=== PATIENT | male | born 1955 | race Caucasian/White ===

== ENCOUNTER → 2022-07-01 08:19 | Outpatient (POV) | payer BC, SELFPAY ==
[2022-07-01 08:30] VITALS: BP 136/78; PULSE 92; RESP 18; O2SAT 98; BMI 27.2
--- NOTE | 2022-07-01 09:10 | EXP.PAIN.OV ---
HPI Data of Consult Patient: new to practice Consult date: 07/01/22 Requesting Physician: Yuli Hyatt APRN Consult Narrative Reason for consult: Low back pain History of present illness: Mr. Damian is a 66 year old male who presents today as a new patient. He is a referral from [facility]. Today he rates his pain a 7 out of 10. Patient states his pain is all in his low back and describes it as a aching sensation with occasional sharp, burning sensations with certain activity. He does state this has been going on for years and progressively worsened over time. Patient denies any specific trauma or injury that initially led to this pain symptoms. He states that he has tried [id number] Tylenol and ibuprofen along with heat and physical therapy in the past. Patient states that physical therapy did make his pain worse. He also states approximately 15 years ago he was with a different pain management group and did try some injections however he does not state that they provided significant improvement. Patient has been to a neurosurgeon Dr. Dixon in [place] who is stating that he may benefit from a lumbar fusion however is recommending conservative therapy first. Patient states he has had recent imaging at [facility]. He states in the past he was put on pain medications however he did not like taking these and now only takes the cmoc-hbj-oyrgxys medications as needed. CC: Yuli Hyatt APRN [facility] Disclaimer: The information contained in this section may have been updated after the patient was seen, as this information can be updated by other users. Medical History (Updated 07/01/22 @ 09:19 by Yuli Hyatt APRN) HLD (hyperlipidemia) HTN (hypertension) Prediabetes Seasonal allergies Surgical History (Updated 07/01/22 @ 08:48 by Bhavana Ash RN) H/O prostate biopsy Family History (Updated 07/01/22 @ 08:47 by Bhavana Ash RN) Other Diabetes Heart disease Hypertension Social History (Updated 07/01/22 @ 08:49 by Bhavana Ash RN) Smoking Status: Current every day smoker alcohol intake: never current occupational status: employed Travel in the last 8 weeks: None Review of Systems Review of Systems Review of systems:: pertinent systems reviewed and negative unless documented below Review of systems (narrative): Review of Systems: General: No recent weight changes, no fever, no sleep disturbances Respiratory: No cough, no shortness of air, no recurring pulmonary infections Cardiovascular/peripheral vascular: No chest pain, no palpitations, no edema, no shortness of breath Gastrointestinal: No new onset incontinence, normal bowel movements reported Genitourinary: No new onset incontinence Musculoskeletal: Low back pain Psychiatric: [Normal mood/affect] Neurological: [Denies weakness in extremities], [denies balance issues] Meds Home Medications and Allergies Home Medications Medication Instructions Recorded Confirmed Type cetirizine 10 mg tablet 10 mg PO DAILY ALLERGIES 07/01/22 07/01/22 History hydrochlorothiazide 25 mg tablet 25 mg PO DAILY Fluid 07/01/22 07/01/22 History hydrocodone 5 mg-acetaminophen 325 1 tab PO Q6H PRN Pain 07/01/22 07/01/22 History mg tablet losartan 100 mg tablet 100 mg PO DAILY BLOOD PRESSURE 07/01/22 07/01/22 History omeprazole 20 mg capsule,delayed 20 mg PO DAILY GERD 07/01/22 07/01/22 History release New Prescriptions to Start Prescriptions: Allergies Allergy/AdvReac Type Severity Reaction Status Date / Time No Known Allergies Allergy Verified 07/01/22 08:51 Objective Vital signs: Pulse Resp BP Pulse Ox 92 H 18 136/78 98 07/01/22 08:30 07/01/22 08:30 07/01/22 08:30 07/01/22 08:30 Narrative: Physical Exam: General: Alert and oriented x3, no acute distress, pleasant and cooperative Lungs: Respirations even and unlabored, symmetrical chest expansion Eyes: PERRL Musculoskeletal: Flexi
== END | disposition home or self-care (01) ==
PROVIDERS: Visit Provider Nurse Practitioner Family
DX: M51.36 Other intervertebral disc degeneration, lumbar region (principal); M47.816 Spondylosis without myelopathy or radiculopathy, lumbar region
CPT/HCPCS: 99202; G0463

== ENCOUNTER 2022-07-14 08:05 | Day surgery (SDC) | payer BC, SELFPAY ==
[2022-07-14 08:21] VITALS: BP 140/63; PULSE 62; RESP 18; TEMP 36.4; O2SAT 97; BMI 27.2
[2022-07-14 08:42] VITALS: BP 147/76; PULSE 87; RESP 18; O2SAT 98
[2022-07-14 08:43] VITALS: BP 147/76; PULSE 87; RESP 18; O2SAT 98
[2022-07-14 08:51] VITALS: BP 132/83; PULSE 82; RESP 18; O2SAT 97
--- NOTE | 2022-07-14 08:51 | P.PCN_ITS ---
Procedure Date: 07/14/22 Time: 08:30 Anesthesiologist:: Albert Gibbs CRNA Complications:: None Pre-procedure Diagnosis:: Degenerative disc lumbar spine multilevels. Lumbar spondylosis. Multilevel lumbar facet arthropathy. Chronic low back pain. Lumbar radiculopathy Post-procedure Diagnosis:: Same. Indications for Procedure:: Patient is a very pleasant 66-year-old male comes our clinic today for bilateral lumbar L3-4, L4-5 medial branch blocks/facet block. Patient describes his low back pain as constant, dull, aching. Patient has pain with flexion, extension, left and right rotation. He rates his pain 7/10 Procedure Details:: Informed consent was obtained and the risk and benefits of the procedure was explained to the patient. Patient was taken to the procedure room where noninvasive monitors were placed, including noninvasive blood pressure cuff as well as pulse oximeter. The area over the lumbar spine was cleansed using chlorhexidine as a cleansing solution. I anesthetized the skin and subcutaneous tissues with 1% Lidocaine. I placed 22-gauge spinal needles into the facet joint/ medial branches of [L3-L4, L4-L5 bilaterally. Needle placement was confirmed with fluoroscopy. After confirmation of needle placement, each site was injected with 1 mL of 1% lidocaine and 0.25 % Marcaine and 10 mg of Depo- Medrol. A total of 80 mg of depo medrol was used for bilateral medial branch blocks of [L3-L4, L4-L5 bilaterally. Patient tolerated the procedure without difficulty. There were no complications. Plan and Disposition:: Patient was evaluated 10 minutes post procedure. He reports 80 to 90% improvement terms of his overall low back pain with flexion, extension, left and right rotation. Patient was discharged without incident.
== END 2022-07-14 08:51 | disposition home or self-care (01) ==
PROVIDERS: PCP Pediatrics; Visit Provider Nurse Anesthetist, Certified Registered
DX: M51.16 Intervertebral disc disorders with radiculopathy, lumbar region (principal); M47.26 Other spondylosis with radiculopathy, lumbar region; G89.29 Other chronic pain
CPT/HCPCS: 64493; 64494; J1040

== ENCOUNTER → 2022-07-29 09:10 | Outpatient (POV) | payer BC, SELFPAY ==
--- NOTE | 2022-07-29 10:12 | EXP.PAIN.SOA ---
[facility] Pain Management SOAP Note Subjective:: Patient is a pleasant 66-year-old male who presents today for follow-up of lumbar medial branch block bilaterally L3-L4 and L4-L5 on 07/14/2022. We are currently treating the patient for degenerative disc disease of lumbar spine multilevels with lumbar radiculopathy symptoms, lumbar spondylosis, lumbar facet arthropathy. Today he rates at least 50% improvement following this injections however he states it only lasted approximately 4 days. Patient rates his pain a 8 out of 10 and denies any new trauma or injury. He continues to have a significant pain in his low back and describes it as an aching, throbbing sensation that is worse with increased activity he does state that he is experiencing more pain along the left side than the right and does have some radiating pain into his left groin. Patient does continue to state that he has trouble with bending, twisting or lifting due to his low back pain. It does interfere with his ability to perform activities of daily living such as cooking and cleaning. Patient is not on any scheduled medications. His Ganesh is [phone]. Its been reviewed and appropriate. Review of Systems: General: No recent weight changes, no fever, no sleep disturbances Respiratory: No cough, no shortness of air, no recurring pulmonary infections Cardiovascular/peripheral vascular: No chest pain, no palpitations, no edema, no shortness of breath Gastrointestinal: No new onset incontinence, normal bowel movements reported Genitourinary: No new onset incontinence Musculoskeletal: Low back pain Psychiatric: [Normal mood/affect] Neurological: [Denies weakness in extremities], [denies balance issues] Objective:: Physical Exam: General: Alert and oriented x3, no acute distress, pleasant and cooperative Lungs: Respirations even and unlabored, symmetrical chest expansion Eyes: PERRL Musculoskeletal: Flexion and extension of lumbar [spine] somewhat guarded secondary to pain, [antalgic gait noted] positive Kemps test Neurological: Speech clear, no gross sensory deficit Assessment:: Degenerative disc disease of lumbar spine with lumbar radiculopathy symptoms, lumbar spondylosis, lumbar facet arthropathy Plan:: Patient continues to experience significant pain in his low back with limited range of motion. Patient did have a positive Kemps test and did get at least 50% improvement from his last lumbar medial branch block. I have discussed with the patient that he may benefit from repeat lumbar medial branch block bilaterally. Risk and benefits were discussed with the patient and he would like to proceed forward with this plan of care. Patient is not on any blood thinners. We will schedule him for a lumbar medial branch block #2 bilaterally L3-L4 and L4-L5. Patient has been instructed to contact the clinic with any concerns before the next appointment. Dr. Campos has reviewed this note and agrees with this plan of care. This note was dictated using voice recognition software and make contain errors or omissions. [facility] Disclaimer: The information contained in this section may have been updated after the patient was seen, as this information can be updated by other users. Medical History HLD (hyperlipidemia) HTN (hypertension) Prediabetes Seasonal allergies Surgical History H/O prostate biopsy Family History Other Diabetes Heart disease Hypertension Social History Smoking Status: Current every day smoker alcohol intake: never current occupational status: employed Travel in the last 8 weeks: None
[2022-07-29 10:39] VITALS: BP 126/71; PULSE 83; RESP 18; O2SAT 97; BMI 27.2
== END ==
PROVIDERS: PCP Pediatrics; Visit Provider Nurse Practitioner Family
DX: M51.16 Intervertebral disc disorders with radiculopathy, lumbar region (principal); M47.26 Other spondylosis with radiculopathy, lumbar region
CPT/HCPCS: 99212; G0463

== ENCOUNTER 2022-09-18 08:26 | Day surgery (SDC) | payer BC, SELFPAY ==
[2022-09-18 08:48] VITALS: BP 117/76; PULSE 85; RESP 16; TEMP 36.9; O2SAT 97; BMI 25.8
--- NOTE | 2022-09-18 09:06 | P.PCN_ITS ---
Procedure Date: 09/18/22 Time: 09:00 Anesthesiologist:: Albert Gibbs CRNA Complications:: None Pre-procedure Diagnosis:: Degenerative disc lumbar spine multilevels. Lumbar radiculopathy. Lumbar spondylosis. Multilevel lumbar facet arthropathy Post-procedure Diagnosis:: Same. Indications for Procedure:: Patient is a very pleasant 67-year-old male that comes our clinic today for bilateral lumbar medial branch block L3-4, L4-5. Patient has had this in the past with moderate improvement terms of his low back pain. Patient reports difficulty standing for any length of time. Difficulty with flexion, extension, left and right rotation. Procedure Details:: Informed consent was obtained and the risk and benefits of the procedure was explained to the patient. Patient was taken to the procedure room where noninvasive monitors were placed, including noninvasive blood pressure cuff as well as pulse oximeter. The area over the lumbar spine was cleansed using chlorhexidine as a cleansing solution. I anesthetized the skin and subcutaneous tissues with 1% Lidocaine. I placed 22-gauge spinal needles into the facet joint/ medial branches of L3-L4, L4-L5 bilaterally. Needle placement was confirmed with fluoroscopy. After confirmation of needle placement, each site was injected with 1 mL of 1% lidocaine and 0.25 % Marcaine and 10 mg of Depo- Medrol. A total of 80 mg of depo medrol was used for bilateral medial branch blocks of L3-L4, L4-L5 bilaterally. Patient tolerated the procedure without difficulty. There were no complications. Plan and Disposition:: Patient was discharged without incident.
[2022-09-18 09:08] VITALS: BP 132/67; PULSE 62; RESP 18; O2SAT 98
[2022-09-18 09:11] VITALS: BP 133/55; PULSE 74; RESP 18; O2SAT 95
[2022-09-18 09:12] VITALS: BP 133/55; PULSE 74; RESP 18; O2SAT 95
== END 2022-09-18 09:08 | disposition home or self-care (01) ==
PROVIDERS: PCP Pediatrics; Visit Provider Nurse Anesthetist, Certified Registered
DX: M47.896 Other spondylosis, lumbar region (principal); M51.16 Intervertebral disc disorders with radiculopathy, lumbar region
CPT/HCPCS: 64493; 64494; J1040

== ENCOUNTER → 2022-10-07 09:33 | Outpatient (POV) | payer BC, SELFPAY ==
--- NOTE | 2022-10-07 09:53 | EXP.PAIN.SOA ---
[facility] Pain Management SOAP Note Subjective:: Patient is a pleasant 67-year-old male who presents today for follow-up of his second lumbar medial branch block L3-L4 and L4-L5 on 09/18/2022. We are currently treating the patient for degenerative disc disease of lumbar spine with lumbar radiculopathy symptoms, lumbar spondylosis, lumbar facet arthropathy. Today he rates his pain a 7 out of 10. Patient denies any new trauma or injury. He does state that he feels like his pain has changed. He does state that he is having more pain in his low back along the left side and into his left hip. Patient does describe this as a burning, stinging sensation that is worse with increased activity. Patient does state that prolonged sitting or standing makes his pain worse. Patient does feel like due to his new pain he is only had about 25% improvement from the previous injection. He states he feels more overall soreness after this injection. Patient does state the pain continues to interfere with his ability perform activities of daily living such as cooking and cleaning. He is not on any scheduled medications. His Ganesh is [id number]. Its been reviewed and appropriate. Review of Systems: General: No recent weight changes, no fever, no sleep disturbances Respiratory: No cough, no shortness of air, no recurring pulmonary infections Cardiovascular/peripheral vascular: No chest pain, no palpitations, no edema, no shortness of breath Gastrointestinal: No new onset incontinence, normal bowel movements reported Genitourinary: No new onset incontinence Musculoskeletal: Low back pain left hip pain Psychiatric: [Normal mood/affect] Neurological: [Denies weakness in extremities], [denies balance issues] Objective:: Physical Exam: General: Alert and oriented x3, no acute distress, pleasant and cooperative Lungs: Respirations even and unlabored, symmetrical chest expansion Eyes: PERRL Musculoskeletal: Flexion and extension of lumbar [spine] somewhat guarded secondary to pain, [antalgic gait noted] extreme point tenderness along left SI with positive left Cristiano's, Ken's, Gaenslen's, compression and distraction exam Neurological: Speech clear, no gross sensory deficit Assessment:: Degenerative disc disease of lumbar spine with lumbar radiculopathy symptoms, lumbar spondylosis, lumbar facet arthropathy, left-sided sacroiliitis Plan:: Patient is experiencing worsening pain and he has low back and left hip. Patient did have limited range of motion of his lumbar spine with extreme point tenderness along his left SI and a positive left Cristiano's, Ken's, Gaenslen's, compression and distraction exam. I have discussed with the patient that he may benefit from a left SI injection. Risk and benefits were explained to the patient he would like to proceed forward with this plan of care. I have also counseled the patient that following this upcoming injection he may overall notice once this pain is taking care of that the lumbar medial branch block did provide much more relief than what he initially thought due to having the new sacroiliitis pain. We will follow-up with this at his next follow-up. I will also order the patient a compounded cream. Patient will be scheduled for a diagnostic left SI injection. Patient has been instructed to contact the clinic with any concerns before the next appointment. Dr. Campos has reviewed this note and agrees with this plan of care. This note was dictated using voice recognition software and make contain errors or omissions. [facility] Disclaimer: The information contained in this section may have been updated after the patient was seen, as this information can be updated by other users. Medical History HLD (hyperlipidemia) HTN (hypertension) Prediabetes Seasonal allergies Surgical History H/O prostate biopsy Family History (Re
[2022-10-07 10:30] VITALS: BP 149/74; PULSE 74; RESP 18; O2SAT 98; BMI 26.5
== END ==
PROVIDERS: Visit Provider Nurse Practitioner Family
DX: M51.16 Intervertebral disc disorders with radiculopathy, lumbar region (principal); M47.26 Other spondylosis with radiculopathy, lumbar region; M46.1 Sacroiliitis, not elsewhere classified
CPT/HCPCS: 99212; G0463

== ENCOUNTER 2022-10-27 07:47 | Day surgery (SDC) | payer BC, SELFPAY ==
[2022-10-27 08:13] VITALS: BP 130/76; PULSE 92; RESP 18; TEMP 36.5; O2SAT 98; BMI 26.5
[2022-10-27 08:33] VITALS: BP 140/73; PULSE 85; RESP 18; O2SAT 95
[2022-10-27 08:34] VITALS: BP 140/73; PULSE 85; RESP 18; O2SAT 95
--- NOTE | 2022-10-27 08:39 | P.PCN_ITS ---
Procedure Date: 10/27/22 Time: 08:20 Anesthesiologist:: Albert Gibbs CRNA Complications:: None Pre-procedure Diagnosis:: Left sacroiliitis Post-procedure Diagnosis:: Same Indications for Procedure:: Very pleasant 67-year-old male that comes our clinic today for repeat left sacroiliac joint injection of cortisone. Patient has left posterior hip pain he describes as constant, dull, aching. He reports responding well to previous injections in the left sacroiliac joint. He rates his pain today 7/10. Procedure Details:: Procedure: Left sacroiliac injection under fluoroscopy Informed consent was obtained and the risk and benefits of the procedure were explained to the patient.~ The patient was taken to the procedure room and noninvasive monitors were placed including noninvasive blood pressure cuff and pulse oximeter.~ The patient was placed prone on the procedure table.~ The~ left hip was cleansed using Betadine as a cleansing solution.~ C-arm fluorosocpy was used to view the left SI joint.~ The skin and subcutaneous tissues were anesthetized using Lidocaine 1.5% and a 25-gauge needle.~ After this, a 22-gauge spinal needle was inserted under fluoroscopic guidance into the inferior aspect of the left SI joint.~ Omnipaque dye was injected and a good spread was seen throughout the joint.~ After this, approximately 5 mL of bupivacaine 0.25% and Depo-Medrol 40 mg was incrementally injected into the sacroiliac joint.~ The pa tient tolerated the procedure well with no complications.~ The patient was observed in the Pain Clinic for a period of 30-45 minutes, then discharged home neurologically intact.~ Plan and Disposition:: Patient was reevaluated 10 minutes post procedure. He reports 90% relief in terms of his left posterior hip pain.
[2022-10-27 08:40] VITALS: BP 146/84; PULSE 84; RESP 18; O2SAT 98
== END 2022-10-27 08:40 | disposition home or self-care (01) ==
PROVIDERS: PCP Pediatrics; Visit Provider Nurse Anesthetist, Certified Registered
DX: M46.1 Sacroiliitis, not elsewhere classified (principal)
CPT/HCPCS: 27096; G0260; J1040

== ENCOUNTER → 2022-11-16 08:51 | Outpatient (POV) | payer BC, SELFPAY ==
[2022-11-16 09:13] VITALS: BP 135/75; PULSE 87; RESP 20; BMI 26.5
--- NOTE | 2022-11-16 12:39 | A.OFFVIS_ITS ---
[facility] Pain Management SOAP Note Subjective:: This patient is a very pleasant 67-year-old male that comes our clinic today for follow-up visit after receiving left sacroiliac joint injection on 10/27/2022. Patient reports moderate relief in terms of his left posterior hip pain. Patient is also status post medial branch block lumbar spine L4-5, L5-S1. Patient reports he received moderate relief from this injection as well. Patient's main complaint today is low back pain as well as bilateral leg radiculopathy to the feet. Patient has difficulty standing or ambulating for any length of time. Sitting relieves his pain. Patient works at [employer] full- time. He is currently being managed with gabapentin 300 mg 1 p.o. 3 times daily. The patient's Ganesh #[id number] has been reviewed and appropriate. I discussed in detail with the patient regarding lumbar epidural steroid injection at the L4-5 level. Patient is continuing with some degree of low back pain and bilateral hip and leg radicular symptoms. He describes the low back pain as constant, dull, aching. He rates his pain today 6/10 Objective:: Patient is awake alert [place] x3. In no acute distress. Flexion-extension lumbar spine somewhat guarded secondary to pain. Deep tendon reflexes upper and lower extremities normal. Motor strength upper and lower extremities normal. There is no gross sensory deficit. Gait is normal. Assessment:: Degenerative disease lumbar spine multilevels. Lumbar radiculopathy. Bilateral sacroiliitis. Plan:: Discussed in detail with the patient regarding lumbar epidural steroid injec tion. Answered his questions. He wishes to proceed. We discussed risk versus benefits. His Ganesh #[id number] has been reviewed and appropriate. We will refill his gabapentin 300 mg 1 p.o. 3 times daily. [facility] Disclaimer: The information contained in this section may have been updated after the patient was seen, as this information can be updated by other users. Medical History HLD (hyperlipidemia) HTN (hypertension) Prediabetes Seasonal allergies Surgical History H/O prostate biopsy Family History Other Diabetes Heart disease Hypertension Social History Smoking Status: Current every day smoker alcohol intake: never substance use type: denies use current occupational status: other Travel in the last 8 weeks: None
== END | disposition home or self-care (01) ==
PROVIDERS: PCP Pediatrics; Visit Provider Nurse Anesthetist, Certified Registered
DX: M51.16 Intervertebral disc disorders with radiculopathy, lumbar region (principal); M46.1 Sacroiliitis, not elsewhere classified
CPT/HCPCS: 99212; G0463

== ENCOUNTER 2022-12-01 07:54 | Day surgery (SDC) | payer BC, SELFPAY ==
[2022-12-01 08:08] VITALS: BP 145/82; PULSE 81; RESP 20; TEMP 36.6; O2SAT 97; BMI 27.2
[2022-12-01 08:15] VITALS: BP 145/82; PULSE 81; RESP 18; TEMP 36.6; O2SAT 97; BMI 27.2
[2022-12-01 08:28] VITALS: BP 162/82; PULSE 67; RESP 18; O2SAT 95
[2022-12-01 08:29] VITALS: BP 162/82; PULSE 71; RESP 18; O2SAT 97
[2022-12-01 08:35] VITALS: BP 146/74; PULSE 72; RESP 18; O2SAT 97
--- NOTE | 2022-12-01 09:07 | P.PCN_ITS ---
Procedure Date: 12/01/22 Time: 08:19 Anesthesiologist:: Albert Gibbs CRNA Complications:: None Pre-procedure Diagnosis:: Degenerative disc disease lumbar spine multilevels. Lumbar radiculopathy. Post-procedure Diagnosis:: Same. Indications for Procedure:: Patient is a very pleasant 67-year-old male who comes our clinic today for a lumbar epidural steroid injection at L4-5 level. Patient complains of low back pain as well as bilateral hip and leg radicular symptoms at times. He is being managed with gabapentin 300 mg 1 p.o. 3 times daily. Patient reports this medicine helps with his pain on a daily basis. Patient also reports bilateral hip and leg radicular symptoms at times. He spends 8 to 12 hours on his feet daily working at [employer]. He rates his pain today 07/18. Procedure Details:: Procedure: Lumbar epidural steroid injection under fluoroscopy Informed consent was obtained and the risks and benefits of the procedure were explained to the patient. The patient was taken to the procedure room and noninvasive monitors placed, including noninvasive blood pressure cuff and pulse oximeter. The back was viewed using C-arm Fluoroscopy and prepped using Chloraprep as a cleansing solution and the L4-L5 interspace was palpated. Skin and subcutaneous tissues were anesthetized using lidocaine 1.5% and a 25-gauge needle. After this, an 18-gauge Touhy epidural needle was placed into the L4-L5 interspace and advanced using fluoroscopic guidance and loss of resistance to air until the epidural space was encountered. After confirmation of needle placement in the epidural space, with dye, a solution containing normal saline, 3 mL and Depo-Medrol 80 mg were incrementally injected into the lumbar epidural space. The patient tolerated the procedure well with no complications. The patient was observed in the Pain Clinic and then discharged home neurologically intact. Plan and Disposition:: Patient was discharged without incident.
== END 2022-12-01 08:35 | disposition home or self-care (01) ==
PROVIDERS: PCP Pediatrics; Visit Provider Nurse Anesthetist, Certified Registered
DX: M51.16 Intervertebral disc disorders with radiculopathy, lumbar region (principal)
CPT/HCPCS: 62323; J1040

== ENCOUNTER → 2022-12-16 08:21 | Outpatient (POV) | payer BC, SELFPAY ==
[2022-12-16 08:38] VITALS: BP 140/75; PULSE 77; RESP 18; O2SAT 95; BMI 27.2
--- NOTE | 2022-12-16 08:52 | EXP.PAIN.SOA ---
[facility] Pain Management SOAP Note Subjective:: Patient is a pleasant 67-year-old male who presents today for follow-up of lumbar epidural steroid injection L4-L5 on 12/01/2022. We are currently treating the patient for degenerative disc disease of lumbar spine with lumbar radiculopathy symptoms, lumbar spondylosis, lumbar facet arthropathy. Today he rates his pain a 4 out of 10. Patient denies any new trauma or injury. He does state that he has had at least 50% improvement following this injection and feels like it still continuing to provide relief. He states overall he has had a decrease in his pain level and neck can move around easier. He does state though, he continues to have more pain along the left side and weakness that he notices more prominent with increased activity such as walking. Patient is currently managed with gabapentin 300 mg 3 times a day and diclofenac 50 mg twice daily. Patient denies any side effects from these medications. He states that he has noticed additional improvement with this medication combination. He does think that possibly the gabapentin would do better at a higher dosage. He is requesting a slight increase if possible. His Ganesh has been reviewed and is appropriate. Review of Systems: General: No recent weight changes, no fever, no sleep disturbances Respiratory: No cough, no shortness of air, no recurring pulmonary infections Cardiovascular/peripheral vascular: No chest pain, no palpitations, no edema, no shortness of breath Gastrointestinal: No new onset incontinence, normal bowel movements reported Genitourinary: No new onset incontinence Musculoskeletal: Low back pain Psychiatric: [Normal mood/affect] Neurological: [Denies weakness in extremities], [denies balance issues] Objective:: Physical Exam: General: Alert and oriented x3, no acute distress, pleasant and cooperative Lungs: Respirations even and unlabored, symmetrical chest expansion Eyes: PERRL Musculoskeletal: Flexion and extension of lumbar [spine] somewhat guarded secondary to pain, [antalgic gait noted] Neurological: Speech clear, no gross sensory deficit Assessment:: Degenerative disc disease of lumbar spine with lumbar radiculopathy symptoms, lumbar spondylosis, lumbar facet arthropathy Plan:: I will refill the patient's diclofenac 50 mg twice daily and gabapentin 300 mg and change it to 4 times a day. Patient will be given a 1 month supply of these medications. Patient will return to clinic in 1 month for reevaluation of symptoms and plan of care. Patient has been instructed to contact the clinic with any concerns before the next appointment. Dr. Campos has reviewed this note and agrees with this plan of care. This note was dictated using voice recognition software and make contain errors or omissions. [facility] Disclaimer: The information contained in this section may have been updated after the patient was seen, as this information can be updated by other users. Medical History HLD (hyperlipidemia) HTN (hypertension) Prediabetes Seasonal allergies Surgical History H/O prostate biopsy Family History Other Diabetes Heart disease Hypertension Social History Smoking Status: Current every day smoker alcohol intake: never substance use type: denies use current occupational status: retired Travel in the last 8 weeks: None
== END | disposition home or self-care (01) ==
PROVIDERS: PCP Pediatrics; Visit Provider Nurse Practitioner Family
DX: M51.16 Intervertebral disc disorders with radiculopathy, lumbar region (principal); M47.26 Other spondylosis with radiculopathy, lumbar region
CPT/HCPCS: 99212; G0463

== ENCOUNTER → 2023-01-13 08:24 | Outpatient (POV) | payer BC, SELFPAY ==
[2023-01-13 08:44] VITALS: BP 156/78; PULSE 80; RESP 18; O2SAT 95; BMI 27.2
--- NOTE | 2023-01-13 09:15 | XR_ITS ---
FINAL REPORT CLINICAL HISTORY: LOW BACK PAIN, NUMBNESS/TINGLING COMPARISON: None FINDINGS: 5 views of the lumbar spine were obtained. There is no evidence of fracture or dislocation. There is moderate degenerative change present. There is severe degenerative disc disease present at the L2-3 level with mild retrolisthesis of L2 on L3. There is a mild left curvature of the lumbar spine. Facet osteoarthropathy is present in the lower lumbar spine. Mild vascular calcifications are noted. IMPRESSION: Degenerative changes present in the lumbar spine, most severe at the L2-3 level with mild retrolisthesis of L2 on L3. Reviewed, Interpreted and Dictated by Easton Jacome III, MD Transcribed by Jessica Sharma Authenticated and [facility]
--- NOTE | 2023-01-13 09:32 | EXP.PAIN.SOA ---
[facility] Pain Management SOAP Note Subjective:: Patient is a pleasant 67-year-old male who presents today for follow-up and medication refill. We are currently treating the patient for degenerative disc disease of lumbar spine with lumbar radiculopathy symptoms, lumbar spondylosis, lumbar facet arthropathy. Today he rates his pain a 6 out of 10. Patient denies any new trauma or injury. Patient states he still continues to have worsening pain in his low back with radiating symptoms into his leg. He does describe this as an aching, throbbing sensation with burning and stinging sensation. Patient states the pain is worse with increased activity and it frequently interferes with his ability perform activities of daily living such as cooking and cleaning. Patient did have more than 50% relief on his last epidural and is interested in repeating this injection. Patient does also state he continues to feel like his back symptoms have changed and that he felt like his vertebra have moved from what they had been. Patient denies any recent imaging. He is currently managed with diclofenac 50 mg twice a day and gabapentin 300 mg 4 times a day. Patient denies any side effects from this medication. He states it does help manage some of his symptoms. He is also prescribed compounding cream. His Ganesh has been reviewed and appropriate. Review of Systems: General: No recent weight changes, no fever, no sleep disturbances Respiratory: No cough, no shortness of air, no recurring pulmonary infections Cardiovascular/peripheral vascular: No chest pain, no palpitations, no edema, no shortness of breath Gastrointestinal: No new onset incontinence, normal bowel movements reported Genitourinary: No new onset incontinence Musculoskeletal: Low back pain left hip pain Psychiatric: [Normal mood/affect] Neurological: [Denies weakness in extremities], [denies balance issues] Objective:: Physical Exam: General: Alert and oriented x3, no acute distress, pleasant and cooperative Lungs: Respirations even and unlabored, symmetrical chest expansion Eyes: PERRL Musculoskeletal: Flexion and extension of lumbar [spine] somewhat guarded secondary to pain, [antalgic gait noted] Neurological: Speech clear, no gross sensory deficit Assessment:: Degenerative disc disease of lumbar spine with lumbar radiculopathy symptoms, lumbar facet arthropathy, lumbar spondylosis Plan:: Patient continues to experience worsening low back and leg pain with limited range of motion. I have discussed with the patient due to him feeling that his back pain has changed that I will order x-ray and MRI without contrast of his lumbar spine. I also discussed with the patient that he may benefit from a repeat lumbar epidural steroid injection. Risk and benefits were discussed with the patient and he would like to proceed forward with this plan of care. Patient did previously have at least 50% improvement following the last epidural injection. I will refill the patient's gabapentin 300 mg 4 times a day and diclofenac 50 mg twice a day and provide a 1 month supply of this medication. Patient will be scheduled for an LESI L4 4 through L5. Patient has been instructed to contact the clinic with any concerns before the next appointment. Dr. Campos has reviewed this note and agrees with this plan of care. This note was dictated using voice recognition software and make contain errors or omissions. [facility] Disclaimer: The information contained in this section may have been updated after the patient was seen, as this information can be updated by other users. Medical History HLD (hyperlipidemia) HTN (hypertension) Prediabetes Seasonal allergies Surgical History H/O prostate biopsy Family History Other Diabetes Heart disease Hypertension
== END | disposition home or self-care (01) ==
PROVIDERS: Visit Provider Nurse Practitioner Family
DX: M51.16 Intervertebral disc disorders with radiculopathy, lumbar region (principal); M47.26 Other spondylosis with radiculopathy, lumbar region
CPT/HCPCS: 72110; 99212; G0463

== ENCOUNTER → 2023-01-13 09:11 | Outpatient (CLI) | payer BC, SELFPAY | PROVIDERS: PCP Pediatrics; Visit Provider Nurse Practitioner Family | DX: M54.50 Low back pain, unspecified (principal) ==

== ENCOUNTER 2023-01-26 08:25 | Day surgery (SDC) | payer BC, SELFPAY ==
[2023-01-26 08:35] VITALS: BP 133/66; PULSE 72; O2SAT 93; BMI 27.2
[2023-01-26 09:01] VITALS: BP 111/66; PULSE 78; RESP 18; O2SAT 95
[2023-01-26 09:04] VITALS: BP 111/66; PULSE 78; RESP 18; O2SAT 95
--- NOTE | 2023-01-26 09:05 | P.PCN_ITS ---
Procedure Date: 01/26/23 Time: 09:00 Anesthesiologist:: Albert Gibbs CRNA Complications:: None Pre-procedure Diagnosis:: Degenerative disc lumbar spine multilevels. Lumbar radiculopathy. Lumbar spondylosis. Multilevel lumbar facet arthropathy. Post-procedure Diagnosis:: Same. Indications for Procedure:: Patient is a very pleasant 67-year-old male comes our clinic today for repeat lumbar epidural steroid injection at the L4-5 level. Patient reports moderate to significant improvement terms of his overall low back pain as well as bilateral hip and leg radicular symptoms with previous injections at the same level. He rates his pain 7/10. Procedure Details:: Procedure: Lumbar epidural steroid injection under fluoroscopy Informed consent was obtained and the risks and benefits of the procedure were explained to the patient. The patient was taken to the procedure room and noninvasive monitors placed, including noninvasive blood pressure cuff and pulse oximeter. The back was viewed using C-arm Fluoroscopy and prepped using Chl oraprep as a cleansing solution and the L4-L5 interspace was palpated. Skin and subcutaneous tissues were anesthetized using lidocaine 1.5% and a 25-gauge needle. After this, an 18-gauge Touhy epidural needle was placed into the L4-L5 interspace and advanced using fluoroscopic guidance and loss of resistance to air until the epidural space was encountered. After confirmation of needle placement in the epidural space, with dye, a solution containing normal saline, 3 mL and Depo-Medrol 80 mg were incrementally injected into the lumbar epidural space. The patient tolerated the procedure well with no complications. The patient was observed in the Pain Clinic and then discharged home neurologically intact. Plan and Disposition:: Patient was discharged without incident.
[2023-01-26 09:10] VITALS: BP 105/66; PULSE 74; O2SAT 93
== END 2023-01-26 09:06 | disposition home or self-care (01) ==
PROVIDERS: PCP Pediatrics; Visit Provider Nurse Anesthetist, Certified Registered
DX: M51.16 Intervertebral disc disorders with radiculopathy, lumbar region (principal); M47.26 Other spondylosis with radiculopathy, lumbar region
CPT/HCPCS: 62323; J1040

== ENCOUNTER 2023-02-11 09:31 | Outpatient (CLI) | payer BC, SELFPAY ==
--- NOTE | 2023-02-11 09:35 | MR_ITS ---
FINAL REPORT CLINICAL HISTORY: LBP WITH RADICULOPATHY MOSTLY TO THE LEFT SIDE. COMPARISON: None FINDINGS: Multiplanar MR imaging of the lumbar spine was performed without contrast. On the sagittal T2-weighted images, disc degeneration and endplate changes are seen at multiple levels. There is mild retrolisthesis of L2 on L3 and L3 on L4. There is mild anterolisthesis of L4 on L5. There is no evidence of fracture. No bony mass is identified. The conus has an unremarkable appearance. L1-2: There is no significant canal stenosis or neural foraminal narrowing. L2-3: An annular bulge is present with facet osteoarthropathy and osteophytes. There is a right foraminal disc protrusion which produces moderate right and mild left neural foraminal narrowing. L3-4: An annular bulge is present with facet osteoarthropathy. There is moderate bilateral neural foraminal narrowing present. L4-5: An annular bulge is present with facet osteoarthropathy. There is mild bilateral neural foraminal narrowing. L5-S1: Facet osteoarthropathy is present. There is no significant canal stenosis or neural foraminal narrowing. IMPRESSION: Multilevel degenerative disc disease and spondylosis as described. Reviewed, Interpreted and Dictated by Easton Jacome III, MD Transcribed by Jessica Sharma Authenticated and [facility]
== END 2023-02-11 23:59 ==
LOC: RAD 09:31
PROVIDERS: PCP Nurse Practitioner Family; Visit Provider Nurse Practitioner Family
DX: M54.50 Low back pain, unspecified (principal)
CPT/HCPCS: 72148; 76376

== ENCOUNTER → 2023-02-12 09:21 | Outpatient (POV) | payer BC, SELFPAY ==
[2023-02-12 09:49] VITALS: RESP 18; BMI 27.2
--- NOTE | 2023-02-12 10:04 | A.OFFVIS_ITS ---
[facility] Pain Management SOAP Note Subjective:: Patient is a pleasant 67-year-old male who presents today for follow-up of lumbar epidural steroid injection L4-L5 on 01/26/2023 and MRI follow-up. We are currently treating the patient for degenerative disc disease of lumbar spine with lumbar radiculopathy symptoms, lumbar spondylosis, lumbar facet arthropathy. Today he rates his pain a 6 out of 10. Patient denies any new trauma or injury. He does state that he had his pain go down to a 4 out of 10 following this injection and feels like it is still helping. He does state that the pain does come and go in certain days he is experiencing more. He does state overall that it has helped his and that he has been able to increase his a ctivity with decreased pain symptoms. Patient is currently managed with diclofenac 50 mg twice a day and gabapentin 300 mg 4 times a day. Patient denies any side effects from these medications. He does state that he has had an occasional episode of lightheadedness following taking his gabapentin. Patient denies any other extenuating circumstances while he takes this medication. He states he had talked to his primary care provider and had mentioned about Lyrica. His Ganesh has been reviewed and is appropriate. Review of Systems: General: No recent weight changes, no fever, no sleep disturbances Respiratory: No cough, no shortness of air, no recurring pulmonary infections Cardiovascular/peripheral vascular: No chest pain, no palpitations, no edema, no shortness of breath Gastrointestinal: No new onset incontinence, normal bowel movements reported Genitourinary: No new onset incontinence Musculoskeletal: Low back pain Psychiatric: [Normal mood/affect] Neurological: [Denies weakness in extremities], [denies balance issues] Objective:: Physical Exam: General: Alert and oriented x3, no acute distress, pleasant and cooperative Lungs: Respirations even and unlabored, symmetrical chest expansion Eyes: PERRL Musculoskeletal: Flexion and extension of lumbar [spine] somewhat guarded secondary to pain, [antalgic gait noted] Neurological: Speech clear, no gross sensory deficit FINAL REPORT CLINICAL HISTORY: LBP WITH RADICULOPATHY MOSTLY TO THE LEFT SIDE. COMPARISON: None FINDINGS: Multiplanar MR imaging of the lumbar spine was performed without contrast. On the sagittal T2-weighted images, disc degeneration and endplate changes are seen at multiple levels. There is mild retrolisthesis of L2 on L3 and L3 on L4. There is mild anterolisthesis of L4 on L5. There is no evidence of fracture. No bony mass is identified. The conus has an unremarkable appearance. L1-2: There is no significant canal stenosis or neural foraminal narrowing. L2-3: An annular bulge is present with facet osteoarthropathy and osteophytes. There is a right foraminal disc protrusion which produces moderate right and mild left neural foraminal narrowing. L3-4: An annular bulge is present with facet osteoarthropathy. There is moderate bilateral neural foraminal narrowing present. L4-5: An annular bulge is present with facet osteoarthropathy. There is mild bilateral neural foraminal narrowing. L5-S1: Facet osteoarthropathy is present. There is no significant canal stenosis or neural foraminal narrowing. IMPRESSION: Multilevel degenerative disc disease and spondylosis as described. Reviewed, Interpreted and Dictated by Easton Jacome III, MD Transcribed by Jessica Sharma Authenticated and [facility] Assessment:: Degenerative disc disease of lumbar spine with lumbar radiculopathy symptoms, lumbar spondylosis, lumbar facet arthropathy Plan:: Patient did have improvement following his lumbar epidural injection. I will refill the patient's diclofenac 50 mg twice a day and gabapentin 300 mg 4 times a day. I did go over with the patient that if he would like to try Lyrica instead of the gabapentin that I would recommend we decrease his gabapentin down to 3 times a day and then twice a day before changing to the Lyrica. I have went over the risk and benefits and at this time the patient would like to wait. He states that the lightheadedness is only every so often and seems random. I have recommended that he make a journal and try and keep track of any extenuating circumstances of when the lightheadedness occurs. Patient will return to clinic in 1 month for reevaluation of symptoms and plan of care. Patient has been instructed to contact the clinic with any concerns before the next appointment. Dr. Campos has reviewed this note and agrees with this plan of care. This note was dictated using voice recognition software and make contain errors or omissions. [facility] Disclaimer: The information contained in this section may have been updated after the patient was seen, as this information can be updated by other users. Medical History HLD (hyperlipidemia) HTN (hypertension) Prediabetes Seasonal allergies Surgical History H/O prostate biopsy Family History Other Diabetes Heart disease Hypertension Social History (Updated 01/26/23 @ 08:36 by Lisa Marie RN) Smoking Status: Current every day smoker alcohol intake: never substance use type: denies use current occupational status: retired Travel in the last 8 weeks: None
== END | disposition home or self-care (01) ==
PROVIDERS: Visit Provider Nurse Practitioner Family
DX: M51.16 Intervertebral disc disorders with radiculopathy, lumbar region (principal); M47.26 Other spondylosis with radiculopathy, lumbar region
CPT/HCPCS: 99212; G0463

== ENCOUNTER 2023-04-12 08:54 | Outpatient (POV) | payer BC, SELFPAY ==
[2023-04-12 08:56] VITALS: BP 127/73; PULSE 86; RESP 18; BMI 25.8
--- NOTE | 2023-04-12 09:04 | EXP.PAIN.SOA ---
[facility] Pain Management SOAP Note Subjective:: Patient is a pleasant 67-year-old male who presents today for follow-up and medication refill. We are currently treating the patient for degenerative disc disease of lumbar spine with lumbar radiculopathy symptoms, lumbar spondylosis, lumbar facet arthropathy. Today he rates his pain a 7 out of 10. Patient denies any new trauma or injury. Patient states he still continues to have worsening pain in his low back with radiating symptoms into his left leg. He does describe this as an aching, throbbing sensation with burning and stinging sensation. He states he feels like frequently he has a lot of weakness in this extremity and will feel like his leg gives to give out. Patient states that he frequently has to hold on to objects around him for fear of falling. Patient states the pain is worse with increased activity and it frequently interferes with his ability perform activities of daily living such as cooking and cleaning. He also states that he continues to have left shoulder pain and denies any advanced imaging in the past. He states years ago he did have some x-ray imaging however did not really have significant findings. He is currently managed with diclofenac 50 mg twice a day and gabapentin 300 mg 4 times a day. Patient denies any side effects from this medication. He does state from our last conversation about possibly switching over to the Lyrica that he has decreased his gabapentin to twice a day and would like to try the new medication. He is also prescribed compounding cream. His Ganesh has been reviewed and appropriate. Review of Systems: General: No recent weight changes, no fever, no sleep disturbances Respiratory: No cough, no shortness of air, no recurring pulmonary infections Cardiovascular/peripheral vascular: No chest pain, no palpitations, no edema, no shortness of breath Gastrointestinal: No new onset incontinence, normal bowel movements reported Genitourinary: No new onset incontinence Musculoskeletal: Low back pain, left shoulder pain Psychiatric: [Normal mood/affect] Neurological: [Denies weakness in extremities], [denies balance issues] Objective:: Physical Exam: General: Alert and oriented x3, no acute distress, pleasant and cooperative Lungs: Respirations even and unlabored, symmetrical chest expansion Eyes: PERRL Musculoskeletal: Flexion and extension of lumbar [spine] somewhat guarded secondary to pain, [antalgic gait noted] positive left leg raise with decreased sensation light touch and decreased reflexes Neurological: Speech clear, no gross sensory deficit Assessment:: Degenerative disc disease of lumbar spine with lumbar radiculopathy symptoms, lumbar spondylosis, lumbar facet arthropathy Plan:: Patient is experiencing worsening pain in his low back and left leg with a positive left leg raise and decreased sensation to his lower extremity as well as decreased reflexes. I have discussed with the patient that he may benefit from a left transforaminal epidural. Risk and benefits were discussed with the patient and he would like to proceed forward with this plan of care. I have also discussed with the patient that we can switch over to the pregabalin and I will send in a 1 month supply of pregabalin 150 mg 3 times a day as well as his diclofenac 50 mg twice a day. I will also order x-ray and MRI without contrast imaging of his left shoulder. Patient will be scheduled for a left transforaminal epidural steroid injection L3-L4 and L4-L5 under fluoroscopy. Patient has been instructed to contact the clinic with any concerns before the next appointment. Dr. Campos has reviewed this note and agrees with this plan of care. This note was dictated using voice recognition software and make contain errors or omissions. [facility] Disclaimer: The information contained in this section may have been updated after the patient was seen, as this information can be updated by other users. Medical History HLD (hyperlipidemia) HTN (hypertension) Prediabetes Seasonal allergies Surgical History H/O prostate biopsy Family History Other Diabetes Heart disease Hypertension Social History (Updated 01/26/23 @ 08:36 by Lisa aMrie RN) Smoking Status: Current every day smoker alcohol intake: never substance use type: denies use current occupational status: retired Travel in the last 8 weeks: None
--- NOTE | 2023-04-12 09:23 | XR_ITS ---
FINAL REPORT CLINICAL HISTORY: LT SHOULDER PAIN FINDINGS: LEFT SHOULDER 3 views of the left shoulder were obtained. There is no acute fracture or dislocation. There is mild AC joint arthrosis. Visualized joint spaces are normally aligned. Soft tissues are unremarkable. IMPRESSION: No acute bony abnormality. Reviewed, Interpreted and Dictated by Easton Jacome III, MD Transcribed by Alisha Randle Authenticated and [facility]
== END 2023-04-12 23:59 | disposition home or self-care (01) ==
PROVIDERS: PCP Pediatrics; Visit Provider Nurse Practitioner Family
DX: M51.16 Intervertebral disc disorders with radiculopathy, lumbar region (principal); M47.26 Other spondylosis with radiculopathy, lumbar region; M25.512 Pain in left shoulder
CPT/HCPCS: 73030; 99212; G0463

== ENCOUNTER 2023-05-04 07:52 | Day surgery (SDC) | payer BC, SELFPAY ==
[2023-05-04 08:17] VITALS: BP 159/91; PULSE 65; RESP 16; TEMP 36.8; O2SAT 98; BMI 28.7
[2023-05-04] MEDS: LIDOCAINE 1% 5ML PF VIAL 5 ML (08:32)
[2023-05-04] MEDS: IOPAMIDOL-200 (41%);10ML VIAL 10 ML IV (08:32)
[2023-05-04 08:33] VITALS: BP 145/69; PULSE 70; RESP 18; O2SAT 97
[2023-05-04 08:34] VITALS: BP 145/69; PULSE 64; RESP 18; O2SAT 97
--- NOTE | 2023-05-04 08:37 | P.PCN_ITS ---
Procedure Date: 05/04/23 Time: 08:30 Anesthesiologist:: Albert Gibbs CRNA Complications:: None Pre-procedure Diagnosis:: Degenerative disc lumbar spine multilevels. Lumbar radiculopathy. Lumbar disc bulge L3-4, L4-5. Lumbar spondylosis. Multilevel lumbar facet arthropathy. Post-procedure Diagnosis:: Same. Indications for Procedure:: Patient is a very pleasant 67-year-old male that comes our clinic today for left L3-4 and L4-5 transforaminal epidural steroid injection. Patient reports left hip and leg pain that increases with activity. Patient notices burning sensation in the anterior thigh. Procedure Details:: Details of the procedure were explained to the patient. The patient was taken the procedure room placed in the prone position. The area of the lumbar spine was cleansed using chlorhexidine as a cleansing solution. At this time using fluoroscopy guidance markers were placed on the left lateral border of the L3 and L4 vertebral body. The skin and subcutaneous tissue was anesthetized using 1% lidocaine and 25-gauge needle. At this time using a 22-gauge 3-1/2 inch spinal needle the left upper one third of the L3-4 foramen was accessed. The same was done at the left L4-5 foramen. Needle positions were confirmed and a lateral view using fluoroscopy and contrast dye. At this time 1 cc of 1% lidocaine +20 mg of Depo-Medrol was injected at each level after negative aspiration. [place] were removed. Band-Aid applied. Patient tolerated the procedure without difficulty. There are no complications. Plan and Disposition:: Patient was discharged without incident.
[2023-05-04 08:39] VITALS: BP 162/78; PULSE 59; RESP 18; O2SAT 98
== END 2023-05-04 08:39 | disposition home or self-care (01) ==
PROVIDERS: PCP Pediatrics; Visit Provider Nurse Anesthetist, Certified Registered
DX: M51.16 Intervertebral disc disorders with radiculopathy, lumbar region (principal); M51.26 Other intervertebral disc displacement, lumbar region; M47.26 Other spondylosis with radiculopathy, lumbar region
CPT/HCPCS: 64483; 64484; J1030; Q9966

== ENCOUNTER 2023-05-17 08:41 | Outpatient (POV) | payer BC, SELFPAY ==
[2023-05-17 08:46] VITALS: BP 134/74; PULSE 78; RESP 18; O2SAT 97; BMI 27.9
--- NOTE | 2023-05-17 09:05 | EXP.PAIN.SOA ---
[facility] Pain Management SOAP Note Subjective:: Patient is a pleasant 67-year-old male who presents today for medication refill and follow-up. He did have a left transforaminal epidural steroid injection L3-L4 and L4-L5 on 05/04/2023. Patient does state that his pain today is a 7 out of 10 and denies any new trauma or injury. He does state that he has had significant improvement in his left leg symptoms following this injections. He states he has had at least 50% improvement and feels like the pain is not as severe into his left leg. He does state that he continues to experience more pain in and around his low back and bilateral hips with the left side being worse. He describes this as an aching, throbbing sensation with some burning and stinging sensation. He does state the pain interferes with his ability to perform activities of daily living such as cooking and cleaning. He also states that he continues to have some left shoulder pain and did go and complete his x-ray imaging. Patient is currently managed with diclofenac 50 mg twice a day and pregabalin 150 mg 3 times a day. He does state that he feels like the pregabalin is working better than the gabapentin wants. He states that he is still getting adjusted to it and feels like occasionally he will feel little more lightheaded after taking it. His Ganesh has been reviewed and is appropriate. Review of Systems: General: No recent weight changes, no fever, no sleep disturbances Respiratory: No cough, no shortness of air, no recurring pulmonary infections Cardiovascular/peripheral vascular: No chest pain, no palpitations, no edema, no shortness of breath Gastrointestinal: No new onset incontinence, normal bowel movements reported Genitourinary: No new onset incontinence Musculoskeletal: Low back pain, bilateral hip pain, left shoulder pain Psychiatric: [Normal mood/affect] Neurological: [Denies weakness in extremities], [denies balance issues] Objective:: Physical Exam: General: Alert and oriented x3, no acute distress, pleasant and cooperative Lungs: Respirations even and unlabored, symmetrical chest expansion Eyes: PERRL Musculoskeletal: Flexion and extension of lumbar [spine] somewhat guarded secondary to pain, [antalgic gait noted] point tenderness along bilateral SIs with positive bilateral Cristiano's, Ken's, Gaenslen's, compression and distraction exam Neurological: Speech clear, no gross sensory deficit FINAL REPORT CLINICAL HISTORY: LT SHOULDER PAIN FINDINGS: LEFT SHOULDER 3 views of the left shoulder were obtained. There is no acute fracture or dislocation. There is mild AC joint arthrosis. Visualized joint spaces are normally aligned. Soft tissues are unremarkable. IMPRESSION: No acute bony abnormality. Reviewed, Interpreted and Dictated by Easton Jacome III, MD Transcribed by Alisha Randle Authenticated and . [facility] Assessment:: Degenerative disc disease of lumbar spine with lumbar radiculopathy symptoms, lumbar facet arthropathy, lumbar spondylosis, bilateral sacroiliitis Plan:: Patient is experiencing worsening pain in and around his bilateral hips and low back. Patient did have limited range of motion of his lumbar spine with point tenderness along his bilateral SIs and a positive bilateral Cristiano's, Ken's, Gaenslen's, compression and distraction exam. I have discussed with the patient that he may benefit from bilateral SI injection. Risk and benefits were discussed with the patient and he would like to proceed forward with this plan of care. I will also order MRI without contrast of his left shoulder to rule out possible tear. Patient has tried and failed conservative therapy. I will refill the patient's pregabalin 150 mg 3 times a day and diclofenac 50 mg twice a day and provide a 1 month supply of this medication. Patient will be scheduled for bilateral SI injections under fluoroscopy. Patient has been instructed to contact the clinic with any concerns before the next appointment. Dr. Campos has reviewed this note and agrees with this plan of care. This note was dictated using voice recognition software and make contain errors or omissions. [facility] Disclaimer: The information contained in this section may have been updated after the patient was seen, as this information can be updated by other users. Medical History Prediabetes Seasonal allergies HTN (hypertension) HLD (hyperlipidemia) Surgical History H/O prostate biopsy Family History Other Diabetes Heart disease Hypertension Social History Smoking Status: Current every day smoker alcohol intake: never substance use type: denies use current occupational status: employed Travel in the last 8 weeks: None
== END 2023-05-17 23:59 | disposition home or self-care (01) ==
PROVIDERS: PCP Pediatrics; Visit Provider Nurse Practitioner Family
DX: M51.16 Intervertebral disc disorders with radiculopathy, lumbar region (principal); M47.26 Other spondylosis with radiculopathy, lumbar region; M46.1 Sacroiliitis, not elsewhere classified
CPT/HCPCS: 99212; G0463

== ENCOUNTER 2023-06-01 13:49 | Day surgery (SDC) | payer BC, SELFPAY ==
[2023-06-01 14:04] VITALS: BP 143/77; PULSE 75; RESP 16; TEMP 36.7; O2SAT 90; BMI 28.7
[2023-06-01] MEDS: LIDOCAINE 1% 5ML PF VIAL 5 ML (14:14)
[2023-06-01] MEDS: methylPREDNISolone ACETATE 80MG/ML VIAL 80 MG (14:14)
[2023-06-01] MEDS: BUPIVACAINE 0.25% 10ML INJ 25 MG IJ (14:14)
--- NOTE | 2023-06-01 14:16 | P.PCN_ITS ---
Procedure Date: 06/01/23 Time: 14:00 Anesthesiologist:: Albert Gibbs CRNA Complications:: None Pre-procedure Diagnosis:: Bilateral sacroiliitis Post-procedure Diagnosis:: Same. Indications for Procedure:: Patient is a very pleasant 67-year-old male who comes our clinic today for repeat bilateral sacroiliac joint injection. Patient has responded very well in terms of his low lumbar back pain off the midline bilaterally and posterior hip pain bilaterally. He rates his pain today 7/10. He describes pain as constant, dull, aching. He reports pain intensifies with ambulation and/or sitting for any length of time. Procedure Details:: Procedure: Bilateral sacroiliac joint injections under fluoroscopy Informed consent was obtained and the risks and benefits of the procedure were explained to the patient.~ The patient was taken to the procedure room and noninvasive monitors were placed including a noninvasive blood pressure cuff and pulse oximeter.~ The patient was placed prone on the procedure table. Both hips were cleansed using Betadine as a cleansing solution. C-arm fluoroscopy was used to view the right sacroiliac joint.~ The skin and subcutaneous tissues were anesthetized using lidocaine 1.5% and a 25-gauge needle.~ After this, a 22-gauge spinal needle was inserted under fluoroscopic guidance into the inferior aspect of the right sacroiliac joint.~ Omnipaque dye was injected and good spread was seen throughout the joint.~ After this, approximately 5 mL of bupivacaine, 0.25% and Depo-Medrol, 40 mg was incrementally injected into the right sacroiliac joint. We then moved to the left sacroiliac joint.~ The skin and subcutaneous tissues were anesthetized using lidocaine 1.5% and a 25-gauge needle.~ After this, a 22- gauge spinal needle was inserted under fluoroscopic guidance into the inferior aspect of the left sacroiliac joint.~ Omnipaque dye was injected and good spread was seen throughout the joint. After this, approximately 5 mL of bupivacaine, 0.25% and Depo-Medrol, 40 mg was incrementally injected into the left sacroiliac joint.~ The patient tolerated the procedure well with no complications. The patient was observed in the Pain Clinic and then was discharged home neurologically intact. Plan and Disposition:: Patient was discharged without incident.
[2023-06-01 14:17] VITALS: BP 129/63; PULSE 64; RESP 16; O2SAT 90
== END 2023-06-01 14:17 | disposition home or self-care (01) ==
PROVIDERS: PCP Pediatrics; Visit Provider Nurse Anesthetist, Certified Registered
DX: M46.1 Sacroiliitis, not elsewhere classified (principal)
CPT/HCPCS: 27096; G0260; J1010

== ENCOUNTER 2023-06-02 16:44 | Outpatient (CLI) | payer BC, SELFPAY ==
--- NOTE | 2023-06-02 17:11 | MR_ITS ---
PROCEDURE INFORMATION: Exam: MR Left Upper Extremity Joint Without Contrast; Shoulder Exam date and time: 06/02/2023 5:02 PM Age: 67 years old Clinical indication: Pain; Shoulder; Left; Additional info: Left shoulder pain TECHNIQUE: Imaging protocol: Magnetic resonance imaging of the left upper extremity without contrast. Exam focused on the shoulder. COMPARISON: CR XR SHOULDER LT MIN 2V 04/12/2023 9:26 AM FINDINGS: Bones/joints: Study limited by significant motion artifact in the single axial sequence. Minimal degenerative changes in the acromioclavicular joint. No other significant arthritic change. No significant joint fluid. Glenoid labrum: Mild signal abnormality in the anterior superior glenoid labrum suggesting small labral tear. Glenoid labrum otherwise appears unremarkable. Supraspinatus tendon: Increased signal intensity in the distal supraspinatus tendon compatible with mild tendinosis. No rosario tear. Infraspinatus tendon: Unremarkable. No evidence of tear. Subscapularis tendon: Unremarkable. No evidence of tear. Teres minor tendon: Unremarkable. No evidence of tear. Tendon of biceps brachii: Unremarkable. No evidence of tear. Glenohumeral ligaments: Unremarkable. Soft tissues: Unremarkable. IMPRESSION: 1. Mild supraspinatus tendinosis without rosario tear 2. Suspected mild tearing of the anterior superior glenoid labrum, suboptimally evaluated due to significant motion artifact in the axial sequence 3. Minimal degenerative changes in the acromioclavicular joint
== END 2023-06-02 23:59 | disposition home or self-care (01) ==
PROVIDERS: PCP Pediatrics; Visit Provider Nurse Practitioner Family
DX: M25.512 Pain in left shoulder (principal)
CPT/HCPCS: 73221

== ENCOUNTER 2023-06-16 13:39 | Outpatient (POV) | payer BC, SELFPAY ==
[2023-06-16 15:03] VITALS: BP 119/78; PULSE 79; RESP 16; O2SAT 95; BMI 28.7
--- NOTE | 2023-06-16 15:34 | A.OFFVIS_ITS ---
[facility] Pain Management SOAP Note Subjective:: Patient is a pleasant 67-year-old male who presents today for follow-up bilateral SI injections on 06/01/2023. Patient states that his pain is a 6 out of 10 and denies any new trauma or injury. He does state that these injections worked much better than the last months. He states he had at least 50 to 60% improvement and still has helping. He does state the pain is still there but it is more manageable and not as intense. Patient does state that he is scheduled to see a neurosurgeon coming up just to see his options. Patient is currently managed with diclofenac 50 mg twice a day and pregabalin 150 mg 3 times a day. He denies any side effects from this medication however states that if we can do any additional adjustment he feels like sometimes the medicine will wear out before the 8-hour belkis with the pregabalin. His Ganesh has been reviewed and is appropriate. Review of Systems: General: No recent weight changes, no fever, no sleep disturbances Respiratory: No cough, no shortness of air, no recurring pulmonary infections Cardiovascular/peripheral vascular: No chest pain, no palpitations, no edema, no shortness of breath Gastrointestinal: No new onset incontinence, normal bowel movements reported Genitourinary: No new onset incontinence Musculoskeletal: Low back pain Psychiatric: [Normal mood/affect] Neurological: [Denies weakness in extremities], [denies balance issues] Objective:: Physical Exam: General: Alert and oriented x3, no acute distress, pleasant and cooperative Lungs: Respirations even and unlabored, symmetrical chest expansion Eyes: PERRL Musculoskeletal: Flexion and extension of lumbar [spine] somewhat guarded secondary to pain, [antalgic gait noted] Neurological: Speech clear, no gross sensory deficit Assessment:: Degenerative disc disease of lumbar spine with lumbar radiculopathy symptoms, lumbar facet arthropathy, lumbar spondylosis, bilateral sacroiliitis Plan:: Patient has had significant improvement following these injections and does not need additional injection therapy at this time. I have discussed with the patient that I will increase his diclofenac to 75 mg twice a day and add an additional tablet of his pregabalin 150 mg 4 times a day and provide a 1 month supply of these medications. I did also discussed with patient in future that he may benefit from a spinal cord stimulator or pain pump trial in the future. Risk and benefits and educational handouts were given at today's visit. Patient will return to clinic in 1 month for reevaluation of symptoms and plan of care. Patient has been instructed to contact the clinic with any concerns before the next appointment. Dr. Campos has reviewed this note and agrees with this plan of care. This note was dictated using voice recognition software and make contain errors or omissions. [facility] Disclaimer: The information contained in this section may have been updated after the patient was seen, as this information can be updated by other users. Medical History Prediabetes Seasonal allergies HTN (hypertension) HLD (hyperlipidemia) Surgical History H/O prostate biopsy Family History Other Diabetes Heart disease Hypertension Social History Smoking Status: Current every day smoker alcohol intake: never substance use type: denies use current occupational status: employed Travel in the last 8 weeks: None
== END 2023-06-16 23:59 | disposition home or self-care (01) ==
PROVIDERS: PCP Pediatrics; Visit Provider Nurse Practitioner Family
DX: M51.16 Intervertebral disc disorders with radiculopathy, lumbar region (principal); M47.26 Other spondylosis with radiculopathy, lumbar region; M46.1 Sacroiliitis, not elsewhere classified
CPT/HCPCS: 99212; G0463

== ENCOUNTER 2023-07-21 14:23 | Outpatient (POV) | payer BC, SELFPAY ==
[2023-07-21 15:13] VITALS: BP 130/71; PULSE 65; RESP 16; O2SAT 95; BMI 28.7
--- NOTE | 2023-07-21 17:02 | EXP.PAIN.SOA ---
[facility] Pain Management SOAP Note Subjective:: Patient is a pleasant 67-year-old male who presents today for medication refill and follow-up. Today he rates his pain a 5 out of 10. Patient denies any new trauma or injury. He does state he continues to have worsening pain at his low back and states it is lower than what it has been previously. Patient states this is an aching, throbbing sensation and denies any radiating symptoms into his legs. He does state the pain is worse with increased activity or certain movements such as bending, twisting or lifting. Patient does state that he is interested in any help we may be able to provide. As it does interfere with his ability perform activities of daily living such as cooking and cleaning. He is currently managed with diclofenac 75 mg twice a day and pregabalin 150 mg 4 times a day. Patient states that this combination does seem to help overall. He states he is not as stiff as what he had been and it feels like it does help overall with this pain. Patient does state that the increased pregabalin he sometimes feels like that he does not have as good as focus. He states for that reason he has been very careful when he takes this medication. Patient does state that he did end up having a follow-up with Dr. Dixon and that they are still talking about possible fusion however when they discussed that there was the conversation that if they fuse [address] they may require additional surgery. He states that he really is not interested in this option and would like to try the conservative treatments first. He states that overall he feels like the combination of the diclofenac, pregabalin and injection therapy have been a good fit for him. His Ganesh has been reviewed and is appropriate. Review of Systems: General: No recent weight changes, no fever, no sleep disturbances Respiratory: No cough, no shortness of air, no recurring pulmonary infections Cardiovascular/peripheral vascular: No chest pain, no palpitations, no edema, no shortness of breath Gastrointestinal: No new onset incontinence, normal bowel movements reported Genitourinary: No new onset incontinence Musculoskeletal: Low back pain Psychiatric: [Normal mood/affect] Neurological: [Denies weakness in extremities], [denies balance issues] Objective:: Physical Exam: General: Alert and oriented x3, no acute distress, pleasant and cooperative Lungs: Respirations even and unlabored, symmetrical chest expansion Eyes: PERRL Musculoskeletal: Flexion and extension of lumbar [spine] somewhat guarded secondary to pain, [antalgic gait noted] positive Kemps test Neurological: Speech clear, no gross sensory deficit Assessment:: Degenerative disc disease of lumbar spine with lumbar radiculopathy symptoms, lumbar facet arthropathy, lumbar spondylosis, bilateral sacroiliitis Plan:: Patient is experiencing worsening pain in his low back with limited range of motion and a positive Kemps test. Patient did have more tenderness around the lower lumbar spine approximately L4-L5 and L5-S1. I have discussed with the patient that he may benefit from lumbar medial branch block at this location. Patient had previously had lumbar medial branch blocks back in July to September of 2022 that did provide 50% relief however has never had these injections at this levels. I did review over the risk and benefits and he would like to proceed forward with this plan of care. Patient has tried and failed conservative treatment including continued at home exercising and stretching between injections. I will refill the patient's pregabalin and diclofenac and provide a 1 month supply of these medications. Patient will be scheduled for lumbar medial branch block bilaterally L4-L5 and L5-S1 under fluoroscopy. Patient has been instructed to contact the clinic with any concerns before the next appointment. Dr. Campos has reviewed this note and agrees with this plan of care. This note was dictated using voice recognition software and make contain errors or omissions. [facility] Disclaimer: The information contained in this section may have been updated after the patient was seen, as this information can be updated by other users. Medical History Prediabetes Seasonal allergies HTN (hypertension) HLD (hyperlipidemia) Surgical History H/O prostate biopsy Family History Other Diabetes Heart disease Hypertension Social History Smoking Status: Current every day smoker alcohol intake: never substance use type: denies use current occupational status: other Travel in the last 8 weeks: None
== END 2023-07-21 23:59 | disposition home or self-care (01) ==
PROVIDERS: PCP Pediatrics; Visit Provider Nurse Practitioner Family
DX: M51.16 Intervertebral disc disorders with radiculopathy, lumbar region (principal); M47.26 Other spondylosis with radiculopathy, lumbar region; M46.1 Sacroiliitis, not elsewhere classified
CPT/HCPCS: 99212; G0463

== ENCOUNTER 2023-08-10 11:23 | Day surgery (SDC) | payer BC, SELFPAY ==
[2023-08-10 11:28] VITALS: BP 143/76; PULSE 68; RESP 18; TEMP 36.4; O2SAT 95; BMI 28.7
[2023-08-10 11:50] VITALS: BP 134/66; PULSE 62; RESP 18; O2SAT 96
[2023-08-10] MEDS: BUPIVACAINE 0.25% 10ML INJ 25 MG IJ (11:50)
[2023-08-10] MEDS: LIDOCAINE 1% 5ML PF VIAL 5 ML (11:50)
[2023-08-10] MEDS: methylPREDNISolone ACETATE 80MG/ML VIAL 80 MG (11:50)
--- NOTE | 2023-08-10 11:50 | P.PCN_ITS ---
Procedure Date: 08/10/23 Time: 11:45 Anesthesiologist:: Albert Gibbs CRNA Complications:: None Pre-procedure Diagnosis:: Degenerative disc lumbar spine multilevels. Lumbar radiculopathy. Lumbar spondylosis. Multilevel lumbar facet arthropathy. Post-procedure Diagnosis:: Same. Indications for Procedure:: Patient is a very pleasant 68-year-old male comes our clinic today for round 1 of medial branch block/facet injection lumbar L4-5, L5-S1 bilaterally. Patient describes low back pain as constant, dull, aching. Patient reports having difficulty with flexion, extension, left and right rotation. He rates his pain 7/10. Procedure Details:: Informed consent was obtained and the risk and benefits of the procedure was explained to the patient. Patient was taken to the procedure room where noninvasive monitors were placed, including noninvasive blood pressure cuff as well as pulse oximeter. The area over the lumbar spine was cleansed using chlorhexidine as a cleansing solution. I anesthetized the skin and subcutaneous tissues with 1% Lidocaine. I placed 22-gauge spinal needles into the facet joint/ medial branches of L4-L5, and L5-S1] bilaterally. Needle placement was confirmed with fluoroscopy. After confirmation of needle placement, each site was injected with 1 mL of 1% lidocaine and 0.25 % Marcaine and 10 mg of Depo- Medrol. A total of 80 mg of depo medrol was used for bilateral medial branch blocks of L4-L5, and L5-S1] bilaterally. Patient tolerated the procedure without difficulty. There were no complications. Plan and Disposition:: Patient was discharged without incident.
[2023-08-10 11:51] VITALS: BP 134/66; PULSE 66; RESP 18; O2SAT 96
[2023-08-10 11:55] VITALS: BP 130/72; PULSE 68; RESP 18; O2SAT 96
== END 2023-08-10 11:55 | disposition home or self-care (01) ==
PROVIDERS: PCP Pediatrics; Visit Provider Nurse Anesthetist, Certified Registered
DX: M47.816 Spondylosis without myelopathy or radiculopathy, lumbar region (principal)
CPT/HCPCS: 64493; 64494; J1010

== ENCOUNTER 2023-09-06 10:44 | Outpatient (POV) | payer BC, SELFPAY ==
[2023-09-06 10:45] VITALS: BP 146/83; PULSE 79; RESP 16; O2SAT 94; BMI 28.7
--- NOTE | 2023-09-06 11:03 | A.OFFVIS_ITS ---
[facility] Disclaimer: The information contained in this section may have been updated after the patient was seen, as this information can be updated by other users. Medical History Prediabetes Seasonal allergies HTN (hypertension) HLD (hyperlipidemia) Surgical History H/O prostate biopsy Family History Other Diabetes Heart disease Hypertension Social History Smoking Status: Current every day smoker alcohol intake: never substance use type: denies use current occupational status: other Travel in the last 8 weeks: None PM Subjective & Objective Subjective Subjective:: LumbarArti is a pleasant 68-year-old male who presents today for follow-up for medial branch block bilaterally L4-L5 and L5-S1 on 08/10/2023. Today he rates his pain a 6 out of 10. Patient does state that immediately after having the numbing medication injected from this procedure he at least had 80% improvement. He states he was driving on the way home was much easier and was able to get out of the car with less pain. He states that he was able to do more yard work and walk more because he did have overall improved function with these injections. He states the pain is a different type of pain now that it is more manageable and not as severe. He does feel like it is still helping however he does state that he really noticed the significant difference the first week. He does state that the improvement did decrease but is still doing well overall. Patient is managed with diclofenac 75 mg twice a day and pregabalin 150 mg 4 times a day. He feels like this is still working well and states he did just fill his prescription and does not believe he needs refills at this time. His Ganesh has been reviewed and is appropriate. Review of Systems: General: No recent weight changes, no fever, no sleep disturbances Respiratory: No cough, no shortness of air, no recurring pulmonary infections Cardiovascular/peripheral vascular: No chest pain, no palpitations, no edema, no shortness of breath Gastrointestinal: No new onset incontinence, normal bowel movements reported Genitourinary: No new onset incontinence Musculoskeletal: Low back pain Psychiatric: [Normal mood/affect] Neurological: [Denies weakness in extremities], [denies balance issues] Pain at rest (0-10 scale): 6 Objective Objective:: Physical Exam: General: Alert and oriented x3, no acute distress, pleasant and cooperative Lungs: Respirations even and unlabored, symmetrical chest expansion Eyes: PERRL Musculoskeletal: Flexion and extension of lumbar [spine] somewhat guarded secondary to pain, [antalgic gait noted] Neurological: Speech clear, no gross sensory deficit Has patient had previous pain injection?: Yes Percent improvement in pain since last injection: 80% Conservative treatment options previously tried: Home exercise plan Length of treatment: Longer than 6 weeks and Prescription medications Length of treatment: Longer than 6 weeks Meds Home Medications and Allergies Home Medications ?Medication ?Instructions ?Recorded ?Confirmed ?Type cetirizine 10 mg tablet 10 mg PO DAILY ALLERGIES 07/01/22 09/06/23 History hydrochlorothiazide 25 mg tablet 25 mg PO DAILY Fluid 07/01/22 09/06/23 History losartan 100 mg tablet 100 mg PO DAILY BLOOD PRESSURE 07/01/22 09/06/23 History omeprazole 20 mg capsule,delayed 20 mg PO DAILY GERD 07/01/22 09/06/23 History release gabapentin 300 mg capsule 300 mg PO QID #120 caps 02/12/23 09/06/23 Rx gabapentin 300 mg capsule 300 mg PO QID #120 caps 03/08/23 09/06/23 Rx diclofenac sodium 75 mg 75 mg PO BID #60 tabs 08/23/23 09/06/23 Rx tablet,delayed release pregabalin 150 mg capsule (Lyrica) 150 mg PO QID #120 caps 08/23/23 09/06/23 Rx New Prescriptions to Start Prescriptions: Allergies Allergy/AdvReac Type Severity Reaction Status Date / Time No Known Allergies Allergy Verified 09/06/23 10:51 Assessment and Plan *Assessment and plan (1) Lumbar spondylosis: Status: Acute Category: Medical Code(s): M47.816 - Spondylosis without myelopathy or radiculopathy, lumbar region (2) Facet hypertrophy of lumbar region: Status: Acute Category: Medical Code(s): M47.816 - Spondylosis without myelopathy or radiculopathy, lumbar region (3) Degenerative disc disease, lumbar: Status: Acute Category: Medical Code(s): M51.36 - Other intervertebral disc degeneration, lumbar region Plan Patient has had significant improvement following these injections and does not require any additional injection therapy at this time. Patient will return to clinic in 1 month for reevaluation of symptoms and plan of care. Patient has been instructed to contact the clinic with any concerns before the next appointment. Dr. Campos has reviewed this note and agrees with this plan of care. This note was dictated using voice recognition software and make contain errors or omissions. All injections are used with Lidocaine or Bupivacaine and Depo Medrol.
== END 2023-09-06 23:59 | disposition home or self-care (01) ==
LOC: SC.PAIN 10:44
PROVIDERS: PCP Pediatrics; Visit Provider Nurse Practitioner Family
DX: M47.816 Spondylosis without myelopathy or radiculopathy, lumbar region (principal); M51.36 Other intervertebral disc degeneration, lumbar region
CPT/HCPCS: 99212; G0463

== ENCOUNTER 2023-12-01 09:22 | Outpatient (POV) | payer BC, SELFPAY ==
[2023-12-01 09:53] VITALS: BP 149/79; PULSE 82; RESP 16; O2SAT 96; BMI 28.7
--- NOTE | 2023-12-01 10:22 | A.OFFVIS_ITS ---
[facility] Disclaimer: The information contained in this section may have been updated after the patient was seen, as this information can be updated by other users. Medical History Prediabetes Seasonal allergies HTN (hypertension) HLD (hyperlipidemia) Surgical History H/O prostate biopsy Family History Other Diabetes Heart disease Hypertension Social History Smoking Status: Current every day smoker alcohol intake: never substance use type: denies use current occupational status: other Travel in the last 8 weeks: None PM Subjective & Objective Subjective Subjective:: patient is a pleasant 68-year-old male who presents today for follow-up. He rates his pain today as 6 out of 10. He denies any new trauma or injury. Patient did previously have a lumbar medial branch block back in August that did really well and states that he still feels like it is still helping some and that it is still manageable. Patient is currently managed with diclofenac 75 mg twice a day and pregabalin 150 mg 4 times a day. He denies any side effects from this medication. His Ganesh has been reviewed and is appropriate. Review of Systems: General: No recent weight changes, no fever, no sleep disturbances Respiratory: No cough, no shortness of air, no recurring pulmonary infections Cardiovascular/peripheral vascular: No chest pain, no palpitations, no edema, no shortness of breath Gastrointestinal: No new onset incontinence, normal bowel movements reported Genitourinary: No new onset incontinence Musculoskeletal: Low back pain Psychiatric: [Normal mood/affect] Neurological: [Denies weakness in extremities], [denies balance issues] Pain at rest (0-10 scale): 6 Objective Objective:: Physical Exam: General: Alert and oriented x3, no acute distress, pleasant and cooperative Lungs: Respirations even and unlabored, symmetrical chest expansion Eyes: PERRL Musculoskeletal: Flexion and extension of lumbar [spine] somewhat guarded secondary to pain, [antalgic gait noted] Neurological: Speech clear, no gross sensory deficit Has patient had previous pain injection?: No Conservative treatment options previously tried: Home exercise plan Length of treatment: Longer than 6 weeks Meds Home Medications and Allergies Home Medications ?Medication ?Instructions ?Recorded ?Confirmed ?Type cetirizine 10 mg tablet 10 mg PO DAILY ALLERGIES 07/01/22 12/01/23 History hydrochlorothiazide 25 mg tablet 25 mg PO DAILY Fluid 07/01/22 12/01/23 History losartan 100 mg tablet 100 mg PO DAILY BLOOD PRESSURE 07/01/22 12/01/23 History omeprazole 20 mg capsule,delayed 20 mg PO DAILY GERD 07/01/22 12/01/23 History release gabapentin 300 mg capsule 300 mg PO QID #120 caps 02/12/23 12/01/23 Rx gabapentin 300 mg capsule 300 mg PO QID #120 caps 03/08/23 12/01/23 Rx diclofenac sodium 75 mg 75 mg PO BID #60 tabs 08/23/23 12/01/23 Rx tablet,delayed release pregabalin 150 mg capsule (Lyrica) 150 mg PO QID #120 caps 08/23/23 12/01/23 Rx New Prescriptions to Start Prescriptions: Allergies Allergy/AdvReac Type Severity Reaction Status Date / Time No Known Allergies Allergy Verified 09/06/23 10:51 Assessment and Plan *Assessment and plan (1) Lumbar spondylosis: Status: Acute Category: Medical Code(s): M47.816 - Spondylosis without myelopathy or radiculopathy, lumbar region (2) Facet hypertrophy of lumbar region: Status: Acute Category: Medical Code(s): M47.816 - Spondylosis without myelopathy or radiculopathy, lumbar region (3) Degenerative disc disease, lumbar: Status: Acute Category: Medical Code(s): M51.36 - Other intervertebral disc degeneration, lumbar region Plan We will refill the patient's pregabalin and diclofenac and provide a 3-month supply of this medication. Patient will return to clinic in 3 months for reevaluation of symptoms and plan of care. Patient has been instructed to contact the clinic with any concerns before the next appointment. Dr. Campos has reviewed this note and agrees with this plan of care. This note was dictated using voice recognition software and make contain errors or omissions. All injections are used with Lidocaine or Bupivacaine and Depo Medrol.
== END 2023-12-01 23:59 | disposition home or self-care (01) ==
PROVIDERS: PCP Pediatrics; Visit Provider Nurse Practitioner Family
DX: M47.816 Spondylosis without myelopathy or radiculopathy, lumbar region (principal); M51.369 Other intervertebral disc degeneration, lumbar region without mention of lumbar back pain or lower extremity pain; F17.210 Nicotine dependence, cigarettes, uncomplicated
CPT/HCPCS: 99212; G0463

== ENCOUNTER 2024-04-19 11:40 | Outpatient (POV) | payer BC, SELFPAY ==
[2024-04-19 11:49] VITALS: BP 138/72; PULSE 67; RESP 14; O2SAT 97; BMI 27.9
--- NOTE | 2024-04-19 12:19 | A.OFFVIS_ITS ---
[facility] Disclaimer: The information contained in this section may have been updated after the patient was seen, as this information can be updated by other users. Medical History (Updated 04/19/24 @ 12:22 by Yuli Hyatt APRN) Prediabetes Seasonal allergies HTN (hypertension) HLD (hyperlipidemia) Surgical History H/O prostate biopsy Family History Other Diabetes Heart disease Hypertension Social History Smoking Status: Current every day smoker alcohol intake: never substance use type: denies use current occupational status: other Travel in the last 8 weeks: None PM Subjective & Objective Subjective Subjective:: Patient is a pleasant 68-year-old male who presents today for worsening pain. Today he rates his pain a 5 out of 10. Patient does state from our last visit he did undergo back surgery with a lumbar fusion on December [address] Dixon. He states that this did get some additional improvement in his overall symptoms however he does feel like it may have aggravated some symptoms most prominent on the right side into his right hip and will occasionally go into his left side. He describes it as a aching sensation that will limit his ability perform activities of daily living such as cooking and cleaning. He states that it is very bothersome and he is interested in possible injections. Patient denies any new falls or injuries. He has continued oral medication, heat and ice, topicals, at home stretching exercise for longer than 12 weeks. Patient does state that he is scheduled for his follow-up with his surgeon in July. Patient is managed with diclofenac 75 mg twice daily and pregabalin to 150 mg 4 times a day from our office. He denies any side effects. He does state that he only takes the diclofenac every once in a while. He states that the pregabalin does significantly help and is requesting a refill. His Ganesh has been reviewed and is appropriate. Review of Systems: General: No recent weight changes, no fever, no sleep disturbances Respiratory: No cough, no shortness of air, no recurring pulmonary infections Cardiovascular/peripheral vascular: No chest pain, no palpitations, no edema, no shortness of breath Gastrointestinal: No new onset incontinence, normal bowel movements reported Genitourinary: No new onset incontinence Musculoskeletal: Low back pain, bilateral hip pain Psychiatric: [Normal mood/affect] Neurological: [Denies weakness in extremities], [denies balance issues] Pain at rest (0-10 scale): 5 Objective Objective:: Physical Exam: General: Alert and oriented x3, no acute distress, pleasant and cooperative Lungs: Respirations even and unlabored, symmetrical chest expansion Eyes: PERRL Musculoskeletal: Flexion and extension of lumbar [spine] somewhat guarded secondary to pain, [antalgic gait noted] point tenderness along bilateral SIs with positive bilateral Cristiano's, Ken's, Gaenslen's, compression and distraction exam Neurological: Speech clear, no gross sensory deficit Has patient had previous pain injection?: No Conservative treatment options previously tried: Home exercise plan Length of treatment: Longer than 12 weeks Meds Home Medications and Allergies Home Medications ?Medication ?Instructions ?Recorded ?Confirmed ?Type cetirizine 10 mg tablet 10 mg PO DAILY ALLERGIES 07/01/22 04/19/24 History hydrochlorothiazide 25 mg tablet 25 mg PO DAILY Fluid 07/01/22 04/19/24 History losartan 100 mg tablet 100 mg PO DAILY BLOOD PRESSURE 07/01/22 04/19/24 History omeprazole 20 mg capsule,delayed 20 mg PO DAILY GERD 07/01/22 04/19/24 History release gabapentin 300 mg capsule 300 mg PO QID #120 caps 02/12/23 04/19/24 Rx gabapentin 300 mg capsule 300 mg PO QID #120 caps 03/08/23 04/19/24 Rx diclofenac sodium 75 mg 75 mg PO BID #60 tabs 12/01/23 04/19/24 Rx tablet,delayed release pregabalin 150 mg capsule (Lyrica) 150 mg PO QID #120 caps 12/01/23 04/19/24 Rx New Prescriptions to Start Prescriptions: Allergies Allergy/AdvReac Type Severity Reaction Status Date / Time No Known Allergies Allergy Verified 09/06/23 10:51 Assessment and Plan *Assessment and plan (1) Low back pain: Status: Acute Category: Medical Code(s): M54.50 - Low back pain, unspecified (2) Lumbar spondylosis: Status: Acute Category: Medical Code(s): M47.816 - Spondylosis without myelopathy or radiculopathy, lumbar region (3) Bilateral sacroiliitis: Status: Acute Category: Medical Code(s): M46.1 - Sacroiliitis, not elsewhere classified Plan Patient is experiencing worsening pain along the low back and bilateral hips. They did have limited range of motion of the lumbar spine along with point tenderness along bilateral SI joints and a positive bilateral Cristiano's, Ken's, Gaenslen's, compression and distraction exam. I did discuss with the patient that I do believe they would benefit from bilateral SI injections. Risk and benefits were discussed with the patient and they would like to proceed forward with this option. Patient has tried and failed conservative therapy including continued at home stretching exercise for longer than 12 weeks. Patient has had longstanding sacroiliitis in the past that has gone on for longer than a year. His last SI injections were June 01, 2023. Patient did have 80% improvement initially that did go down to about 60% at the 2-week belkis. He states that those injections really did decrease the severity and frequency of that pain and that he has not really had any issues since those last injections up until after surgery. I will refill the patient's pregabalin and diclofenac. Patient will be scheduled for bilateral SI injections under fluoroscopy. Patient has been instructed to contact the clinic with any concerns before the next appointment. Dr. Campos has reviewed this note and agrees with this plan of care. This note was dictated using voice recognition software and make contain errors or omissions. All injections are used with Lidocaine or Bupivacaine and Depo Medrol.
== END 2024-04-19 23:59 | disposition home or self-care (01) ==
PROVIDERS: PCP Pediatrics; Visit Provider Nurse Practitioner Family
DX: M54.50 Low back pain, unspecified (principal); M47.816 Spondylosis without myelopathy or radiculopathy, lumbar region; M46.1 Sacroiliitis, not elsewhere classified; F17.210 Nicotine dependence, cigarettes, uncomplicated; Z73.89 Other problems related to life management difficulty
CPT/HCPCS: 99212; G0463

== ENCOUNTER 2024-05-16 08:30 | Day surgery (SDC) | payer BC, SELFPAY ==
[2024-05-16 08:32] VITALS: BP 123/64; PULSE 81; RESP 16; TEMP 37; O2SAT 97; BMI 28.7
[2024-05-16 09:02] VITALS: BP 119/50; PULSE 78; RESP 18; O2SAT 95
[2024-05-16] MEDS: LIDOCAINE 1% 5ML PF VIAL 5 ML (09:02)
[2024-05-16] MEDS: BUPIVACAINE 0.25% 10ML INJ 25 MG IJ (09:02)
[2024-05-16] MEDS: methylPREDNISolone ACETATE 80MG/ML VIAL 80 MG (09:02)
[2024-05-16 09:08] VITALS: BP 119/50; PULSE 78; RESP 18; O2SAT 95
[2024-05-16 09:12] VITALS: BP 120/82; PULSE 81; RESP 17; TEMP 37; O2SAT 96
--- NOTE | 2024-05-16 12:51 | P.PCN_ITS ---
Procedure Date: 05/16/24 Time: 08:40 Anesthesiologist:: Albert Gibbs CRNA Complications:: None Pre-procedure Diagnosis:: Bilateral sacroiliitis Post-procedure Diagnosis:: Same Indications for Procedure:: Patient is a very pleasant 68-year-old male who comes our clinic today for bilateral sacroiliac joint injections cortisone local anesthetic. Patient describes low lumbar back pain off the midline bilaterally. Bilateral posterior hip pain. Difficulty transitioning from sitting to standing. He rates his pain 7/10. Procedure Details:: Procedure: Bilateral sacroiliac joint injections under fluoroscopy Informed consent was obtained and the risks and benefits of the procedure were explained to the patient.~ The patient was taken to the procedure room and noninvasive monitors were placed including a noninvasive blood pressure cuff and pulse oximeter.~ The patient was placed prone on the procedure table. Both hips were cleansed using Betadine as a cleansing solution. C-arm fluoroscopy was used to view the right sacroiliac joint.~ The skin and subcutaneous tissues were anesthetized using lidocaine 1.5% and a 25-gauge needle.~ After this, a 22-gauge spinal needle was inserted under fluoroscopic guidance into the inferior aspect of the right sacroiliac joint.~ Omnipaque dye was injected and good spread was seen throughout the joint.~ After this, approximately 5 mL of bupivacaine, 0.25% and Depo-Medrol, 40 mg was incrementally injected into the right sacroiliac joint. We then moved to the left sacroiliac joint.~ The skin and subcutaneous tissues were anesthetized using lidocaine 1.5% and a 25-gauge needle.~ After this, a 22- gauge spinal needle was inserted under fluoroscopic guidance into the inferior aspect of the left sacroiliac joint.~ Omnipaque dye was injected and good spread was seen throughout the joint. After this, approximately 5 mL of bupivacaine, 0.25% and Depo-Medrol, 40 mg was incrementally injected into the left sacroiliac joint.~ The patient tolerated the procedure well with no complications. The patient was observed in the Pain Clinic and then was discharged home neurologically intact. Plan and Disposition:: Patient was discharged without incident.
== END 2024-05-16 09:12 | disposition home or self-care (01) ==
LOC: SC.PAINP 08:31
PROVIDERS: PCP Pediatrics; Visit Provider Nurse Anesthetist, Certified Registered
DX: M46.1 Sacroiliitis, not elsewhere classified (principal)
CPT/HCPCS: 27096; G0260; J1010

== ENCOUNTER 2024-05-30 08:45 | Outpatient (POV) | payer BC, SELFPAY ==
--- OUTSIDE RECORDS SUMMARY | 2024-05-30 08:47 | XMS_ITS | Data Portability ---
Author Organization [facility] ADMIN Address [address] [place] [id number] Assessment No assessment recorded. Plan of Treatment Reminders Order Date Submit Date Provider Last Modified By Organization Details Last Modified Time Details Appointments None record ed. Lab None record ed. Referral None record ed. Procedures None record ed. Surgeries None record ed. Imaging None record ed. Medication Orders None record ed. Patient TargetsNo targets recorded. Patient InstructionsNo instructions recorded. Reason for Referral None Reported. Results Created Date Observation Date Name Description Value Unit Range Abnormal Flag Note LastModifiedBy Organization Detail LastModifiedTime Result Notes None recorded. Procedures Surgical History Date Name Laterality Status Provider Name and Address Organization Details Recorded Time 2 Punch Biopsy completed Mary Gibbs MD [facility], [place], [address], [facility] & [place] 12/24/2021 14:38:14 Imaging Results None recorded. Procedure Notes None recorded. Medical Equipment None Reported. Allergies No known drug allergies Medications Name Sig Start Date Stop Date Status Note LastModified by Organization Details LastModified Time omeprazole 10 mg capsule,delayed release active Not Available Not Available Not Available zinc 60 mg tablet active Not Available Not Available Not Available hydrochlorothiaz elizabeth 25 mg tablet active Not Available Not Avail able Not Available losartan 100 mg tablet TAKE 1 TABLET BY MOUTH ONCE DAILY active Not Available Not Available No t Available rosuvastatin 10 mg tablet active Not Available Not Available No t Available quercetin 500 mg capsule active Not Available Not Available Not Available Vitals Date Recorded Body height Body mass index (BMI) Body weight Body temperature Heart rate Systolic blood pressure Diastolic blood pressure Provider Name and Address Organization Details Last Updated DateTime 2 177.8 cm 24.4 kg/m2 51556.7 g 97.3 [degF] 86 /min 121 mm[Hg] 71 mm[Hg] Arminda Campoverde [place] - [facility] & [place] 10:22:32 Social History Question Answer Notes LastModified by Organizat ion Details LastModified Time Tobacco Smoking Status Current Every Day Smoker Arminda Campoverde null, FRANC - [facility] & [place] 12/24/2021 10:08:07 Do You Have An Advance Directive? No Information not available 12/24/2021 What Is Your Level Of Alcohol Consumption? None Information not available 12/24/2021 Are You Blind Or Do You Have Difficulty Seeing? No Information not available 12/24/2021 What Was The Date Of Your Most Recent Tobacco Screening? 12/24/2021 Information not available 12/24/2021 Are You Passively Exposed To Smoke? Yes Information no t available 12/24/2021 Do You Or Have You Ever Used Smokeless Tobacco? Never Used Smokeless Tobacco Information not available 12/24/2021 How Much Tobacco Do You Smoke? 1 PPD Information not available 12/24/2021 Do You Feel Stressed (tense, Restless, Nervous, Or Anxious, Or Unable To Sleep At Night)? [id number] Information not available 12/24/2021 Do You Use Any Illicit Or Recreational Drugs? No Information not available 12/24/2021 How Many Years Have You Smoked Tobacco? 50 Information not available 12/24/2021 Sex: Unknown Functional Status Question Answer Note LastModified by Organization D etails LastModified Time What is your exercise level? Moderate Information not available 12/24/2021 Mental Status None recorded. Family History Nothing Reported. Medical History Condition Response Acid Reflux (GERD) Y Hyperlipidemia Y Back Problems Y Reflux/GERD Y Hypertension Y High Cholesterol Y Past Encounters Encounter ID Performer Location Encounter Start Date Encounter Closed Date Diagnosis/Indication Diagnosis SNOMED-CT Code Diagnosis ICD10 Code Diagnosis Note [id number] Mary Gibbs MD [facility] [id number] [facility], [facility] [address] 12/24/2021 10:00:18 12/24/2021 11:12:55 Lesion of skin of left ear [id number] H93.8X2 Biopsy taken in office today. Suspicious for skin cancer. I will be in touch with the patient as soon as we get the pathology results. Sooner if needed. Otalgia of left ear 1010 288906 H92.02 Health Concerns Section Related Observation LastModified by Organization Detai ls LastModified Time None Recorded Concern Status LastModified by Organization Details LastModified Time None Recorded Advance Directives Directive N: Payers Encounter Date Sequence Insurance Name Policy Number Policy Miller Covered Member ID Miller Member ID Guarantor Name 12/24/2021 1 [place]: JEFF GARC[employer] [id number] Ousmane Damian [id number] Ousmane Damian
--- NOTE | 2024-05-30 08:48 | EXP.PAIN.SOA ---
[facility] Disclaimer: The information contained in this section may have been updated after the patient was seen, as this information can be updated by other users. Medical History (Updated 05/30/24 @ 08:58 by Yuli Hyatt APRN) Prediabetes Seasonal allergies HTN (hypertension) HLD (hyperlipidemia) Surgical History H/O prostate biopsy Family History Other Diabetes Heart disease Hypertension Social History Smoking Status: Current every day smoker alcohol intake: never substance use type: denies use current occupational status: other Travel in the last 8 weeks: None PM Subjective & Objective Subjective Subjective:: Patient is a pleasant 68-year-old male who presents today for follow-up of of bilateral SI injections on 05/16/2024. Today he rates his pain a 4 out of 10. He denies any new injuries or falls. Patient does state he did have approximately 75-80 percent improvement following this injection. He states that some of the pain that he has been experiencing has completely disappeared. He does state that he does still have some issues more so on the right hip that can be tender to touch but it is not constant and it does very when it is more bothersome. Patient is currently managed with diclofenac 75 mg twice a day and pregabalin 150 mg 4 times a day from our office. He denies any side effects. He is also prescribed compounded cream. His Ganesh has been reviewed and is appropriate. Review of Systems: General: No recent weight changes, no fever, no sleep disturbances Respiratory: No cough, no shortness of air, no recurring pulmonary infections Cardiovascular/peripheral vascular: No chest pain, no palpitations, no edema, no shortness of breath Gastrointestinal: No new onset incontinence, normal bowel movements reported Genitourinary: No new onset incontinence Musculoskeletal: Low back pain Psychiatric: [Normal mood/affect] Neurological: [Denies weakness in extremities], [denies balance issues] Pain at rest (0-10 scale): 4 Objective Objective:: Physical Exam: General: Alert and oriented x3, no acute distress, pleasant and cooperative Lungs: Respirations even and unlabored, symmetrical chest expansion Eyes: PERRL Musculoskeletal: Flexion and extension of lumbar [spine] somewhat guarded secondary to pain, [antalgic gait noted] point tenderness along right greater trochanteric bursa Neurological: Speech clear, no gross sensory deficit Has patient had previous pain injection?: Yes Percent improvement in pain since last injection: 75 to 80% Conservative treatment options previously tried: Home exercise plan Length of treatment: Longer than 12 weeks Meds Home Medications and Allergies Home Medications ?Medication ?Instructions ?Recorded ?Confirmed ?Type cetirizine 10 mg tablet 10 mg PO DAILY ALLERGIES 07/01/22 05/30/24 History hydrochlorothiazide 25 mg tablet 25 mg PO DAILY Fluid 07/01/22 05/30/24 History losartan 100 mg tablet 100 mg PO DAILY BLOOD PRESSURE 07/01/22 05/30/24 History omeprazole 20 mg capsule,delayed 20 mg PO DAILY GERD 07/01/22 05/30/24 History release gabapentin 300 mg capsule 300 mg PO QID #120 caps 02/12/23 05/30/24 Rx gabapentin 300 mg capsule 300 mg PO QID #120 caps 03/08/23 05/30/24 Rx diclofenac sodium 75 mg 75 mg PO BID #60 tabs 04/19/24 05/30/24 Rx tablet,delayed release pregabalin 150 mg capsule (Lyrica) 150 mg PO QID #120 caps 04/19/24 05/30/24 Rx New Prescriptions to Start Prescriptions: Allergies Allergy/AdvReac Type Severity Reaction Status Date / Time No Known Allergies Allergy Verified 05/16/24 08:33 Assessment and Plan *Assessment and plan (1) Bilateral sacroiliitis: Status: Acute Category: Medical Code(s): M46.1 - Sacroiliitis, not elsewhere classified (2) Low back pain: Status: Acute Category: Medical Code(s): M54.50 - Low back pain, unspecified (3) Degenerative disc disease, lumbar: Status: Acute Category: Medical Code(s): M51.369 - Other intervertebral disc degeneration, lumbar region without mention of lumbar back pain or lower extremity pain (4) Myofascial pain: Status: Acute Category: Medical Code(s): M79.18 - Myalgia, other site Plan Patient has had significant treatment following his SI injections and does not require any additional injection therapy at this time. Patient was counseled that if his pain does become more consistent along that right hip that we could possibly do trigger point injections of this area. We will continue to monitor this. I will also make sure he does have refills of his diclofenac and pregabalin. Patient was also counseled to try his compounded cream on the right hip and see if that helps as well. Patient has been instructed to contact the clinic with any concerns before the next appointment. Dr. Campos has reviewed this note and agrees with this plan of care. This note was dictated using voice recognition software and make contain errors or omissions. All injections are used with Lidocaine, Bupivacaine and Depo Medrol. Occasionally urine drug screen is needed to verify patient's compliance with our office pain contract. This is ordered based off specific treatments related to chronic pain with the potential to abuse certain medications.
[2024-05-30 08:55] VITALS: BP 140/77; PULSE 67; RESP 14; O2SAT 100; BMI 27.9
== END 2024-05-30 23:59 | disposition home or self-care (01) ==
PROVIDERS: PCP Pediatrics; Visit Provider Nurse Practitioner Family
DX: M46.1 Sacroiliitis, not elsewhere classified (principal); M54.50 Low back pain, unspecified; M51.369 Other intervertebral disc degeneration, lumbar region without mention of lumbar back pain or lower extremity pain; M79.18 Myalgia, other site; F17.200 Nicotine dependence, unspecified, uncomplicated
CPT/HCPCS: 99212; G0463

== ENCOUNTER 2024-07-12 09:02 | Outpatient (POV) | payer BC, SELFPAY ==
--- OUTSIDE RECORDS SUMMARY | 2024-07-12 09:05 | XMS_ITS | Data Portability ---
Author Organization [facility] ADMIN Address [address] [place] [address] Assessment No assessment recorded. Plan of Treatment [...] 2 Punch Biopsy completed Mary Gibbs MD [facility], [place], [address], [facility] & [place] 12/24/2021 14:38:14 Imaging Results None recorded. Procedure [...] Updated DateTime 2 177.8 cm 24.4 kg/m2 09358.7 g 97.3 [degF] 86 /min 121 mm[Hg] 71 mm[Hg] Arminda BRUNER - LPNT [facility] & [place] 10:22:32 Social History Question Answer Notes LastModified by Organizat ion Details LastModified Time Tobacco Smoking Status Current Every Day Smoker Arminda Campoverde null, FRANC - LPNT [facility] & [place] 12/24/2021 10:08:07 Do You Have An Advance Directive? No Information not available 12/24/2021 Are You Blind Or Do You Have Difficulty Seeing? No Information not available 12/24/2021 What Was The Date Of Your Most Recent Tobacco Screening? 12/24/2021 Information not available 12/24/2021 Are You Passively Exposed To Smoke? Yes Information not available 12/24/2021 How Much Tobacco Do You Smoke? 1 PPD Information not available 12/24/2021 How Many Years Have You Smoked Tobacco? 50 Information not available 12/24/2021 Sex: Unknown Functional Status Question Answer Note LastModified by Organizat ion Details LastModified Time Do you use any illicit or recreational drugs? No Information not available 12/24/2021 What is your level of alcohol consumption? None Information not available 12/24/2021 Do you or have you ever used smokeless tobacco? Never used smokeless tobacco Information not available 12/24/2021 What is your exercise level? Moderate Information not available 12/24/2021 Mental Status Question Answer Note LastModified by Organization D etails LastModified Time Do you feel stressed (tense, restless, nervous, or anxious, or unable to sleep at night)? [id number] Information not available 12/24/2021 Family History Nothing Reported. Medical History Condition Response Acid Reflux (GERD) Y Hyperlipidemia Y Back Problems Y Reflux/GERD Y Hypertension Y High Cholesterol Y Past Encounters Encounter ID Performer Location Encounter Start Date Encounter Closed Date Diagnosis/Indication Diagnosis SNOMED-CT Code Diagnosis ICD10 Code Diagnosis Note [id number] aMry Gibbs MD [facility] [id number] [facility] [address] 12/24/2021 10:00:18 12/24/2021 11:12:55 Lesion of skin of left ear [id number] H93.8X2 Biopsy taken in office today. Suspicious for skin cancer. I will be in touch with the patient as soon as we get the pathology results. Sooner if needed. Otalgia of left ear 1010 890054 H92.02 Health Concerns Section Related Observation LastModified by Organization Detai ls LastModified Time None Recorded Concern Status LastModified by Organization Details LastModified Time None Recorded Advance Directives Directive N: Payers Insurance Date Sequence Insurance Name Policy Number Policy Miller Covered Member ID Miller Member ID Guarantor Name 12/31/2021 1 [place] [id number] Ousmane Damian [id number] Ousmane Damian
--- OUTSIDE RECORDS SUMMARY | 2024-07-12 09:05 | XMS_ITS | Data Portability ---
Author Organization [facility]AVE [facility]OS[facility] Address [address] [facility] [address] [place] [address] Care Team Providers Care Flight Operations Specialist Name Role Phone CHRIS MELVI Primary Care Provider VIKY VILLALOBOS Chief Engineer Assessment Encounter Date Assessment Date Assessment LastModified by Organization Details LastModified Time 01/17/2024 01/17/2024 Mr. Scanlon presents today status post L3-L4 and L4-L5 PLIF 12/28. Huson removed with no issues or concerns. All questions answered. [email or web address] Not available 01/17/2024 14:53:58 02/17/2024 02/17/2024 Mr. Scanlon is a 68-year-old gentleman status post L3-4 and L4-5 posterior lumbar interbody fusion. His x-rays today look good, and I gave him a printed copy. I encouraged him to walk is much as possible. He will continue to use his lumbar support orthotic for another 2 weeks, then wean out of it. I encouraged him to put it on during any more strenuous activity. He is ask if we could provide a letter giving him the option to work at home, as he does find the commutes irritate his back. I told him I am supportive of this, but also encouraged him to get into the office when possible for the social aspect. I plan to see him back in 3 months with repeat x-rays of the lumbar spine to monitor his progress. Not available 02/17/2024 13:42:15 07/10/2024 07/10/2024 Mr. Scanlon is a 68-year-old gentleman status post L3-L5 fusion. His x-rays today look great. He does have significant spondylosis above his fusion, at L2-3. We discussed the option of performing a minimally invasive lateral approach to this if this is in fact where his pain is coming from. However, I do not think it correlates well as he describes more of an L4 distribution. I think the safest thing to do at this point is to update an MRI of his lumbar spine and make sure there is been no significant changes. I do think his x-rays today show no issue, and the L3-L5 levels are fine. Not available 07/10/2024 11:57:35 Plan of Treatment Reminders Order Date Submit Date Provider Last Modified By Organization Details Last Modified Time Details Appointments RECHECK 2024 02:15P M ERICK CERVANTES MD Not available Not available Not available FOLLOW UP DAK 2024 07:50A M VIKY CHI MD Not available Not available Not available Lab surgical pathology study 2024 025 [facility], [address] [place] [address], [phone], 05/29/2024 12:05:01 Referral None recorded. Procedures None recorded. Surgeries None recorded. Imaging None recorded. Medication Orders None recorded. Patient TargetsNo targets recorded. Patient Instructions Encounter Date Encounter Id Patient Instructions Last Modified By Organization Details Last Modified Time 05/25/2024 [id number] Recommended returning to clinic in 6 months for FBSE Not available 05/25/2024 08:06:42 Reason for Referral None Reported. 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 AJCC: T1, Nx, Mx SOURC E OF SPECI MEN: SKIN, R MEDIA L TEMPL E CLINI JUD INFOR MATIO N: R/O: BCC. MOHS IF POSIT ERICKA. Gross Descr iptio n: The speci men consi sted of a singl e kincaid fragm ent which measu red 5 x 3 x 1 mm. All is submi tted in toto in one casse tte. Micro scopi c Descr iptio n: Nests and aggre woods of immat ure basal oid epith elial cells with perip heral palis ading are prese nt in the dermi s. KEILA RUIZ MD Patricia d Out Date: 05/29 12:04 1 Not Available [facility] [address] [place], [address], 05/29/2024 12:05:01 02/16/19 25 02/17/2024 XR, lumbo sacra l spine , 2 or 3 view [facility] [address] [facility] [address] Jon bowie Name: MICHELL bowie : [birth year] 54 Patisharon t Orderi ng Provid er: PELON THURMAN EXAM DATE: 2024 EXAM: XR LUMBAR AP/LAT CLINIC AL INFORM ATION: Back pain. IMAGES PROVID ED: AP, latera l and coned down views of the lumbar spine. COMPAR JULIANN: 023 FINDIN GS: The patien t is status post L3-L5 bottle packer ior fixati on and interb neal fusion . Again noted is a subtle malali gnment at L2-3. Modera te degene rative disc diseas e change s. No radiog raphic eviden ce of injury is noted. IMPRES CONCHIS: Uncomp licate d appear ing L3-L5 fusion Interp reted By: Vicente Truong MD Electr onical ly Signed By: Vicente Truong MD on 02/16/19 12:35 PM [facility] [address] [place], [address], 03/02/2024 07:53:38 07/11/19 25 07/10/2024 XR, lumbo sacra l spine , 2 or 3 view [facility] [address] [place] [address] Jon bowie Name: MICHELL bowie : [birth year] 54 Jon bowie Orderi ng Provid er: PELON THURMAN EXAM DATE: 2024 EXAM: XR LUMBAR AP/LAT CLINIC AL INFORM ATION: Back pain. Surger y follow -up IMAGES PROVID ED: AP, latera l and coned down views of the lumbar spine. COMPAR JULIANN: 2024 FINDIN GS: Grade 1 anteri or listhe sis of L4 relati ve to L5. Previo us L3-L5 bottle packer ior fixati on and interb neal fusion . No hardwa re compli cation . No hardwa re loosen ing or fractu re. No radiog raphic eviden ce of injury is noted. IMPRES CONCHIS: Uncomp licate d appear ing L3-L5 fusion Interp reted By: Vicente Truong MD Electr onical ly Signed By: Vicente Truong MD on 07/11/19 11:42 AM [facility] [address] [place], [address], 07/10/2024 15:05:31 Result Notes None recorded. Problems Name Problem SNOMED Code Status Onset Date Resolution Date Notes Provider Name and Address Organization Details Recorded Time Hypertensiv e disorder 96396287 Active 2017 SAMSON ARMSTRONG MD [facility] [place], [address], [facility] 8 13:48:35 Seasonal allergy 327564707 Active 2017 SAMSON ARMSTRONG MD [address] [place], [address], [facility] 8 13:48:53 intermodal customer service current use of non-steroid al anti-inflam matory drug 7254508615612 03 Active 2017 SAMSON ARMSTRONG MD [address] [place], [address], [facility] 8 13:49:22 Interverteb ral disc disorder 64630027 Active 2017 SAMSON ARMSTRONG MD [address] [place], [address], [facility] 8 13:50:28 Prostate specific antigen above reference range 251575341 Active 2017 SAMSON ARMSTRONG MD [address] [place], [address], [facility] 8 13:52:28 Polyp of colon 20087534 Active 2017 SAMSON ARMSTRONG MD [address] [place], [address], [facility] 8 13:54:14 Prediabetes 225151488 Active 2017 SAMSON ARMSTRONG MD [address] [place], [address], [facility] 8 17:11:05 Hyperlipide jesus 57737154 Active 2017 SAMSON ARMSTRONG MD [address] [place], [address], [facility] 8 17:11:45 History of malignant neoplasm of skin 726890582 [facility] Problem Notes None recorded. Procedures Surgical History Date Name Laterality Status Provider Name and Address Organization Details Recorded Time 5 DAK - Cryo AK completed Abena Palmer [facility] 05/25/2024 08:13:48 5 DAK - Biopsy, Tangential [facility] 08:13:45 4 DAK - Cryo AK completed Abena Palmer [facility] 12/06/2023 08:14:47 4 DAK - ED&C; trunk,arm,leg completed Abena Palmer [facility] 09/09/2023 08:26:13 4 DAK - Cryo AK completed Abena Palmer [facility] 06/03/2023 08:12:46 4 DAK - Destruction BN Lesions completed [facility] 06/03/2023 08:13:26 4 DAK - Biopsy, Tangential completed [facility] 06/03/2023 08:13:35 3 DAK - Cryo AK completed [facility] 01/14/2023 09:38:39 3 DAK - Destruction BN Lesions completed [facility] 01/14/2023 09:38:51 3 DAK - ED&C; trunk,arm,leg completed [facility] 01/14/2023 09:41:02 3 Stress Test - Nuclear Lexiscan completed ERICK CERVANTES MD [address] [place] [address], [address], [facility] 12/09/2022 11:10:43 3 EKG completed Chris Day [facility] 09/09/2022 08:56:57 7 Biopsy Prostate, Needle w/Transrectal US completed FARRAH PRIDE MD [address] [place] [address], [address], [facility] 11/27/2016 10:50:20 7 Biopsy Prostate, Needle w/Transrectal US completed FARRAH PRIDE MD [address] [place] [address], [address], [facility] 05/15/2016 10:22:59 7 Prostate biopsy, any mthd completed Hattie Rodriguez [facility] 11/04/2016 16:11:41 Imaging Results None recorded. Procedure Notes None recorded. Medical Equipment None Reported. Allergies No known drug allergies Medications Name Sig Start Date Stop Date Status Note LastModified by Organization Details LastModified Time Zocor 20 mg tablet Daily 04/08 completed Duration : 30 days;Tony quency: daily;Me dication Descript ion: simvasta tin; Dosage:1 ; Route:or al; refills: 5; Quantity :30 tablet Not Available Not Available Not Available latanopro st 0.005 % eye drops INSTILL 1 DROP INTO EACH EYE ONCE DAILY active Not Available Not Available No t Available Percocet 7.5 mg-325 mg tablet Take 1 tablet every 6 hours by oral route as needed. 2023 active Not Available Not Available Not Avai lable trazodone 50 mg tablet Take 1 tablet every day by oral route. active Not Available Not Available No t Available cetirizin e 10 mg tablet Take 1 tablet every day by oral route. active Not Available Not Available No t Available azithromy divine 250 mg tablet TAKE 2 TABLETS (500 MG) BY ORAL ROUTE ONCE DAILY FOR 1 DAY THEN 1 TABLET (250 MG) BY ORAL ROUTE ONCE DAILY FOR 4 DAYS 01/19 completed Not Available Not Available Not Available hydrocodo ne 5 mg-acetam inophen 325 mg tablet Take 1 tablet every 6 hours by oral route. 2023 active Not Available Not Available Not Avai lable ibuprofen 200 mg capsule Take 2 capsules twice a day by oral route. 09/05 completed Not Available Not Available Not Available ondansetr on HCl 4 mg tablet active Not Available Not Available No t Available Nexium 40 mg capsule,d elayed release Daily 04/08 completed Duration : 30 days;Tony quency: daily;Me dication Descript ion: esomepra zole; Dosage:1 ; Route:or al; refills: 0; Quantity :30 enteric coated capsule Not Available Not Available Not Available ciproflox acin 500 mg tablet Take 1 tablet every 12 hours by oral route. 09/05 completed Not Available Not Available Not Available amlodipin e 10 mg tablet Take 1 tablet every day by oral route. 09/05 completed Not Available Not Available Not Available oseltamiv ir 75 mg capsule 01/19 completed Not Available Not Available Not Available triamcino lone acetonide 0.1 % topical ointment 09/09 completed Not Available Not Available Not Available Diovan HCT 160 mg-12.5 mg tablet Daily 04/08 completed Frequenc y: daily;Me dication Descript ion: hydrochl orothiaz elizabeth-vals annmarie; Dosage:1 ; refills: 5; Quantity :30 Not Available Not Available Not Available gabapenti n 300 mg capsule TAKE 1 CAPSULE BY MOUTH 4 TIMES DAILY active Not Available Not Available No t Available omeprazol e 20 mg capsule,d elayed release Take 1 capsule every day by oral route. active Not Available Not Available No t Available hydrochlo rothiazid e 25 mg tablet Take 1 tablet every day by oral route. active Not Available Not Available No t Available diclofena c sodium 50 mg tablet,de layed release TAKE 1 TABLET BY MOUTH TWICE DAILY active Not Available Not Available No t Available levofloxa divine 500 mg tablet TAKE 1 TABLET BY MOUTH THE DAY PRIOR TO PROCEDUR E ONE THE DAY OF PROCEDUR E THEN ONE THE DAY AFTER PROCEDUR E 09/09 completed Not Available Not Available Not Available methylpre dnisolone 4 mg tablets in a dose pack TAKE BY MOUTH DIRECTED ON INSIDE OF PACKAGE 09/09 completed Not Available Not Available Not Available cefdinir 300 mg capsule Take 1 capsule every 12 hours by oral route for 7 days. 02/23 completed Not Available Not Available Not Available losartan 100 mg tablet TAKE 1 TABLET BY MOUTH ONCE DAILY active Not Available Not Available No t Available fluticaso ne propionat e 50 mcg/actua tion nasal spray,maria r pension [place] 2 sprays every day by intranas al route. 09/05 completed Not Available Not Available Not Available fluticaso ne propionat e 110 mcg/actua tion HFA aerosol inhaler Inhale 1 puff twice a day by inhalati on route. 01/19 completed Not Available Not Available Not Available rosuvasta tin 10 mg tablet Take 1 tablet every day by oral route. active Not Available Not Available No t Available rosuvasta tin 20 mg tablet Take 1 tablet every day by oral route. 09/05 completed Not Available Not Available Not Available pregabali n 150 mg capsule active Not Available Not Available Not Available saw palmetto 09/05 completed Not Available Not Available Not Available omeprazol e 01/19 completed Not Available Not Available Not Available amlodipin e as directed active Not Available Not Available No t Available Glucosami ne 09/05 completed Not Available Not Available Not Available Vitamin D3 09/09 completed Not Available Not Available Not Available Multivita min 50 Plus 09/05 completed Not Available Not Available Not Available Super B Complex-V itamin C 09/09 completed Not Available Not Available Not Available Probiotic 09/05 completed Not Available Not Available Not Available Lumigan 0.01 % eye drops INSTILL 1 DROP INTO EACH EYE AT BEDTIME 09/05 completed Not Available Not Available Not Available Versapro Cream Base topical active Not Available Not Available Not Available Chantix Starting Month Box 0.5 mg (11)-1 mg (42) tablets in dose pack 01/19 completed Not Available Not Available Not Available aspirin 81 mg capsule Take 1 capsule every day by oral route. active Not Available Not Available No t Available Vitals Date Recorded Body height Body mass index (BMI) Body weight Systolic blood pressure Diastolic blood pressure Provider Name and Address Organization Details Last Updated DateTime 02/17/2024 177.8 cm 28.7 kg/m2 66028.47 g 132 mm[Hg] 80 mm[Hg] [facility] 13:25:06 Date Recorded Body height Provider Name an d Address Organization Details Last Updated DateTime 05/25/2024 177.8 cm Annika Foyneel [facility] 05/25/2024 07:46:26 Date Recorded Body height Provider Name an d Address Organization Details Last Updated DateTime 07/10/2024 177.8 cm [facility] 07/10/2024 11:50:14 Social History Question Answer Notes LastModified by Organizat ion Details LastModified Time Tobacco Smoking Status Current Every Day Smoker Hattie lee, [facility] 04/08/2016 13:08:41 Do You Have An Advance Directive? No [email or web address] Information not available 01/19/2018 What Is Your Level Of Caffeine Consumption? Heavy Information not available 01/19/2018 How Much Tobacco Do You Chew? None [email or web address] Information not available 01/19/2018 Which Illicit Or Recreational Drugs Have You Used? No [email or web address] Information not available 01/19/2018 Education 2 Year College [email or web address] Information not available 01/19/2018 Are There Any Guns Present In Your Home? Yes [email or web address] Information not available 01/19/2018 Hard Of Hearing Or Deaf In One Or Both Ears? Yes [email or web address] Information not available 01/19/2018 Legally Blind In One Or Both Eyes? No [email or web address] Information no t available 01/19/2018 Live Alone Or With Others? With Others [email or web address] Information not available 01/19/2018 Marital Status Informatio n not available 04/08/2016 What Was The Date Of Your Most Recent Tobacco Screening? 09/09/2023 [email or web address] Information not available 09/09/2023 How Many Children Do You Have? 4 [email or web address] Information not available 01/19/2018 Performs Monthly Self-breast Exam? No [email or web address] Information no t available 01/19/2018 What Is Your Relationship Status? [email or web address] Information not available 09/09/2022 Seat Belts Used Routinely Yes Information not available 01/19/2018 Are You Sexually Active? Yes [email or web address] Information not available 01/19/2018 Smoke Alarm In Home Yes [email or web address] Information not available 01/19/2018 At What Age Did You Start Smoking Tobacco? 13 [email or web address] Information not available 01/19/2018 How Much Tobacco Do You Smoke? 0.5 PPD [email or web address] Information not available 01/19/2018 General Stress Level Medium [email or web address] Information not available 01/19/2018 Do You Use Sunscreen Routinely? Yes [email or web address] Information not available 01/19/2018 Has Tobacco Cessation Counseling Been Provided? Yes [email or web address] Information not available 02/07/2018 On What Date Was Tobacco Cessation Counseling Provided? 09/09/2022 Information not available 09/09/2022 How Many Years Have You Smoked Tobacco? 50 [email or web address] Information not available 01/19/2018 Have You Recently Traveled Abroad? No [email or web address] Information not available 09/09/2022 Sex: Male Functional Status Question Answer Note LastModified by Organizat ion Details LastModified Time What is your level of alcohol consumption? None Information not available 04/08/2016 Are you currently employed? Yes [email or web address] Information not available 01/19/2018 Are you able to care for yourself? 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 Occasional [email or web address] Information not available 01/19/2018 Mental Status None recorded. Family History Relationship Description Onset Age of this Age Resolved Age Notes LastModified by Organization Details LastModified Time Mother Diabetes mellitus Not available 2016 13:08:33 Mother Heart disease [email or web address] Not available 01/2018 13:34:31 Father Hypertensive disorder [email or web address] Not available 01/2018 13:34:50 Paternal Uncle Heart disease [email or web address] Not available 01/2018 13:35:13 Medical History Condition Response TENS Unit for current problem N Traction for current problem N Coronary Artery Disease N Massage Therapy for current problem N Other N Gout N Atrial Fibrillation N Kidney Stones N Hyperthyroidism N Narcotic Pain Medication for current pro blem N Emphysema Y Depression N COPD Y Hypothyroidism N Injections for current problem Y Difficulty Swallowing N Deep Vein Thrombosis Y Anxiety Disorder N Meniere's disease N Obesity N Arthritis Y Mental Disorder N Cancer N Stroke N High Cholesterol N Liver Disease N Dialysis N Fibromyalgia N Kidney Disease N Allergies/Hayfever Y Neuro-modulating Drugs for current probl em Y False Teeth Y Parkinson's Disease N Black Lung N Alzheimer's N Steroid Pack for current problem N NSAID Use Y Osteoporosis/Osteopenia N Anemia N MRSA exposure N Heart Attack (AK) N Mental Illness N Diabetes N Bleeding Disorder N Tuberculosis N Genetic Disorder N AIDS/HIV N Congestive Heart Failure (CHF) N Kidney Failure N Chiropractor treatment for current probl em N Diverticulitis N Ultrasound Treatment for current problem N Asthma N Epilepsy/Seizures N Basal Cell Carcinoma Y Reflux/GERD N Sleep Apnea N Thyroid Disorder N Physical Therapy Treatments for current problem N Heart Disease N Pulmonary Embolism N Hypertension Y Chronic Ear Infections N Osteoporosis N Immunizations Vaccine Type Date Status Note Provider Nam e and Address Organization Details Recorded Time influenza, unspecified formulation 12/09/2017 completed Suze Philippe [facility] 01/19/2018 13:36:12 Past Encounters Encounter ID Performer Location Encounter Start Date Encounter Closed Date Diagnosis/Indication Diagnosis SNOMED-CT Code Diagnosis ICD10 Code Diagnosis Note [id number] FARRAH PRIDE MD UROLOGY [facility] [address] [facility] [place] [address] 04/08/2016 12:48:40 04/08/2016 13:41:22 Prostate specific antigen above reference range 264441587 R97.20 Benign pro static hyperplasia with outflow obstruction 582862050 N40.1 Prostatitis 2795549 N41. 9 assymptoma tic, no UTI [id number] FARRAH PRIDE MD SURGERY SCHEDULE [address] [place] [address] 05/15/2016 08:09:12 05/15/2016 08:15:18 [id number] FAR[facility] PRIDE [facility] [address] [place] [address] 11/04/2016 16:00:44 11/16/2016 09:18:36 Prostate specific antigen above reference range 732048385 R97.20 [id number] FARRAH PRIDE MD SURGERY SCHEDULE [address] [place] [address] 11/27/2016 09:39:45 11/27/2016 09:41:52 Prostate specific antigen above reference range 634628474 R97.20 [id number] SAMSON ARMSTRONG MD INTERNAL MED[facility]INE [facility] [address] [facility] [address] 01/19/2018 13:00:25 01/19/2018 14:03:29 Hypertensive disorder 11206785 I10 Seasonal allergy 6368528 04 J30.2 FDC current use of non-steroidal anti-inflammatory drug 0725317710 50552 Z79.1 Interverte bral disc disorder 15708688 M51.9 Patient reported disc herniation and cervical spine and lumbar spine. Patient previously treated with steroid injections Prostate s pecific antigen above reference range 031734816 R97.20 Patient followed by urology. He previously had prostate biopsy on 11/27/16. Polyp of colon 40704264 K63.5 Patient reported a history of colon polyps on previous colonoscop y. Pain of le ft shoulder joint 6191684741 3705193 M25.512 On 01/19/18, patient reported anterior left shoulder pain, which caused difficulty in lifting his left arm due to the pain with range of motion. At that time, patient was prescribed a Medrol Dosepak. [id number] SAMSON ARMSTRONG MD INTERNAL MEDICINE [facility] [address] [facility] [address] 01/26/2018 14:50:10 01/26/2018 15:20:53 Pain of left shoulder joint 9859020172 3887492 M25.512 On 01/19/18, patient reported anterior left shoulder pain, which caused difficulty in lifting his left arm due to the pain with range of motion. At that time, patient was prescribed a Medrol Dosepak. On 01/20/18, patient had an x-ray of his left shoulder which was an unremarkab le exam. On 01/26/18, patient reported no improvemen t in left shoulder pain with a Medrol Dosepak. At that time, patient was referred for orthopedic s evaluation . Hypertensive disorder 38 456383 I10 Seasonal allergy 1486086 04 J30.2 FDC current use of non-steroidal anti-inflammatory drug 7582140642 20912 Z79.1 Interverte bral disc disorder 59513949 M51.9 Patient reported disc herniation and cervical spine and lumbar spine. Patient previously treated with steroid injections Prostate s pecific antigen above reference range 522782236 R97.20 Patient followed by urology. He previously had prostate biopsy on 11/27/16. On 08/05/17, his PSA was 8.4. Polyp of colon 78831182 K63.5 Patient reported a history of colon polyps on previous colonoscop y. Prediabetes 431153694 R7 3.03 On 08/05/17, his A1c was 5.5. On 12/13/17, his fasting glucose was 120. Hyperlipidemia 91358718 E78.5 On 12/13/17, his total cholestero l was 184, HDL 40, triglyceri lisette 174, LDL 109. [id number] SAMSON ARMSTRONG MD INTERNAL MEDICINE [facility] [address] [facility] [address] 02/15/2018 15:20:08 02/15/2018 16:14:51 Pain of left shoulder joint 4061039221 2673073 M25.512 On 01/19/18, patient reported anterior left shoulder pain, which caused difficulty in lifting his left arm due to the pain with range of motion. At that time, patient was prescribed a Medrol Dosepak. On 01/20/18, patient had an x-ray of his left shoulder which was an unremarkab le exam. On 01/26/18, patient reported no improvemen t in left shoulder pain with a Medrol Dosepak. At that time, patient was referred for orthopedic s evaluation . Prediabetes 265116721 R7 3.03 On 08/05/17, his A1c was 5.5. On 12/13/17, his fasting glucose was 120. Hyperlipidemia 10611183 E78.5 On 12/13/17, his total cholestero l was 184, HDL 40, triglyceri lisette 174, LDL 109. Hypertensive disorder 38 302264 I10 Seasonal allergy 7785333 04 J30.2 intermodal customer service current use of non-steroidal anti-inflammatory drug 8696893486 20316 Z79.1 Interverte bral disc disorder 83635967 M51.9 Patient reported disc herniation and cervical spine and lumbar spine. Patient previously treated with steroid injections Prostate s pecific antigen above reference range 094111329 R97.20 Patient followed by urology. He previously had prostate biopsy on 11/27/16. On 08/05/17, his PSA was 8.4. Polyp of colon 22730897 K63.5 Patient reported a history of colon polyps on previous colonoscop y. Influenza- like illness 98893551 B34.9 On 02/15/18, screen for influenza A and influenza B were negative. Pharyngitis 846912478 J0 2.9 On 02/15/18, strep screen was negative. Upper resp iratory infection 20798087 J06.9 On 02/15/18, patient was prescribed Omnicef and a Medrol Dosepak. [id number] SAMSON ARMSTRONG MD INTERNAL MEDICINE [facility] CLOSED [address] [facility],[place] [address] 02/23/2018 15:40:41 02/23/2018 16:07:31 Upper respiratory infection 01366073 J06.9 On 02/15/18, patient was prescribed Omnicef and a Medrol Dosepak. On 02/23/18, patient reported feeling better, and he declined any further antibiotic s. Pain of le ft shoulder joint 0970065945 2104506 M25.512 On 01/19/18, patient reported anterior left shoulder pain, which caused difficulty in lifting his left arm due to the pain with range of motion. At that time, patient was prescribed a Medrol Dosepak. On 01/20/18, patient had an x-ray of his left shoulder which was an unremarkab le exam. On 01/26/18, patient reported no improvemen t in left shoulder pain with a Medrol Dosepak. At that time, patient was referred for orthopedic s evaluation . Prediabetes 207425283 R7 3.03 On 08/05/17, his A1c was 5.5. On 12/13/17, his fasting glucose was 120. Hyperlipidemia 82611551 E78.5 On 12/13/17, his total cholestero l was 184, HDL 40, triglyceri lisette 174, LDL 109. 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 Patient previously treated with steroid injections Prostate s pecific antigen above reference range 199309779 R97.20 Patient followed by urology. He previously had prostate biopsy on 11/27/16. On 08/05/17, his PSA was 8.4. Polyp of colon 65983073 K63.5 Patient reported a history of colon polyps on previous colonoscop y. [id number] FARRAH PRIDE MD [facility] [address] [address] 12/29/2018 14:02:35 01/10/2019 10:51:53 Prostate specific antigen above reference range 050190051 R97.20 [id number] FARRAH PRIDE MD UROLOGY [facility] [address] [address] 01/19/2019 15:11:50 01/27/2019 10:20:26 Prostate specific antigen above reference range 273048471 R97.20 [id number] FARRAH PRIDE MD UROLOGY [facility] [address] [address] 02/16/2019 15:03:04 02/17/2019 11:58:54 Prostate specific antigen above reference range 176874971 R97.20 Prostatitis 4725974 N41. 9 assymptoma tic, no UTI [id number] FARRAH PRIDE MD UROLOGY [facility] [address] [address] 03/09/2019 14:55:53 03/13/2019 12:13:52 Prostate specific antigen above reference range 233318687 R97.20 Prostatitis 6502466 N41. 9 assymptoma tic, no UTI [id number] FARRAH PRIDE MD UROLOGY [address] [place] [address] 04/04/2019 14:43:49 04/05/2019 10:23:19 Prostate specific antigen above reference range 893359979 R97.20 [id number] FARRAH PRIDE MD UROLOGY [facility] [address] [facility] [place] [address] 04/06/2019 15:10:46 04/14/2019 13:56:12 Prostate specific antigen above reference range 259806824 R97.20 s/p trus/pbx times 2 Prostatitis 8865794 N41. 9 assymptoma tic, no UTI [id number] FARRAH PRIDE MD UROLOGY [facility] [address] [place] [address] 09/05/2020 15:50:44 09/05/2020 16:31:02 Prostate specific antigen above reference range 560026793 R97.20 Prostatitis 8218161 N41. 9 assymptoma tic, no UTI [id number] FARRAH PRIDE MD SURGERY SCHEDULE [address] [place] [address] 09/20/2020 08:02:21 09/20/2020 08:03:15 [id number] CHUCHO HANNON, CLIENT REPORTING ASSOCIATE [facility] CL[facility] [address] [facility] [place] [address] 05/18/2022 09:11:36 05/19/2022 04:24:40 Lumbar radiculopathy 456617481 M54.16 [id number] CHUCHO HANNON CLIENT REPORTING ASSOCIATE [facility] [address] [facility],[address] [place] [address] 06/15/2022 09:54:25 06/16/2022 04:22:12 Lumbar spondylosis 590973096 M47.896 Lumbar spondylolisthesis 6051912463 98590 M43.16 [id number] ERICK CERVANTES MD CARDIOLOG Y [address] [place] [address] 09/09/2022 08:27:08 09/09/2022 09:32:38 Cigarette smoker 11354905 F17.210 Atheroscle rosis of coronary artery without angina pectoris 8513442535 29146 I25.10 Peripheral vascular disease 491599367 I73.9 Dyslipidemia 032844868 E 78.5 Essential hypertension 03764593 I10 [id number] ERICK CERVANTES MD CARDIOLOG Y [address] [place] [address] 12/09/2022 07:35:04 12/09/2022 11:21:56 Peripheral vascular disease 779585367 I73.9 Cigarette smoker 1362047 7 F17.210 Dyslipidemia 668806693 E 78.5 Essential hypertension 70178315 I10 [id number] ERICK CERVANTES MD [facility] [address] [place] [address] 12/09/2022 07:36:09 12/09/2022 16:09:39 [id number] VIKY CHI MD [address] [address] 01/14/2023 08:49:22 01/14/2023 09:44:39 Basal cell carcinoma of lower extremity 913774695 C44.719 Biopsy proven BCC on the Left distal medial shinPathol ogy discussed with patientSit e confirmed with photo Epidermoid cyst 97263936 6 L72.0 Cysts are dilated follicles with keratinous material within. Can become inflamed if they rupture. Risks, benefits, side effects, alternativ es and options of excision were discussed with patient and the patient voiced understand ing. Rec no treatment if not bothersome . If it starts to change or become painful let us know. Actinic keratosis 007 L57.0 Actinic keratoses are precancero us lesions that may progress to squamous cell carcinoma if untreated. UV light and genetics may increase risk. Treated lesions should blister, scab over, and heal within a few weeks. If treated lesion(s) does not resolve within 1-2 months, patient agrees to follow up for re-evaluat ion. Inflamed s eborrheic keratosis 943872976 L82.0 R52 Bx proven SK Counseled on benign nature. Pt elected to treat with liquid nitrogen due to painful irritation . May recur or persist after treatment. Discolorat ion or scarring is possible. [id number] MD BOSTON CONNER [address] [address] 06/03/2023 07:37:37 06/03/2023 08:22:00 History of malignant neoplasm of skin 221342222 Z85.828 - No evidence of recurrence today- Call with any worrisome lesions or if treated lesions return- Return at regular intervals for skin exam as recommende d Most recent, 11/2022 Multiple b enign melanocytic nevi 626295460 D22.5 - Benign moles seen on exam today - SPF 30 or higher broad-spec trum sunscreen recommende d with re-applica tion every 2 hours - Discussed sun protection measures, including wide-brimm ed hat, sun-protec tive clothing, and avoidance of sun during peak hours of 10am-4pm - Avoid tanning beds as these can increase the chances of all 3 types of skin cancer - Instructed to monitor for changes and to call us for appointmen t with any changing or worrisome lesions Seborrheic keratosis 394 215906 L82.1 - Benign overgrowth s of skin - Hereditary Senile angioma 0469978 I 78.1 - Benign blood vessel growths - Hereditary Solar lentigo 45957928 L 81.4 - Benign brown spots - Sun-induce d Neoplasm o f uncertain behavior of skin 48193886 D48.5 Right deltoid - 9mm pink macule with vessels and black dots - R/o BCC Actinic keratosis 103807 007 L57.0 Actinic keratoses are precancero us lesions that may progress to squamous cell carcinoma if untreated. UV light and genetics may increase risk. Treated lesions should blister, scab over, and heal within a few weeks. If treated lesion(s) does not resolve within 1-2 months, patient agrees to follow up for re-evaluat ion. Inflamed s eborrheic keratosis 610746456 L82.0 R52 Counseled on benign nature. Pt elected to treat with liquid nitrogen due to painful irritation . May recur or persist after treatment. Discolorat ion or scarring is possible. [id number] FREDY DOMÍNGUEZ PA-C [facility] [address] [place] [address] 06/17/2023 08:22:24 06/18/2023 04:22:53 Lumbar radiculopathy 000863181 M54.16 Lumbar spondylosis 83704 0009 M47.896 Lumbar spondylolisthesis 9084834805 27859 M43.16 [id number] VIKY CHI MD [facility] [address] [place] [address] 09/09/2023 08:02:08 09/09/2023 08:31:05 Basal cell carcinoma of upper extremity 884169672 C44.612 Biopsy proven BCC superficia l on the Right deltoidPat h #: [id number] thology discussed with patientSit e confirmed with photo [id number] VIKY CHI MD [facility] [address] [place], [place] [address], [place] [address] 12/06/2023 08:09:45 12/06/2023 10:00:42 History of malignant neoplasm of skin 773054600 Z85.828 - No evidence of recurrence today- Call with any worrisome lesions or if treated lesions return- Return at regular intervals for skin exam as recommende d Most recent, 05/2023 Multiple b enign melanocytic nevi 444492403 D22.5 - Benign moles seen on exam today - SPF 30 or higher broad-spec trum sunscreen recommende d with re-applica tion every 2 hours - Discussed sun protection measures, including wide-brimm ed hat, sun-protec tive clothing, and avoidance of sun during peak hours of 10am-4pm - Avoid tanning beds as these can increase the chances of all 3 types of skin cancer - Instructed to monitor for changes and to call us for appointmen t with any changing or worrisome lesions Seborrheic keratosis 394 446340 L82.1 - Benign overgrowth s of skin - Hereditary Senile angioma 5837619 I 78.1 - Benign blood vessel growths - Hereditary Solar lentigo 46036155 L 81.4 - Benign brown spots - Sun-induce d Actinic keratosis 007 L57.0 Actinic keratoses are precancero us lesions that may progress to squamous cell carcinoma if untreated. UV light and genetics may increase risk. Treated lesions should blister, scab over, and heal within a few weeks. If treated lesion(s) does not resolve within 1-2 months, patient agrees to follow up for re-evaluat ion. [id number] ANNE THURMAN MD SURGERY SCHEDULE [address] [place] [address] 01/07/2024 09:07:59 01/13/2024 15:19:37 [id number] ANNE THURMAN MD [facility] [address] [facility] [address] [place] [address] 01/17/2024 12:49:49 01/27/2024 04:19:25 [id number] ANNE THURMAN MD [facility] CLOSED [address] [facility] [address] [place] [address] 02/17/2024 13:18:22 02/18/2024 04:37:51 Postoperative care 447883548 Z48.89 [id number] VIKY CHI MD [facility] [address] [facility] [place] [address] 05/25/2024 07:40:39 05/25/2024 08:21:59 History of malignant neoplasm of skin 436654639 Z85.828 - No evidence of recurrence today- Call with any worrisome lesions or if treated lesions return- Return at regular intervals for skin exam as recommende d Most recent, 05/2023 Multiple b enign melanocytic nevi 194360775 D22.5 - Benign moles seen on exam today - SPF 30 or higher broad-spec trum sunscreen recommende d with re-applica tion every 2 hours - Discussed sun protection measures, including wide-brimm ed hat, sun-protec tive clothing, and avoidance of sun during peak hours of 10am-4pm - Avoid tanning beds as these can increase the chances of all 3 types of skin cancer - Instructed to monitor for changes and to call us for appointmen t with any changing or worrisome lesions Seborrheic keratosis 394 106590 L82.1 - Benign overgrowth s of skin - Hereditary Senile angioma 3275199 I 78.1 - Benign blood vessel growths - Hereditary Solar lentigo 65914714 L 81.4 - Benign brown spots - Sun-induce d Neoplasm o f uncertain behavior of skin 32869575 D48.5 Right medial moravian - ill-define d 1.5cm pink patch with vessels - R/o BCC (Mohs if +) Actinic keratosis L57.0 Actinic keratoses are precancero us lesions that may progress to squamous cell carcinoma if untreated. UV light and genetics may increase risk. Treated lesions should blister, scab over, and heal within a few weeks. If treated lesion(s) does not resolve within 1-2 months, patient agrees to follow up for re-evaluat ion. [id number] SHERRI BALL JR, MD [facility] [address] [facility] [place] [address] 06/13/2024 11:20:30 06/13/2024 15:17:24 [id number] ANNE THURMAN MD [facility] [address] [place] [address] 07/10/2024 11:03:24 07/11/2024 04:32:12 Postoperative visit 753801859 Z48.89 Health Concerns Section Related Observation LastModified by Organization Detai ls LastModified Time None Recorded Concern Status LastModified by Organization Details LastModified Time None Recorded Advance Directives Directive N: Payers Insurance Date Sequence Insurance Name Policy Number Policy Miller Covered Member ID Miller Member ID Guarantor Name 07/09/2024 1 [place] [id number] Michell Scanlon [id number] Michell Scanlon 06/06/2024 1 [place] [id number] Michell Scanlon [id number] Michell Scanlon 05/21/2017 PAYMENT PLAN Michell Scanlon Notes Date Note Type Note Provider Name and Address Organization Details Recorded Time 02/17/2024 text/html Mr. Scanlon is a 68-year-old gentleman who presents in postoperative follow-up after an L3-4 and L4-5 fusion performed December 29, 2023. He is doing well, with good improvement of his presenting issues. He does continue to have some back pain at the belt line, as well as some occasional lower extremity nerve pain. He is on Lyrica 4 times daily. He denies any significant issues with his recovery. He presents with new x-rays. ANNE THURMAN MD [address] [place], [address], [facility] 02/17/2024 13:56:28 05/25/2024 text/html Here for a full body skin examination - last skin check: 11/2023- history of skin cancer - BCC- last skin cancer was in / R deltoid, 05/2023- spots of concern today: nose , L ear VIKY CHI MD [address] [place] [address], [address], [facility] 05/25/2024 15:13:23 07/10/2024 text/html Mr. Scanlon is a 68-year-old gentleman status post L3-L5 fusion on December 29, 2023. He has complete relief of his left-sided pain, but continues to have some right leg pain, which seems to follow an L4 distribution. He presents today for second postoperative visit with x-rays. ANNE THURMAN MD [facility] [place], [address], [facility] 07/10/2024 11:57:54
--- OUTSIDE RECORDS SUMMARY | 2024-07-12 09:05 | XMS_ITS | Continuity of Care Document ---
Author Organization [facility] Address [address] [place] [address] Care Team Providers Care Climate Change Analyst Name Role Phone CHRIS MELVI Primary Care Provider VIKY VILLALOBOS [employer] Internship Assessment No assessment recorded. Plan of Treatment Reminders Order Date Submit Date Provider Last Modified By Organization Details Last Modified Time Details Appointments RECHECK 2024 02:15P M ERICK CERVANTES MD Not available Not available Not available FOLLOW UP [facility] 2024 07:50A M VIKY CHI MD Not available Not available Not available Lab surgical pathology study 2024 04 025 [facility], [address] [place], [address], 05/29/2024 12:05:01 Referral None recorded. Procedures None recorded. Surgeries None recorded. Imaging None recorded. Medication Orders None recorded. Patient TargetsNo targets recorded. Patient Instructions Encounter Date Encounter Id Patient Instructions Last Modified By Organization Details Last Modified Time 05/25/2024 [id number] Recommended returning to clinic in 6 months for FBSE Not available 05/25/2024 08:06:42 Reason for Referral None Reported. Results Created Date Observation Date Name Description Value Unit Range Abnormal Flag Note LastModifiedBy Organization Detail LastModifiedTime 07/11/1907/10/2024 XR, lumbo sacra l spine , 2 or 3 view [facility] [address] [place] [address] Jon bowie Name: MICHELL bowie : [birth year] 54 Patien t Orderi ng Provid er: PELON THURMAN EXAM DATE: 2024 EXAM: XR LUMBAR AP/LAT CLINIC AL INFORM ATION: Back pain. Surger y follow -up IMAGES PROVID ED: AP, latera l and coned down views of the lumbar spine. COMPAR JULIANN: 2024 FINDIN GS: Grade 1 anteri or listhe sis of L4 relati ve to L5. Previo us L3-L5 tours hostess ior fixati on and interb neal fusion . No hardwa re compli cation . No hardwa re loosen ing or fractu re. No radiog raphic eviden ce of injury is noted. IMPRES CONCHIS: Uncomp licate d appear ing L3-L5 fusion Interp reted By: Vicente Truong MD Electr onical ly Signed By: Vicente Truong MD on 07/11/19 11:42 AM [facility] [address] [place], [address], 07/10/2024 15:05:31 Result Notes None recorded. Problems Name Problem SNOMED Code Status Onset Date Resolution Date Notes Provider Name and Address Organization Details Recorded Time Hypertensiv e disorder 83501708 Active 2017 SAMSON ARMSTRONG MD [address] [place] [address], [address], [facility] 8 13:48:35 Seasonal allergy 704651487 Active 2017 SAMSON ARMSTRONG MD [address] [place] [address], [address], [facility] 8 13:48:53 detention current use of non-steroid al anti-inflam matory drug 1150931603142 03 Active 2017 SAMSON ARMSTRONG MD [address] [place] [address], [address], [facility] 8 13:49:22 Interverteb ral disc disorder 59101676 Active 2017 SAMSON ARMSTRONG MD [address] [place] [address], [address], [facility] 8 13:50:28 Prostate specific antigen above reference range 898773144 Active 2017 SAMSON ARMSTRONG MD [address] [place], [address], [facility] 8 13:52:28 Polyp of colon 11924020 Active 2017 SAMSON ARMSTRONG MD [address] [place], [address], [facility] 8 13:54:14 Prediabetes 631285974 Active 2017 SAMSON ARMSTRONG MD [address] [place], [address], [facility] 8 17:11:05 Hyperlipide jseus 68418081 Active 2017 SAMSON ARMSTRONG MD [address] [place], [address], [facility] 8 17:11:45 History of malignant neoplasm of skin 131757205 Active 2023 [facility] [place] 08:08:23 Problem Notes None recorded. Procedures Surgical History Date Name Laterality Status Provider Name and Address Organization Details Recorded Time 5 DAK - Cryo AK completed [facility] 05/25/2024 08:13:48 5 DAK - Biopsy, Tangential completed [facility] 05/25/2024 08:13:45 4 DAK - Cryo AK completed [facility] 12/06/2023 08:14:47 4 DAK - ED&C; trunk,arm,leg completed Abena Palmer [facility] 09/09/2023 08:26:13 4 DAK - Cryo AK completed [facility] 06/03/2023 08:12:46 4 DAK - Destruction BN Lesions completed [facility] 06/03/2023 08:13:26 4 DAK - Biopsy, Tangential completed [facility] 06/03/2023 08:13:35 3 DAK - Cryo AK completed [facility] 01/14/2023 09:38:39 3 DAK - Destruction BN Lesions completed [facility] 01/14/2023 09:38:51 3 DAK - ED&C; trunk,arm,leg completed [facility] 01/14/2023 09:41:02 3 Stress Test - Nuclear Lexiscan completed ERICK CERVANTES MD [facility] [place], [address], [facility] 12/09/2022 11:10:43 3 EKG completed Chris Day [facility] 09/09/2022 08:56:57 7 Biopsy Prostate, Needle w/Transrectal US completed FARRAH PRIDE MD [address] [place] [address], [address], [facility] 11/27/2016 10:50:20 7 Biopsy Prostate, Needle w/Transrectal US completed FARRAH PRIDE MD [address] [place] [address], [address], [facility] 05/15/2016 10:22:59 7 Prostate biopsy, any mthd completed Hattie Rodriguez [facility] 11/04/2016 16:11:41 Imaging Results None recorded. Procedure [...] 50 mcg/actua tion nasal spray,maria r pension [place] 2 sprays every day by intranas al [...] t Available Vitals Date Recorded Body height Provider Name an d Address Organization Details Last Updated DateTime 05/25/2024 177.8 cm Annika Black [facility] 05/25/2024 07:46:26 Social History Question Answer Notes LastModified by Organizat ion Details LastModified Time Tobacco Smoking Status Current Every Day Smoker Hattie Juliann lee, [facility] 04/08/2016 13:08:41 Do You Have An Advance Directive? No [email or web address] Information not available 01/19/2018 What Is Your Level Of Caffeine Consumption? Heavy [email or web address] Information not available 01/19/2018 How Much Tobacco Do You Chew? None [email or web address] Information not available 01/19/2018 Which Illicit Or Recreational Drugs Have You Used? No [email or web address] Information not available 01/19/2018 Education 2 Year College [email or web address] Information not available 01/19/2018 Are There Any Guns Present In Your Home? Yes [email or web address] Information not available 01/19/2018 Hard Of Hearing Or Deaf In One Or Both Ears? Yes [email or web address] Information not available 01/19/2018 Legally Blind In One Or Both Eyes? No [email or web address] Information no t available 01/19/2018 Live Alone Or With Others? With Others [email or web address] Information not available 01/19/2018 Marital Status [email or web address] Informatio n not available 04/08/2016 What Was The Date Of Your Most Recent Tobacco Screening? 09/09/2023 Information not available 09/09/2023 How Many Children Do You Have? 4 [email or web address] Information not available 01/19/2018 Performs Monthly Self-breast Exam? No [email or web address] Information no t available 01/19/2018 What Is Your Relationship Status? [email or web address] Information not available 09/09/2022 Seat Belts Used Routinely Yes [email or web address] Information not available 01/19/2018 Are You Sexually Active? Yes [email or web address] Information not available 01/19/2018 Smoke Alarm In Home Yes [email or web address] Information not available 01/19/2018 At What Age Did You Start Smoking Tobacco? 13 Information not available 01/19/2018 How Much Tobacco Do You Smoke? 0.5 PPD [email or web address] Information not available 01/19/2018 General Stress Level Medium [email or web address] Information not available 01/19/2018 Do You Use Sunscreen Routinely? Yes [email or web address] Information not available 01/19/2018 Has Tobacco Cessation Counseling Been Provided? Yes [email or web address] Information not available 02/07/2018 On What Date Was Tobacco Cessation Counseling Provided? 09/09/2022 [email or web address] Information not available 09/09/2022 How Many Years Have You Smoked Tobacco? 50 Information not available 01/19/2018 Have You Recently Traveled Abroad? No Information not available 09/09/2022 Sex: Male Functional Status Question Answer Note LastModified by Organizat ion Details LastModified Time What is your level of alcohol consumption? None Information not available 04/08/2016 Are you currently employed? Yes [email or web address] Information not available 01/19/2018 Are you able to care for yourself? 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 Occasional Information not available 01/19/2018 Mental Status None recorded. Family History Relationship Description Onset Age of this Age Resolved Age Notes LastModified by Organization Details LastModified Time Mother Diabetes mellitus Not available 2016 13:08:33 Mother Heart disease [email or web address] Not available 01/2018 13:34:31 Father Hypertensive disorder [email or web address] Not available 01/2018 13:34:50 Paternal Uncle Heart disease Not available 01/2018 13:35:13 Medical History Condition [...] Anemia N MRSA exposure N Heart Attack ([place]) N Mental Illness N Diabetes N Bleeding [...] influenza, unspecified formulation 12/09/2017 [facility] 01/19/2018 13:36:12 Past Encounters Encounter ID Performer Location Encounter Start Date Encounter Closed Date Diagnosis/Indication Diagnosis SNOMED-CT Code Diagnosis ICD10 Code Diagnosis Note [id number] VIKY CHI MD [facility] [address] [place] [address] 05/25/2024 07:40:39 05/25/2024 08:21:59 History of malignant neoplasm of skin 804458687 Z85.828 - No evidence of recurrence today- Call with any worrisome lesions or if treated lesions return- Return at regular intervals for skin exam as recommende d Most recent, 05/2023 Multiple b enign melanocytic nevi 461155099 D22.5 - Benign moles seen on exam [...] changing or worrisome lesions Seborrheic keratosis 394 258995 L82.1 - Benign overgrowth s of skin - Hereditary Senile angioma 9318714 I 78.1 - Benign blood vessel growths - Hereditary Solar lentigo 70401855 L 81.4 - Benign brown spots - Sun-induce d Neoplasm o f uncertain behavior of skin 33070082 D48.5 Right medial roman catholic - ill-define d 1.5cm pink patch with vessels - R/o BCC (Mohs if +) Actinic keratosis 267066 007 L57.0 Actinic keratoses are precancero us lesions that may progress to squamous cell carcinoma if untreated. UV light and genetics may increase risk. Treated lesions should blister, scab over, and heal within a few weeks. If treated lesion(s) does not resolve within 1-2 months, patient agrees to follow up for re-evaluat ion. Health Concerns Section Related Observation LastModified by Organization Detai ls LastModified Time None Recorded Concern Status LastModified by Organization Details LastModified Time None Recorded Payers Encounter Date Sequence Insurance Name Policy Number Policy Miller Covered Member ID Miller Member ID Guarantor Name 05/25/2024 1 [place] [id number] Michell Damian [id number] Michell Damian Notes Date Note Type Note Provider Name and Address Organization Details Recorded Time 05/25/2024 text/html Here for a full body skin examination - last skin check: 11/2023- history of skin cancer - BCC- last skin cancer was in / R deltoid, 05/2023- spots of concern today: nose , L ear VIKY CHI MD [address] [place], [address], [facility] 05/25/2024 15:13:23
--- OUTSIDE RECORDS SUMMARY | 2024-07-12 09:06 | XMS_ITS | Continuity of Care Document ---
Author Organization [facility] Address [address] [facility] [address] Care Team Providers Care Pourer Metal Name Role Phone CHRIS MELVI Primary Care Provider VIKY VILLALOBOS Plug Sorter Assessment No assessment recorded. Plan of Treatment Reminders Order Date Submit Date Provider Last Modified By Organization Details Last Modified Time Details Appointments RECHECK 2024 02:15P M ERICK CERVANTES MD Not available Not available Not available FOLLOW UP [facility] 2024 07:50A M VIKY CHI MD Not available Not available Not available Lab None recorded . Referral None recorded . Procedures None recorded . Surgeries None recorded . Imaging None recorded . Medication Orders None recorded . Patient TargetsNo targets recorded. Patient InstructionsNo instructions recorded. Reason for Referral None Reported. Results Created Date Observation Date Name Description Value Unit Range Abnormal Flag Note LastModifiedBy Organization Detail LastModifiedTime 07/11/19 25 07/10/2024 XR, lumbo sacra l spine , 2 or 3 view [facility] [address] [place] [address] Patisharon bowie Name: MICHELL SCANLON Jon bowie : [birth year] 54 Patisharon bowie Orderi ng Provid er: PELON THURMAN EXAM DATE: 2024 EXAM: XR LUMBAR AP/LAT CLINIC AL INFORM ATION: Back pain. Surger y follow -up IMAGES PROVID ED: AP, latera l and coned down views of the lumbar spine. COMPAR JULIANN: 2024 FINDIN GS: Grade 1 anteri or listhe sis of L4 relati ve to L5. Previo us L3-L5 bobbin painter ior fixati on and interb neal fusion . No hardwa re compli cation . No hardwa re loosen ing or fractu re. No radiog raphic eviden ce of injury is noted. IMPRES CONCHIS: Uncomp licate d appear ing L3-L5 fusion Interp reted By: Vicente Truong MD Electr onical ly Signed By: Vicente Truong MD on 07/11/19 11:42 AM [facility] [address] [place], [address], 07/10/2024 15:05:31 Result Notes None recorded. 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 1522400754584 03 Active 2017 SAMSON ARMSTRONG MD [address] [place] [address], [address], [facility] 8 13:49:22 Interverteb ral disc disorder 69921423 Active 2017 SAMSON ARMSTRONG MD [address] [place] [address], [address], [facility] 8 13:50:28 Prostate specific antigen above reference range 241343642 Active 2017 SAMSON ARMSTRONG MD [address] [place] [address], [address], [facility] 8 13:52:28 Polyp of colon 83839530 Active 2017 SAMSON ARMSTRONG MD [address] [place] [address], [address], [facility] 8 13:54:14 Prediabetes 945148253 Active 2017 SAMSON ARMSTRONG MD [address] [place], [address], [facility] 8 17:11:05 Hyperlipide jesus 37092642 Active 2017 SAMSON ARMSTRONG MD [address] [place], [address], [facility] 8 17:11:45 History of malignant neoplasm of skin 525513478 Active 2023 [facility] 4 08:08:23 Problem Notes None recorded. Procedures Surgical History Date Name Laterality Status Provider Name and Address Organization Details Recorded Time 5 [facility] 05/25/2024 08:13:48 5 DAK - Biopsy, Tangential completed [facility] 05/25/2024 08:13:45 4 DAK - Cryo AK completed [facility] 12/06/2023 08:14:47 4 DAK - ED&C; trunk,arm,leg completed Abena Palmer [facility] 09/09/2023 08:26:13 4 [facility] 06/03/2023 08:12:46 4 DAK - Destruction BN Lesions completed Abena Palmer [facility] 06/03/2023 08:13:26 4 DAK - Biopsy, Tangential completed Abena Palmer [facility] 06/03/2023 08:13:35 3 DAK - Cryo AK completed Abena Palmer [facility] 01/14/2023 09:38:39 3 DAK - Destruction BN Lesions completed Abena Palmer [facility] 01/14/2023 09:38:51 3 DAK - ED&C; trunk,arm,leg completed Abena Palmer [facility] 01/14/2023 09:41:02 3 Stress Test - Nuclear Lexiscan completed ERICK CERVANTES MD [address] [place] [address], [address], [facility] 12/09/2022 11:10:43 3 EKG completed Chris Shay [facility] 09/09/2022 08:56:57 7 Biopsy Prostate, Needle w/Transrectal US completed FARRAH PRIDE MD [address] [place] [address], [address], [facility] 11/27/2016 10:50:20 7 Biopsy Prostate, Needle w/Transrectal US completed FARRAH PRIDE MD [address] [place] [address], [address], [facility] 05/15/2016 10:22:59 7 Prostate biopsy, any mthd completed Hattie Rodriguez [facility] 11/04/2016 16:11:41 Imaging Results None recorded. Procedure [...] 50 mcg/actua tion nasal spray,maria r pension [place] 2 sprays every day by intranas al [...] Available Not Available No t Available Vitals None Recorded Social History Question Answer Notes LastModified by Organizat ion Details LastModified Time Tobacco Smoking Status Current Every Day Smoker Hattie Rodriguez [facility], [facility] 04/08/2016 13:08:41 Do You Have An Advance Directive? No [email or web address] Information not available 01/19/2018 What Is Your Level Of Caffeine Consumption? Heavy Information not available 01/19/2018 How Much Tobacco Do You Chew? None [email or web address] Information not available 01/19/2018 Which Illicit Or Recreational Drugs Have You Used? No [email or web address] Information not available 01/19/2018 Education 2 Year College [email or web address] Information not available 01/19/2018 Are There Any Guns Present In Your Home? Yes Information not available 01/19/2018 Hard Of Hearing Or Deaf In One Or Both Ears? Yes [email or web address] Information not available 01/19/2018 Legally Blind In One Or Both Eyes? No [email or web address] Information no t available 01/19/2018 Live Alone Or With Others? With Others [email or web address] Information not available 01/19/2018 Marital Status alisson Informatio n not available 04/08/2016 What Was The Date Of Your Most Recent Tobacco Screening? 09/09/2023 Information not available 09/09/2023 How Many Children Do You Have? 4 [email or web address] Information not available 01/19/2018 Performs Monthly Self-breast Exam? No [email or web address] Information no t available 01/19/2018 What Is Your Relationship Status? [email or web address] Information not available 09/09/2022 Seat Belts Used Routinely Yes [email or web address] Information not available 01/19/2018 Are You Sexually Active? Yes [email or web address] Information not available 01/19/2018 Smoke Alarm In Home Yes [email or web address] Information not available 01/19/2018 At What Age Did You Start Smoking Tobacco? 13 [email or web address] Information not available 01/19/2018 How Much Tobacco Do You Smoke? 0.5 PPD [email or web address] Information not available 01/19/2018 General Stress Level Medium [email or web address] Information not available 01/19/2018 Do You Use Sunscreen Routinely? Yes [email or web address] Information not available 01/19/2018 Has Tobacco Cessation Counseling Been Provided? Yes [email or web address] Information not available 02/07/2018 On What Date Was Tobacco Cessation Counseling Provided? 09/09/2022 [email or web address] Information not available 09/09/2022 How Many Years Have You Smoked Tobacco? 50 [email or web address] Information not available 01/19/2018 Have You Recently Traveled Abroad? No [email or web address] Information not available 09/09/2022 Sex: Male Functional Status Question Answer Note LastModified by Organizat ion Details LastModified Time What is your level of alcohol consumption? None Information not available 04/08/2016 Are you currently employed? Yes [email or web address] Information not available 01/19/2018 Are you able to care for yourself? 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 Occasional [email or web address] Information not available 01/19/2018 Mental Status None recorded. Family History Relationship Description Onset Age of this Age Resolved Age Notes LastModified by Organization Details LastModified Time Mother Diabetes mellitus Not available 2016 13:08:33 Mother Heart disease [email or web address] Not available 01/2018 13:34:31 Father Hypertensive disorder [email or web address] Not available 01/2018 13:34:50 Paternal Uncle Heart disease [email or web address] Not available 01/2018 13:35:13 Medical History Condition [...] Details Recorded Time influenza, unspecified formulation 12/09/2017 roya le[place], [place] [facility] 01/19/2018 13:36:12 Past Encounters Encounter ID Performer Location Encounter Start Date Encounter Closed Date Diagnosis/Indication Diagnosis SNOMED-CT Code Diagnosis ICD10 Code Diagnosis Note [id number] VIKY CHI MD [facility] [address] [place] [address] 05/25/2024 07:40:39 05/25/2024 08:21:59 History of malignant neoplasm of skin 352714408 Z85.828 - No evidence of recurrence today- Call with any worrisome lesions or if treated lesions return- Return at regular intervals for skin exam as recommende d Most recent, 05/2023 Multiple b enign melanocytic nevi 293372664 D22.5 - Benign moles seen on exam [...] changing or worrisome lesions Seborrheic keratosis 394 978495 L82.1 - Benign overgrowth s of skin - Hereditary Senile angioma 6846260 I 78.1 - Benign blood vessel growths - Hereditary Solar lentigo 91876874 L 81.4 - Benign brown spots - Sun-induce d Neoplasm o f uncertain behavior of skin 03305329 D48.5 Right medial voodoo - ill-define d 1.5cm pink patch with vessels - R/o BCC (Mohs if +) Actinic keratosis 596986 007 L57.0 Actinic keratoses are precancero us lesions that may progress to squamous cell carcinoma if untreated. UV light and genetics may increase risk. Treated lesions should blister, scab over, and heal within a few weeks. If treated lesion(s) does not resolve within 1-2 months, patient agrees to follow up for re-evaluat ion. [id number] [facility] [address] [place] [address] 06/13/2024 11:20:30 06/13/2024 15:17:24 Health Concerns Section Related Observation LastModified by Organization Detai ls LastModified Time None Recorded Concern Status LastModified by Organization Details LastModified Time None Recorded Payers Encounter Date Sequence Insurance Name Policy Number Policy Miller Covered Member ID Miller Member ID Guarantor Name 06/13/2024 1 [place] [id number] Michell Scanlon [id number] Michell Scanlon
--- NOTE | 2024-07-12 10:09 | EXP.PAIN.SOA ---
[facility] Disclaimer: The information contained in this section may have been updated after the patient was seen, as this information can be updated by other users. Medical History (Updated 07/12/24 @ 10:12 by Yuli Hyatt APRN) Prediabetes Seasonal allergies HTN (hypertension) HLD (hyperlipidemia) Surgical History H/O prostate biopsy Family History Other Diabetes Heart disease Hypertension Social History Smoking Status: Current every day smoker alcohol intake: never substance use type: denies use current occupational status: other Travel in the last 8 weeks?: None PM Subjective & Objective Subjective Subjective:: Patient is a pleasant 68-year-old male who presents today for follow-up. Today he does rated his pain at a 5 out of 10. He denies any new falls from our last appointment. He does state that he has been having worsening pain in his right shoulder. He states it is not the shoulder itself but more around his back around the edge of the shoulder blade. He states it is constant and is interfering with ability to perform activities of daily living such as cooking and cleaning. Patient does state that it is very tender to touch and that he has tried conservative measures with no additional improvement. Patient does state for last appointment he did end up seeing Dr. Dixon who did do additional x-ray imaging of his previous fusion. He states all of that looks good but he is still ordering an MRI in order to evaluate L2, 3 and 5 and the possibility of putting spacers in future. Patient did previously have SI injections back in May that did provide 80% improvement. He is prescribed from our office diclofenac 75 mg twice a day, pregabalin 150 mg 4 times a day and compounded cream. He denies any side effects. Patient does make mention that he also has been having some issues with his legs with DVT and that they did put him on blood thinners. His Ganesh has been reviewed and is appropriate. Review of Systems: General: No recent weight changes, no fever, no sleep disturbances Respiratory: No cough, no shortness of air, no recurring pulmonary infections Cardiovascular/peripheral vascular: No chest pain, no palpitations, no edema, no shortness of breath Gastrointestinal: No new onset incontinence, normal bowel movements reported Genitourinary: No new onset incontinence Musculoskeletal: Right shoulder pain Psychiatric: [Normal mood/affect] Neurological: [Denies weakness in extremities], [denies balance issues] Pain at rest (0-10 scale): 5 Objective Objective:: Physical Exam: General: Alert and oriented x3, no acute distress, pleasant and cooperative Lungs: Respirations even and unlabored, symmetrical chest expansion Eyes: PERRL Musculoskeletal: Flexion and extension of thoracic spine somewhat guarded secondary to pain, point tenderness noted along right rhomboid, trapezius and thoracic paraspinous/latissimus muscle Neurological: Speech clear, no gross sensory deficit Has patient had previous pain injection?: No Conservative treatment options previously tried: Home exercise plan Length of treatment: Longer than 12 weeks Meds Home Medications and Allergies Home Medications ?Medication ?Instructions ?Recorded ?Confirmed ?Type cetirizine 10 mg tablet 10 mg PO DAILY ALLERGIES 07/01/22 05/30/24 History hydrochlorothiazide 25 mg tablet 25 mg PO DAILY Fluid 07/01/22 05/30/24 History losartan 100 mg tablet 100 mg PO DAILY BLOOD PRESSURE 07/01/22 05/30/24 History omeprazole 20 mg capsule,delayed 20 mg PO DAILY GERD 07/01/22 05/30/24 History release gabapentin 300 mg capsule 300 mg PO QID #120 caps 02/12/23 05/30/24 Rx gabapentin 300 mg capsule 300 mg PO QID #120 caps 03/08/23 05/30/24 Rx diclofenac sodium 75 mg 75 mg PO BID #60 tabs 04/19/24 05/30/24 Rx tablet,delayed release pregabalin 150 mg capsule (Lyrica) 150 mg PO QID #120 caps 04/19/24 05/30/24 Rx New Prescriptions to Start Prescriptions: Allergies Allergy/AdvReac Type Severity Reaction Status Date / Time No Known Allergies Allergy Verified 05/16/24 08:33 Assessment and Plan *Assessment and plan (1) Myofascial pain: Status: Acute Category: Medical Code(s): M79.18 - Myalgia, other site (2) Right shoulder pain: Status: Acute Category: Medical Code(s): M25.511 - Pain in right shoulder Plan Patient is experiencing worsening pain in and around his right scapular area with point tenderness along his right trapezius, rhomboid and thoracic paraspinous/latissimus muscles. I did discuss with patient that he may benefit from trigger point injections into these locations. Risk and benefits were discussed with patient and he would like to proceed forward with this plan of care. I did tariff counsel the patient with him starting a blood thinner that it is not recommended to be on anti-inflammatories daily in it until we had clarification from his provider that he would need to stop this medication. I will make sure he has refills on his pregabalin and send in a new prescription of methocarbamol 500 mg 3 times daily as needed with a 2-week dose. Patient will be scheduled for trigger point injections of his right rhomboid, right trapezius and right thoracic paraspinous/latissimus muscles. These will be done without fluoroscopic or ultrasound guidance. Patient has been instructed to contact the clinic with any concerns before the next appointment. Dr. Campos has reviewed this note and agrees with this plan of care. This note was dictated using voice recognition software and make contain errors or omissions. All injections are used with Lidocaine, Bupivacaine and dexamethasone. Occasionally urine drug screen is needed to verify patient's compliance with our office pain contract. This is ordered based off specific treatments related to chronic pain with the potential to abuse certain medications.
[2024-07-12 10:27] VITALS: BP 116/71; PULSE 65; RESP 14; O2SAT 97; BMI 28.7
== END 2024-07-12 23:59 | disposition home or self-care (01) ==
PROVIDERS: PCP Pediatrics; Visit Provider Nurse Practitioner Family
DX: M79.18 Myalgia, other site (principal); M25.511 Pain in right shoulder; Z79.01 Long term (current) use of anticoagulants; Z79.899 Other long term (current) drug therapy
CPT/HCPCS: 99212; G0463

== ENCOUNTER 2024-07-28 10:09 | Day surgery (SDC) | payer BC, SELFPAY ==
[2024-07-28 10:16] VITALS: BP 140/65; PULSE 71; RESP 18; TEMP 36.7; O2SAT 95; BMI 28.7
--- NOTE | 2024-07-28 10:16 | EXP.PM.HP ---
History of Present Illness *Admission Date: 07/28/24 *Reason for visit:: Myofascial pain, trigger point *History of present illness: Same [facility] Disclaimer: The information contained in this section may have been updated after the patient was seen, as this information can be updated by other users. Medical History Prediabetes Seasonal allergies HTN (hypertension) HLD (hyperlipidemia) Surgical History H/O prostate biopsy Family History Other Diabetes Heart disease Hypertension Social History Smoking Status: Current every day smoker alcohol intake: never substance use type: denies use current occupational status: other Travel in the last 8 weeks?: None Have you lived/traveled outside US in past 30 days?: No Contact w/someone who lives/traveled outside US past 30 days?: No Exposure to someone with infectious disease in past 14 days?: No Do you have a fever (greater than 100.4 F or 38 C)?: No Have you tested positive for COVID-19?: No Exposed to someone with COVID-19 in past 14 days?: No Do you have a sore throat?: No Do you have a cough?: No Do you have any weakness?: No Do you have any diarrhea?: No Are you experiencing any unusual bleeding?: No Do you have any muscle aches/pain?: No Do you have any abdominal pain?: No Are you experiencing loss of taste or smell?: No Other Medical History Have you received the Flu Vaccine for this season: Yes Have you received the Pneumonia Vaccine: Yes Review of Systems Review of Systems Review of systems:: pertinent systems reviewed and negative unless documented below Review of systems (narrative): Review of Systems: General: No recent weight changes, no fever, no sleep disturbances Respiratory: No cough, no shortness of air, no recurring pulmonary infections Cardiovascular/peripheral vascular: No chest pain, no palpitations, no edema, no shortness of breath Gastrointestinal: No new onset incontinence, normal bowel movements reported Genitourinary: No new onset incontinence Musculoskeletal: Right shoulder pain Psychiatric: [Normal mood/affect] Neurological: [Denies weakness in extremities], [denies balance issues] Meds Home Medications and Allergies Home Medications ?Medication ?Instructions ?Recorded ?Confirmed ?Type cetirizine 10 mg tablet 10 mg PO DAILY ALLERGIES 07/01/22 07/28/24 History hydrochlorothiazide 25 mg tablet 25 mg PO DAILY Fluid 07/01/22 07/28/24 History losartan 100 mg tablet 100 mg PO DAILY BLOOD PRESSURE 07/01/22 07/28/24 History omeprazole 20 mg capsule,delayed 20 mg PO DAILY GERD 07/01/22 07/28/24 History release gabapentin 300 mg capsule 300 mg PO QID #120 caps 02/12/23 07/28/24 Rx gabapentin 300 mg capsule 300 mg PO QID #120 caps 03/08/23 07/28/24 Rx diclofenac sodium 75 mg 75 mg PO BID #60 tabs 04/19/24 07/28/24 Rx tablet,delayed release apixaban 5 mg tablet (Eliquis) 5 mg PO BID Blood Thinner 07/12/24 07/28/24 History methocarbamol 500 mg tablet 500 mg PO TID #42 tabs 07/12/24 07/28/24 Rx pregabalin 150 mg capsule (Lyrica) 150 mg PO QID #120 caps 07/12/24 07/28/24 Rx New Prescriptions to Start Prescriptions: Allergies Allergy/AdvReac Type Severity Reaction Status Date / Time No Known Allergies Allergy Verified 05/16/24 08:33 Exam Constitutional Constitutional: no acute distress *Routine HEENT Exam Head: Present normocephalic and atraumatic Eye: Present PERRL ENT: Present mucous membranes moist *Routine Neck Exam Neck: Present supple *Routine Respiratory Exam Respiratory: Present CTA bilaterally *Routine Cardiovascular Exam Cardiovascular: Present RRR *Routine Abdominal Exam Abdominal: Present soft *Routine Rectal Exam Rectal:: deferred *Routine Genitalia Exam Genitalia:: deferred Routine Back/Spine/Pelvis Exam Back/Spine: Present pain with flexion *Routine Skin Exam Skin: Present intact, dry and warm *Routine Neurological Exam Neurological: Present alert and oriented X3 Routine Psychiatric Exam Psychiatric: Present normal affect and normal thought process Assessment and Plan *Assessment and plan (1) Right shoulder pain: Status: Acute Category: Medical Code(s): M25.511 - Pain in right shoulder (2) Myofascial pain: Status: Acute Category: Medical Code(s): M79.18 - Myalgia, other site Plan Patient has been instructed to contact the clinic with any concerns before the next appointment. Dr. Campos has reviewed this note and agrees with this plan of care. This note was dictated using voice recognition software and make contain errors or omissions. All injections are used with Lidocaine, Bupivacaine and dexamethasone. Occasionally urine drug screen is needed to verify patient's compliance with our office pain contract. This is ordered based off specific treatments related to chronic pain with the potential to abuse certain medications.
--- NOTE | 2024-07-28 10:18 | EXP.PAIN.PRO ---
Procedure Date: 07/28/24 Time: 10:47 Anesthesiologist:: Yuli Hyatt APRN Complications:: None Pre-procedure Diagnosis:: Myofascial pain, right shoulder pain, degenerative disc disease of lumbar spine Post-procedure Diagnosis:: Same Indications for Procedure:: Patient is a pleasant 68-year-old male who presents today for trigger point injections. Today he rates his pain a 6 out of 10. He denies any new injuries or falls from our last visit. He does state he is still having that same pain that we saw him for last time there along his right shoulder and does radiate down to his mid back.Patient is prescribed pregabalin 150 mg 4 times a day, and methocarbamol 500 mg 3 times a day. He is also prescribed compounded cream from our office. He denies any side effects. His Ganesh has been reviewed and is appropriate. Physical Exam: General: Alert and oriented x3, no acute distress, pleasant and cooperative Lungs: Respirations even and unlabored, symmetrical chest expansion Eyes: PERRL Musculoskeletal: Flexion and extension of cervical [spine] somewhat guarded secondary to pain, [antalgic gait noted] point tenderness along right trapezius, rhomboid and thoracic paraspinous/latissimus muscle Neurological: Speech clear, no gross sensory deficit Procedure Details:: Patient did have noninvasive blood pressure cuff applied and pulse oximeter. Patient was placed in a sitting position and palpated along his right rhomboid, trapezius and right thoracic paraspinous/latissimus muscles. Areas of point tenderness were marked and using a sterile 25-gauge needle approximately 10 mL of 0.25% bupivacaine, 1% lidocaine and 10 mg dexamethasone were incrementally injected into his right rhomboid, trapezius and right thoracic paraspinous/latissimus muscles. Needle was removed and sterile bandages applied. Patient tolerated the procedure well with no complications and was discharged neurologically intact. Plan and Disposition:: Patient tolerated the procedure well with no complications and was discharged neurologically intact. Patient will return to clinic in 2 weeks for reevaluation of symptoms and plan of care. Patient has been instructed to contact the clinic with any concerns before the next appointment. Dr. Campos has reviewed this note and agrees with this plan of care. This note was dictated using voice recognition software and make contain errors or omissions. All injections are used with Lidocaine, Bupivacaine and dexamethasone. Occasionally urine drug screen is needed to verify patient's compliance with our office pain contract. This is ordered based off specific treatments related to chronic pain with the potential to abuse certain medications.
[2024-07-28] MEDS: LIDOCAINE 1% 5ML PF VIAL 5 ML (10:40)
[2024-07-28 10:41] VITALS: BP 123/61; PULSE 77; RESP 18; O2SAT 93
[2024-07-28] MEDS: DEXAMETHASONE 10MG/ML 1ML VIAL 10 MG (10:41)
[2024-07-28] MEDS: BUPIVACAINE 0.25% 10ML INJ 25 MG IJ (10:41)
[2024-07-28 10:42] VITALS: BP 123/61; PULSE 77; RESP 18; O2SAT 93
[2024-07-28 10:56] VITALS: BP 123/68; PULSE 66; RESP 18; O2SAT 96
== END 2024-07-28 10:56 | disposition home or self-care (01) ==
PROVIDERS: PCP Pediatrics; Visit Provider Nurse Practitioner Family
DX: M51.369 Other intervertebral disc degeneration, lumbar region without mention of lumbar back pain or lower extremity pain (principal); M25.511 Pain in right shoulder; M79.18 Myalgia, other site; E78.5 Hyperlipidemia, unspecified; I10 Essential (primary) hypertension; R73.03 Prediabetes; F17.200 Nicotine dependence, unspecified, uncomplicated; Z79.899 Other long term (current) drug therapy
CPT/HCPCS: 20553; J0665; J1100; J2003

== ENCOUNTER 2024-08-09 11:08 | Outpatient (POV) | payer BC, SELFPAY ==
--- OUTSIDE RECORDS SUMMARY | 2024-06-22 08:52 | XMS_ITS | Encounter Summary ---
Author Organization [employer] ([place], [place], [place], [place]) Address [address] [place] [address] Care Team Providers Care Oracle Erp Architect Name Role Phone Rip Aguilar MD Primary Care Provider [phone] Reason for Referral * CAT Scan (Routine) - Closed Specialty Diagnoses / Procedures Referred By Tamiaac azeb Referred To Contact Radiology Diagnoses Tobacco dependence due to cigarettes Screening for lung cancer Procedures CT LUNG SCREENING ANNUAL FOLLOWUP Jocelynn Cowan MD [address] [address] Phone: tel: fax: [facility] CT [facility] [address] [place] [phone] Phone: tel: fax: Referral ID Status Reason Start Date Expiration Date Visits Re quested Visits Authorized [id number] Closed 06/13/2024 07/12/2024 1 1 Reason for Visit * CAT Scan (Routine) - Closed Specialty Diagnoses / Procedures Referred By Contac azeb Referred To Contact Radiology Diagnoses Tobacco dependence due to cigarettes Screening for lung cancer Procedures CT LUNG SCREENING ANNUAL FOLLOWUP Jocelynn Cowan MD [address] [address] Phone: tel: fax: [facility] CT [facility] [address] [place] [phone] Phone: tel: fax: Referral ID Status Reason Start Date Expiration Date Visits Re quested Visits Authorized [id number] Closed 06/13/2024 07/12/2024 1 1 Encounter Details Date Type Department Care Team (Late st Contact Info) Description 06/22/2024 8:52 AM EDT Hospital Encounter [facility] Imaging [address] [place] [address] Jocelynn Cowan MD [address] [place] [address] Tobacco dependence due to cigarettes; Screening for lung cancer Discharge Disposition: Home or Self Care Social History Tobacco Use Types Packs/Day Years Used Date Smoking Tobacco: Every Day Cigarettes Smokeless Tobacco: Current Comments:Smokes ppd or more. Occasional chewing tobacco Alcohol Use Standard Drinks/Week Comments Never 0 (1 standard drink = 0.6 oz pur e alcohol) [facility] - Mental Health Answer Date Recorde d Little interest or pleasure in doing things Not at all 12/22/2023 Feeling down, depressed, or hopeless Not at all 12/22/2023 Feeling of Stress Not on file 12/22/2023 [facility] Intimate Partner Violence Answer Da te Recorded Within the last year, have y ou been afraid of your partner or ex-partner? No 12/22/2023 Within the last year, have y ou been humiliated or emotionally abused in other ways by your partner or ex-partner? No Within the last year, have y ou been kicked, hit, slapped, or otherwise physically hurt by your partner or ex-partner? No 12/22/2023 Within the last year, have y ou been raped or forced to have any kind of sexual activity by your partner or ex-partner? No 12/22/2023 Family and Community Support Answer Kal e Recorded Help with Day to Day Activities Not on file 02/25/2023 Feeling Lonely or Isolated Not on file 02/25 Educational Attainment Answer Date Edgardo rded Speak language other than [place] at home Not on file 02/25/2023 Want help with school or training Not on file 02/25/2023 Substance Use Answer Date Recorded Used prescription meds for non-medical reasons N ot on file 02/25/2023 Used illegal drugs past 12 months Not on file 02/25/2023 Sex and Gender Information Value Date Recorded Sex Assigned at Male 11/16/2022 1:34 PM CDT Legal Sex Male 5:40 PM CDT Gender Identity Male 11/16/2022 1:34 PM CDT Sexual Orientation Straight 11/16/2022 1: 34 PM CDT documented as of this encounter Medications at Time of Discharge amLODIPine (NORVASC) 5 MG tablet Take 1 tablet (5 mg total) by mouth nightly. 11/17/2023 aspirin 81 MG EC tablet Take 1 tablet (81 mg total) by mouth daily. cetirizine (ZyrTEC) 10 MG tablet Take 1 tablet (10 mg total) by mouth daily. 11/17/2023 chromium picolinate 1,000 mcg tab Take 1 tablet by mouth daily. cyanocobalamin (vitamin B-12) 1000 MCG tablet Take 1 tablet (1,000 mcg total) by mouth daily. diclofenac sodium (VOLTAREN) 75 MG EC tablet Take 1 tablet (75 mg total) by mouth 2 (two) times daily. 01/01/2024 Eliquis 5 MG tablet Take 1 tablet (5 mg total) by mouth 2 (two) times daily. 06/16/2024 fluticasone propionate (FLONASE) 50 mcg/actuation nasal spray Administer 2 sprays into affected nostril(s) 2 (two) times daily. 04/10/2024 hydroCHLOROthiaz elizabeth (HYDRODIURIL) 25 MG tablet Take 1 tablet (25 mg total) by mouth daily. 04/10/2024 latanoprost (XALATAN) 0.005 % ophthalmic solution Administer 1 drop into both eyes nightly. 12/07/2023 losartan (COZAAR) 100 MG tablet Take 1 tablet (100 mg total) by mouth daily. 11/17/2023 magnesium glycinate (Mag Glycinate) 100 mg tab Take 1 tablet by mouth nightly. omeprazole (PriLOSEC) 20 MG capsule Take 2 capsules (40 mg total) by mouth 2 (two) times daily. 11/17/2023 pregabalin (LYRICA) 150 MG capsule Take 1 capsule (150 mg total) by mouth 3 (three) times daily Can take up to 4x/day as directed . rosuvastatin (CRESTOR) 20 MG tablet Take 1 tablet (20 mg total) by mouth nightly. 11/17/2023 tamsulosin (FLOMAX) 0.4 mg cap 24 hr capsule Take 1 capsule (0.4 mg total) by mouth daily. 04/10/2024 traZODone (DESYREL) 50 MG tablet Take 4 tablets (200 mg total) by mouth nightly. 11/17/2023 documented as of this encounter Miscellaneous Notes * Result Encounter Note - Jocelynn Cowan MD - 06/22/2024 9:00 AM EDT Noted, patient has appointment scheduled and results can be reviewed at the visit. documented in this encounter Plan of Treatment Upcoming Encounters Date Type Department Care Team (Late st Contact Info) Description 09/20/2024 10:45 AM EDT Office Visit [facility] Pulm & Critical Care Medicine [address] [place] [address] Jocelynn Cowan MD [address] [place], [place] [id number] documented as of this encounter Procedures Procedure Name Priority Date/Time Associated Diagnosis Comments CT LUNG SCREENING ANNUAL FOLLOWUP Routine 06/22/2024 10:04 AM EDT Tobacco dependence due to cigarettes Screening for lung cancer documented in this encounter Results * CT LUNG SCREENING ANNUAL FOLLOWUP (06/22/2024 10:04 AM EDT) Anatomical Region Laterality Modality Chest, Lung Computed Tomogra phy (CT) 06/22/2024 11:5 5 AM EDT Impressions 06/22/2024 12:21 PM EDT Bilateral 2.5mm pulmonary nodules. Lung-RADS 2: Benign appearance or behavior: Nodules with a very low likelihood of becoming a clinically active cancer due to size or lack of growth. Continue annual screening with low-dose chest CT in 12 months. Probability of malignancy: <1%. Coronary artery calcifications. Lung-RADS S: Other: Clinically significant or potentially clinically significant findings (non-lung cancer). Images reviewed, interpreted, and dictated by Dr. Camron Hwang. Transcribed by Gwen Youngblood PA-C. Narrative 06/22/2024 12:[address] SCAN OF THE CHEST 06/22/2024 9:56 AM HISTORY: Screening CT. Current smoker with a 64 pack-year smoking history. COMPARISON: November 16, 2022. PROCEDURE: Axial images were obtained from the lung apex to the mid abdomen by computed tomography. Low-dose protocol was utilized. The CTDIvol is 1.2 mGy. The DLP is 54.2 mGy*cm. This study was performed with techniques to keep radiation doses as low as reasonably achievable, (ALARA). Individualized dose reduction techniques using automated exposure control or adjustment of mA and/or kV according to the patient size were employed. FINDINGS: CHEST: There is no axillary adenopathy. There is no hilar or mediastinal adenopathy. Heart size is normal. There are moderate vascular calcifications of the aorta. There is no aneurysm. There is multivessel mild coronary artery calcifications noted. There is no pericardial or pleural effusion. Limited images of the upper abdomen are unremarkable. There is severe emphysema. There are apical fibrotic changes noted. There is a 2.5 mm pulmonary nodule the posterior left upper lobe identified on image 34 of series 601 that is unchanged. There is a 2.5 mm pulmonary nodule in the right lower lobe identified on image 58 of series 601 that is unchanged. us Jocelynn Cowan MD IM CT ORDERABLES Final Result documented in this encounter Visit Diagnoses Diagnosis Tobacco dependence due to cigarettes Screening for lung cancer documented in this encounter Care Teams Oracle Erp Architect Relationship Specialty Start Date End Date Rip Aguilar MD [address] [place] [address] PCP - General General Internal Medicine 11/11/22 documented as of this encounter
--- OUTSIDE RECORDS SUMMARY | 2024-06-22 08:53 | XMS_ITS | Encounter Summary ---
Author Organization [employer] ([place], [place], [place], [place]) Address [address] [place] [address] Care Team Providers Care Audio/Visual Manager Name Role Phone Rip Aguilar MD Primary Care Provider [phone] Reason for Referral * Other (Routine) - Closed Specialty Diagnoses / Procedures Referred By Contac t Referred To Contact Pulmonology Diagnoses Chronic cough Dyspnea on exertion Procedures Pulmonary Function Testing Jocelynn Cowan MD [address] [address] Phone: tel: fax: [facility] [address] [place] [phone] Phone: tel: fax: Referral ID Status Reason Start Date Expiration Date Visits Re quested Visits Authorized [id number] Closed 05/30/2024 05/30/2025 1 1 Reason for Visit * Other (Routine) - Closed Specialty Diagnoses / Procedures Referred By Contac t Referred To Contact Pulmonology Diagnoses Chronic cough Dyspnea on exertion Procedures Pulmonary Function Testing Jocelynn Cowan MD [address] [address] Phone: tel: fax: [facility] [address] [place] [phone] Phone: tel: fax: Referral ID Status Reason Start Date Expiration Date Visits Re quested Visits Authorized [id number] Closed 05/30/2024 05/30/2025 1 1 Encounter Details Date Type Department Care Team (Late st Contact Info) Description 06/22/2024 8:53 AM EDT - 06/22/2024 11:59 PM EDT Hospital Encounter [facility] [address] [place] [phone] Jocelynn Cowan MD [address] [place] [phone] Chronic cough; Dyspnea on exertion Discharge Disposition: Home or Self Care Social History Tobacco Use Types Packs/Day Years Used Date Smoking Tobacco: Every Day Cigarettes Smokeless Tobacco: Current Comments:Smokes ppd or more. Occasional chewing tobacco Alcohol Use Standard Drinks/Week Comments Never 0 (1 standard drink = 0.6 oz pur e alcohol) [facility] - Mental Health Answer Date Recorde d [...] Date Edgardo rded Speak language other than South African at home Not on file 02/25/2023 Want [...] Note - Jocelynn Cowan MD - 06/22/2024 10:00 AM EDT Noted, patient has appointment scheduled and results can be reviewed at the visit. documented in this encounter Plan of Treatment Upcoming Encounters Date Type Department Care Team (Late st Contact Info) Description 09/20/2024 10:45 AM EDT Office Visit [facility] Pulm & Critical Care Medicine [address] [place] [address] Jocelynn Cowan MD [address] [place], [place] [id number] documented as of this encounter Procedures Procedure Name Priority Date/Time Associated Diagnosis Comments FS_MODEL_IP PFT Routine 06/22/2024 10:04 AM EDT Chronic cough Dyspnea on exertion documented in this encounter Results * Pulmonary Function Testing (06/22/2024 10:04 AM EDT) Anatomical Region Laterality Modality Other Narrative 06/22/2024 1:28 PM EDT Images from the original result were not included. Mild COPD/asthma Mod small airways disease Jocelynn Cowan MD PFT ORDERABLES Final Result documented in this encounter Visit Diagnoses Diagnosis Chronic cough Cough Dyspnea on exertion Other dyspnea and respiratory abnormality documented in this encounter Administered Medications Inactive Administered Medications - up to 3 most recent administrations Medication Order MAR Action Action Date Dose Rate Site albuterol 2.5 mg /3 mL (0.083 %) nebulizer solution 2.5 mg 2.5 mg Once, nebulization, On Yolanda 06/22/24 at 0930, For 1 dose, RESPIRATORY THERAPY TREATMENT , What is the respiratory therapy Modality? Small volume Nebulization Given 06/22/2024 9:33 AM EDT 2.5 mg documented in this encounter Care Teams Audio/Visual Manager Relationship Specialty Start Date End Date Rip Aguilar MD [address] [place] [address] PCP - General General Internal Medicine 11/11/22 documented as of this encounter
--- OUTSIDE RECORDS SUMMARY | 2024-06-29 10:45 | XMS_ITS | Encounter Summary ---
Author Organization [employer] ([place], [place]) Address [address] [place] [address] Care Team Providers Care Studio Control Operator Name Role Phone Rip Aguilar MD Primary Care Provider [phone] Reason for Visit * Reason Comments Follow-up Encounter Details Date Type Department Care Team (Late st Contact Info) Description 06/29/2024 10:45 AM EDT Office Visit [facility] Pulm & Critical Care Medicine [address] [place] [address] [place] [address] Jocelynn Ruvalcaba MD [address] [place] [address] (Primary Dx); Abnormal pulmonary function test; Chronic obstructive pulmonary disease, unspecified COPD type (HCC); Chronic cough; Dyspnea on exertion; Multiple lung nodules on CT; Tobacco dependence due to cigarettes; Allergies; At risk for obstructive sleep apnea; Screening for lung cancer; Snoring Social History Tobacco Use Types Packs/Day Years [...] Date Edgardo rded Speak language other than Austrian at home Not on file 02/25/2023 Want [...] PM CDT documented as of this encounter Last Filed Vital Signs Vital Sign Reading Time Taken Comments Blood Pressure 120/69 06/29/2024 10:46 AM EDT Pulse 87 06/29/2024 10:46 AM EDT Temperature - - Respiratory Rate 16 06/29/2024 10:46 AM EDT Oxygen Saturation 90% 06/29/2024 10:46 AM EDT ra Inhaled Oxygen Concentration - - Weight 93.4 kg (206 lb) 06/29/2024 10:46 AM EDT Height 177.8 cm (5' 10 ) 06/29/2024 10:46 AM EDT Body Mass Index 29.56 06/29/2024 10:46 AM EDT documented in this encounter Progress Notes * Jocelynn Ruvalcaba MD - 06/29/2024 10:45 AM EDT Ousmane Damian is 68 y.o. year old male presents today for follow up for Chief Complaint Patient presents with Follow-up Chronic respiratory diseases: - COPD - Chronic cough - Dyspnea on exertion - Lung nodules Smoking history: Active cigarette smoker for 50+ years he used to smoke 2 packs/day and started cutting down in December 2023. Now smoking about half a pack per day Respiratory medications: None PFTs: PFTs 06/22/2024: Moderate obstructive defect with FEV1 66%. Mild restrictive defect. Signs of air trapping. 6-minute walk test 06/22/2024: Lowest O2 sat noted was 91% on room air on ambulation Radiologic studies: LDCT 11/16/2022: No acute process LDCT 06/22/2024: Severe emphysema. Apical fibrotic changes. Stable bilateral 2.5 mm nodules. Other medical problems: Hypertension Diabetes HPI: Routine follow up today for PFTs and CT chest results No new respiratory symptoms Current Outpatient Medications Medication Instructions amLODIPine (NORVASC) 5 mg, Every Night aspirin 81 mg, Daily cetirizine (ZYRTEC) 10 mg, Daily chromium picolinate 1,000 mcg tab 1 tablet, Daily cyanocobalamin (VITAMIN B-12) 1,000 mcg, Daily diclofenac sodium (VOLTAREN) 75 mg, oral, 2 times daily Eliquis 5 MG tablet 1 tablet, 2 times daily fluticasone propionate (FLONASE) 50 mcg/actuation nasal spray 2 sprays, 2 times daily hydroCHLOROthiazide (HYDRODIURIL) 25 mg, Daily latanoprost (XALATAN) 0.005 % ophthalmic solution 1 drop, Every Night losartan (COZAAR) 100 mg, Daily magnesium glycinate (Mag Glycinate) 100 mg tab 1 tablet, Every Night omeprazole (PRILOSEC) 40 mg, 2 times daily pregabalin (LYRICA) 150 mg, 3 times daily rosuvastatin (CRESTOR) 20 mg, Every Night tamsulosin (FLOMAX) 0.4 mg, Daily traZODone (DESYREL) 200 mg, Every Night umeclidinium-vilanteroL (Anoro Ellipta) 62.5-25 mcg/actuation dsdv 1 puff, inhalation, Daily No Known Allergies Patients medications, allergies, social, medical and surgical history were obtained from medical records. 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 GERD (gastroesophageal reflux disease) Hard of hearing bilateral hearing aids High cholesterol Hypertension Lumbar degenerative disc disease Pre-diabetes Shortness of breath on exertion Spinal stenosis of lumbar region Past Surgical History: Procedure Laterality Date FUSION,TRANSFORAMINAL LUMBAR INTERBODY (TLIF) N/A 12/29/2023 Procedure: (L3-L4 & L4-L5 PLIF USING GE); Surgeon: Lon Dixon MD; Location: [facility]; Service: Neurological Surgery; Laterality: N/A; IN 0600, 2.5 HR (A), PASS, USING GE KNEE SCOPE Left melanoma removed Left from left ear and reconstruction Social History Socioeconomic History Marital status: Spouse name: Not on file Number of children: Not on file Years of education: Not on file Highest education level: Not on file Occupational History Not on file Tobacco Use Smoking status: Every Day Types: Cigarettes Smokeless tobacco: Current Tobacco comments: Smokes ppd or more. Occasional chewing tobacco Substance and Sexual Activity Alcohol use: Never Drug use: Never Sexual activity: Not on file Other Topics Concern Not on file Social History Narrative Not on file Social Drivers of Health Financial Resource Strain: Not on file Food Insecurity: Not on file Transportation Needs: Not on file Physical Activity: Not on file Stress: Not on file (12/15/2023) Social Connections: Low Risk (02/25/2023) Family and Community Support Help with Day to Day Activities: Not on file Feeling Lonely or Isolated: Not on file Intimate Partner Violence: Not At Risk (12/22/2023) CHI Intimate Partner Violence Fear of Current or Ex-Partner: No Emotionally Abused: No Physically Abused: No Sexually Abused: No Housing Stability: Low Risk (02/25/2023) Housing Stability Living situation today: Not on file Living situation problems: Not on file No family history on file. Immunization History Administered Date(s) Administered COVID-19 VACCINE MRNA (MODERNA/BIVALENT)(DARK BLUE CAP W/STRAUSS)([id number] & [id number]) 12/06/2021 REVIEW OF SYSTEMS: Complete 12 point ROS non-contributory except complaints described in HPI or other sections of thisnote. PHYSICAL EXAM: VITAL SIGNS: BP 120/69 (BP Location: Left arm, Patient Position: Sitting, Cuff Size: Large Adult Long) Pulse 87 Resp 16 Ht 1.778 m (5' 10 ) Wt 93.4 kg (206 lb) SpO2 90% Comment: ra BMI 29.56 kg/m?? Physical Exam Constitutional: Appearance: Normal appearance. HENT: Head: Normocephalic and atraumatic. Nose: Nose normal. Eyes: Extraocular Movements: Extraocular movements intact. Cardiovascular: Rate and Rhythm: Normal rate and regular rhythm. Pulmonary: Effort: Pulmonary effort is normal. No respiratory distress. Breath sounds: Normal breath sounds. No wheezing or rales. Abdominal: General: Bowel sounds are normal. Palpations: Abdomen is soft. Musculoskeletal: General: Normal range of motion. Cervical back: Normal range of motion. Skin: General: Skin is warm and dry. Neurological: Mental Status: He is alert and oriented to person, place, and time. Psychiatric: Mood and Affect: Mood normal. Behavior: Behavior normal. Imaging: Results for orders placed during the hospital encounter of 06/22/24 CT LUNG SCREENING ANNUAL FOLLOWUP Narrative CT SCAN OF THE CHEST 06/22/2024 9:56 [...] 58 of series 601 that is unchanged. Impression Bilateral 2.5mm pulmonary nodules. Lung-RADS 2: Benign [...] Camron Hwang. Transcribed by Gwen Youngblood PA-C. Results for orders placed during the hospital encounter of 11/16/22 CT LUNG SCREENING ANNUAL FOLLOWUP Narrative CT SCAN OF THE CHEST 11/16/2022 2:59 PM HISTORY: Current smoker with 60 pack-year smoking history. COMPARISON: June 05, 2020. PROCEDURE: Axial images were obtained from the lung apex to the mid abdomen by computed tomography. Low dose protocol was utilized. The CTDIvol is 1.29 mGy. The DLP is 52.98 mGy-cm. This study was performed with techniques to keep radiation doses as low as reasonably achievable, (ALARA). Individualized dose reduction techniques using automated exposure control or adjustment of mA and/or kV according to the patient size were employed. FINDINGS: CHEST: There is no axillary adenopathy. There is no hilar or mediastinal adenopathy. The heart is proper size. There is no pericardial or pleural effusion. Limited images of the upper abdomen are unremarkable. No suspicious infiltrate or nodule identified. There are emphysematous changes. Impression No acute process. Lung RADS category 1. 12 month low-dose chest CT recommended. Films reviewed, interpreted, and dictated by Dr. Whitaker. Transcribed by Ele Downing PA-C. No results found for this or any previous visit. PFT's: Results for orders placed during the hospital encounter of 06/22/24 Pulmonary Function Testing Narrative Images from the original result were not included. Mild COPD/asthma Mod small airways disease ECHO: Echo Results (last 7 days) No results found for the last 168 hours. Assessment: Diagnoses and all orders for this visit: Abnormal chest CT Abnormal pulmonary function test Chronic obstructive pulmonary disease, unspecified COPD type (HCC) Chronic cough Dyspnea on exertion Multiple lung nodules on CT Tobacco dependence due to cigarettes Allergies At risk for obstructive sleep apnea Screening for lung cancer Snoring Other orders - umeclidinium-vilanteroL (Anoro Ellipta) 62.5-25 mcg/actuation dsdv; Inhale 1 puff by mouth daily for 30 days. Plan: -COPD Decent CT chest results discussed with the patient I will start him on LABA/LAMA, Anoro inhaler once a day Recommend annual influenza and pneumonia vaccinations Avoid smoking Avoid ill contacts and allergens Regular physical activity -Abnormal CT chest Tiny 2.5 mm bilateral nodules those are stable since November 2022. Likely postinflammatory/benign. -Lung cancer screening Patient qualifies for annual lung cancer screening. Last LDCT results discussed with patient We will do next low-dose CT chest in June 2025. - At risk of obstructive sleep apnea had reported snoring and apneic events while sleeping. Patient is not interested in sleep study or referral to sleep center. Recommended and encouraged to have polysomnogram done. He will think about it -Tobacco use Smoking cessation counseling was done. Patient was counseled on the harms of smoking, including increased risk of lung disease, worsening of respiratory symptoms, cardiovascular disease and cancer. Spent more than 3 minutes discussing risks of smoking and smoking cessation. The above assessment and plan was discussed in detail with patient. Patient verbalized understanding and agreement of plan. The medical records were reviewed including lab results, reports and imaging studies. Chest imaging were reviewed independent of the radiologist report. Medication side effects reviewed. Return in about 3 months (around 09/29/2024). or sooner if needed Walteron disclaimer: Part of this encounter note is an electronic communication engineer/translation of spoken language to printed text. The electronic translation of spoken language may permit erroneous, or at times, nonsensicalwords or phrases to be inadvertently transcribed; Although I have reviewed the note for such errors, some may still exist. Electronically signed by Jocelynn Ruvalcaba MD, 10:44 AM, 06/29/2024 documented in this encounter Miscellaneous Notes * Addendum Note - Jocelynn Ruvalcaba MD - 06/29/2024 10:45 AM EDTAddended by: JOCELYNN RUVALCABA on: 06/29/2024 03:39 PM Modules accepted: Orders documented in this encounter Plan of Treatment Upcoming Encounters Date Type Department Care Team (Late st Contact Info) Description 09/20/2024 10:45 AM EDT Office Visit [facility] Pulm & Critical Care Medicine [address] [facility] [address] [place] [phone] Jocelynn Ruvalcaba MD [address] [facility] [address] [place] [phone] documented as of this encounter Visit Diagnoses Diagnosis Abnormal chest CT- Primary Nonspecific (abnormal) findings on radiological and other examination of other intrathoracic organs Abnormal pulmonary function test Nonspecific abnormal results of pulmonary system function study Chronic obstructive pulmonary disease, unspecified COPD type (HCC) Chronic cough Cough Dyspnea on exertion Other dyspnea and respiratory abnormality Multiple lung nodules on CT Tobacco dependence due to cigarettes Allergies At risk for obstructive sleep apnea Screening for lung cancer Snoring Other dyspnea and respiratory abnormality documented in this encounter Care Teams Studio Control Operator Relationship Specialty Start Date End Date Rip Aguilar MD [address] [place] [address] PCP - General General Internal Medicine 11/11/22 documented as of this encounter
--- OUTSIDE RECORDS SUMMARY | 2024-08-09 11:13 | XMS_ITS | Encounter Summary ---
Author Organization [employer] ([place], [place], [place], [place]) Address [address] [place] [address] Care Team Providers Care Cane Furniture Maker Name Role Phone Rip Aguilar MD Primary Care Provider Encounter Details Date Type Department Care Team (Latest Contact Info) Description 06/29/2024 Travel Social History Tobacco Use Types Packs/Day Years Used Date Smoking Tobacco: Every Day Cigarettes Smokeless Tobacco: Current Comments:Smokes ppd or more. Occasional chewing tobacco Alcohol Use Standard Drinks/Week Comments Never 0 (1 standard drink = 0.6 oz pur e alcohol) [facility] - Mental Health Answer Date Recorde d [...] Date Edgardo rded Speak language other than [place] at home Not on file 02/25/2023 Want [...] PM CDT documented as of this encounter Plan of Treatment Upcoming Encounters Date Type Department Care Team (Late st Contact Info) Description 09/20/2024 10:45 AM EDT Office Visit [facility] Pulm & Critical Care Medicine [address] [place] [address] Jocelynn Cowan MD [address] [place] [address] documented as of this encounter Visit Diagnoses Not on filedocumented in this encounter Care Teams Cane Furniture Maker Relationship Specialty Start Date End Date Rip Aguilar MD [address] [place] [address] PCP - General General Internal Medicine 11/11/22 documented as of this encounter
--- OUTSIDE RECORDS SUMMARY | 2024-08-09 11:13 | XMS_ITS | Encounter Summary ---
Author Organization [employer] ([place], [place], [place], [place]) Address [address] [place] [address] Care Team Providers Care Stage Set Up Worker Name Role Phone Rip Aguilar MD Primary Care Provider [phone] Encounter Details Date Type Department Care Team (Latest Contact Info) Description 06/22/2024 Travel Social History Tobacco Use Types Packs/Day Years Used Date Smoking Tobacco: Every Day Cigarettes Smokeless Tobacco: Current Comments:Smokes ppd or more. Occasional chewing tobacco Alcohol Use Standard Drinks/Week Comments Never 0 (1 standard drink = 0.6 oz pur e alcohol) [facility] - Mental Health Answer Date Recorde [...] Date Edgardo rded Speak language other than Citizen [place] at home Not on file 02/25/2023 Want [...] Description 09/20/2024 10:45 AM EDT Office Visit [facility] Pulm & Critical Care Medicine [address] [place] [address] Jocelynn Cowan MD [address] [place] [address] documented as of this encounter Visit Diagnoses Not on filedocumented in this encounter Care Teams Stage Set Up Worker Relationship Specialty Start Date End Date Rip Aguilar MD [address] [place] [address] PCP - General General Internal Medicine 11/11/22 documented as of this encounter
--- OUTSIDE RECORDS SUMMARY | 2024-08-09 11:13 | XMS_ITS | Clinical Summary ---
Author Organization Healthcare Address [address] [place] [address] Care Team Providers Care Contract Processor Name Role Phone Pcp, No Primary Care Provider Unavailabl e Allergies No known active allergies Medications cetirizine (ZyrTEC) 10 MG tablet 1 (one) time each day. 2 Active fluticasone (Flonase) 50 MCG/ACT nasal spray Administer 2 sprays into affected nostril(s). 2 Active hydroCHLOROthia zide (HYDRODiuril) 25 MG tablet 1 (one) time each day. Active losartan (Cozaar) 100 MG tablet 1 (one) time each day. 2 Active omeprazole (PriLOSEC) [address] capsule 1 capsule 1 (one) time each day. 2 Active rosuvastatin (Crestor) 20 MG tablet Take 20 mg by mouth. 2 Active traZODone (Desyrel) 50 MG tablet Take 4 tablets each night before bed 2 Active cholecalciferol (Vitamin D-3) 50 MCG (1999) capsule Vitamin D3 Active Active Problems Problem Noted Date Diagnosed Date Basal cell carcinoma of skin of left ear and external auricular canal 01/19/2022 Overview (01/19/2022): Added automatically from request for surgery [id number] Family History Medical History Relation Name Comments Conversions - Other Father cerebral infarction Hypertension Father Cardiac disorder Mother Diabetes Mother Conversions - Other Other deafness or hearing loss Relation Name Status Comments Father Mother Other Social History Tobacco Use Types Packs/Day Years Used Date Smoking Tobacco: Every Day Cigarettes Smokeless Tobacco: Current Tobacco Cessation:Ready to Q uit: Not Asked; Counseling Given: Not Answered Alcohol Use Standard Drinks/Week Comments Not Currently 0 (1 standard drink = 0.6 oz pur e alcohol) Sex and Gender Information Value Date Recorded Sex Assigned at Not on file Legal Sex Male 8:56 PM EDT Gender Identity Not on file Sexual Orientation Not on file Last Filed Vital Signs Vital Sign Reading Time Taken Comments Blood Pressure 140/87 09/23/2022 10:04 AM EDT Pulse 92 09/23/2022 10:04 AM EDT Temperature 37.6 C (99.7 F) 09/23/2022 10:04 AM EDT Respiratory Rate 20 01/20/2022 4:00 PM EST Oxygen Saturation 92% 01/20/2022 4:00 PM EST Inhaled Oxygen Concentration - - Weight 85.3 kg (188 lb) 09/23/2022 10:04 AM EDT Height 177.8 cm (5' 10 ) 09/23/2022 10:04 AM EDT Body Mass Index 26.98 09/23/2022 10:04 AM EDT Plan of Treatment Health Maintenance Due Date Last Done Comments [facility]-Depression Screening 1954 [facility]-Hepatitis C Screening 1954 [facility]-/Child/Adol SDOH Screenings 1955 [facility]- SDOH Screenings 1972 [facility]-Adult SDOH Screenings 1972 [facility]-DTaP,Tdap,and Td Vaccines (1 - Tdap) 1973 CT Colonography 08/09/1999 Colonoscopy 08/09/1999 FIT-DNA 08/09/1999 FIT 08/09/1999 FOBT 08/09/1999 Sigmoidoscopy 08/09/1999 [facility]-Colorectal Cancer Screening 08/09/1999 [facility]-Pneumococcal Vaccine: 50+ Years (2 of 2 - PPSV23) 02/03/2020 12/09/2019 [id number] Vaccine (6 - season) 2023 12/06/2021, 06/07/2021, 01/05/2021, Additional history exists [facility]-Influenza Vaccine (#1) 10/09/202412/21, 12/26/2019, 12/09/2019, Additional history exists [facility]-RSV Vaccine: 60+ Years or (1 - 1-dose 75+ series) 2029 [facility]-Zoster Vaccines Completed 06/12/2020, 01/12/2020, 10/10/2014 [facility]-Obesity Intervention Completed 023, 03/11/2022, 01/28/2022, Additional history exists HPV Vaccines Aged Out No longer eligi ble based on patient's age to complete this topic [facility]-HIB Vaccines Aged Out No longer e ligible based on patient's age to complete this topic [facility]-Hepatitis A Vaccines Aged Out No longer eligible based on patient's age to complete this topic [facility]-IPV Vaccines Aged Out No longer e ligible based on patient's age to complete this topic [facility]-Rotavirus Vaccines Aged Out No lo nger eligible based on patient's age to complete this topic Insurance [address] [id number] [place] [address] Care Teams Contract Processor Relationship Specialty Start Date [place] [address] PCP - General Family Medicine 01/07/22
--- OUTSIDE RECORDS SUMMARY | 2024-08-09 11:13 | XMS_ITS | Encounter Summary ---
Author Organization [employer] ([place], [place], [place], [place]) Address [address] [place] [address] Care Team Providers Care Durable Medical Equipment Technician Name Role Phone Rip Aguilar MD Primary Care Provider [phone] Reason for Referral * CAT Scan (Routine) - Closed Specialty Diagnoses / Procedures Referred By Contac t Referred To Contact Radiology Diagnoses Cigarette smoker Procedures CT LUNG SCREENING ANNUAL FOLLOWUP Rip Aguilar MD [facility] [place] [address] Phone: tel: fax: [facility] CT Imaging [address] [place] [phone] Phone: tel: fax: Referral ID Status Reason Start Date Expiration Date Visits Re quested Visits Authorized [id number] Closed 11/02/2022 12/01/2022 1 1 Encounter Details Date Type Department Care Team (Late st Contact Info) Description 11/02/2022 Outside Orders [facility] [address] [place] [phone] Rip Aguilar MD [facility] [place] [address] Cigarette smoker (Primary Dx) Social History Tobacco Use Types Packs/Day Years Used Date Smoking Tobacco: Never Assessed C - Mental Health Answer Date Recorde d [...] Date Edgardo rded Speak language other than Portuguese at home Not on file 02/25/2023 Want [...] Orientation Straight 11/16/2022 1: 34 PM CDT COVID-19 Exposure Response Date Recorded In the last 10 days, have yo u been in contact with someone who was confirmed or suspected to have Coronavirus/COVID-19? No / Unsure 11/16/2022 2:17 PM EDT documented as of this encounter Plan of Treatment Upcoming Encounters Date Type Department Care Team (Late st Contact Info) Description 09/20/2024 10:45 AM EDT Office Visit [facility] Pulm & Critical Care Medicine [address] [place] [address] [address] Jocelynn Cowan MD [address] [facility] [address] [place] [id number] documented as of this encounter Results * CT LUNG SCREENING ANNUAL FOLLOWUP (11/16/2022 3:05 PM EDT) Anatomical Region Laterality Modality Chest, Lung Computed Tomogra phy (CT) 11/16/2022 4:17 PM EDT Impressions 11/16/2022 4:19 PM EDT No acute process. Lung RADS category 1. 12 month low-dose chest CT recommended. Films reviewed, interpreted, and dictated by Dr. Whitaker. Transcribed by Ele Downing PA-C. Narrative 11/16/2022 4:[address] SCAN OF THE CHEST 11/16/2022 2:59 [...] or nodule identified. There are emphysematous changes. Rip Aguilar MD IMG CT ORDERABLES Final Result documented in this encounter Visit Diagnoses Diagnosis Cigarette smoker- Primary Tobacco use disorder Cigarette smoker Tobacco use disorder documented in this encounter Care Teams Durable Medical Equipment Technician Relationship Specialty Start Date End Date Rip Aguilar MD [address] [place] [address] PCP - General General Internal Medicine 11/11/22 documented as of this encounter
--- OUTSIDE RECORDS SUMMARY | 2024-08-09 11:13 | XMS_ITS | Encounter Summary ---
Author Organization [employer] ([place], [place], [place], [place]) Address [address] [place] [address] Care Team Providers Care Registered Nursing Professor Name Role Phone Rip Aguilar MD Primary Care Provider [phone] Reason for Visit * Reason Onset Date Comments Medication Management 06/29/2024 Encounter Details Date Type Department Care Team (Late st Contact Info) Description 06/29/2024 Telephone [facility] Pulm & Critical Care Medicine [address] [place] [address] Jocelynn Cowan MD [address] [place] [address] Medication Management Social History Tobacco Use Types Packs/Day Years Used Date Smoking Tobacco: Every Day Cigarettes Smokeless Tobacco: Current Comments:Smokes ppd or more. Occasional chewing tobacco Alcohol Use Standard Drinks/Week Comments Never 0 (1 standard drink = 0.6 oz pur e alcohol) [facility] - Mental Health Answer Date Recorde [...] Date Edgardo rded Speak language other than Bengali at home Not on file 02/25/2023 Want [...] PM CDT documented as of this encounter Miscellaneous Notes * Telephone Encounter - Natalie Crowley CMA - 06/29/2024 3:39 PM EDT Spoke with Dr. Cowan, rx for albuterol was supposed to be sent in. New rx sent in, PT notified. Apologies for oversight, no further questions or concerns at this time. * Telephone Encounter - Humera Booker - 06/29/2024 3:32 PM EDT Per voicemail: Patient states he was to receive 2 prescriptions and the pharmacy only received 1. documented in this encounter Plan of Treatment Upcoming Encounters Date Type Department Care Team (Late st Contact Info) Description 09/20/2024 10:45 AM EDT Office Visit [facility] Pulm & Critical Care Medicine [address] [place] [address] [place] [address] Jocelynn Cowan MD [address] [phone] documented as of this encounter Visit Diagnoses Not on filedocumented in this encounter Care Teams Registered Nursing Professor Relationship Specialty Start Date End Date Rip Aguilar MD [address] [place] [address] PCP - General General Internal Medicine 11/11/22 documented as of this encounter
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
--- OUTSIDE RECORDS SUMMARY | 2024-08-09 11:14 | XMS_ITS | Continuity of Care Document ---
Author Organization FRANC [facility] Address [address] [place] [address] Care Team Providers Care Medical Review Specialist Name Role Phone CHRIS MELVI Primary Care Provider [phone] VIKY VILLALOBOS Advanced Manufacturing Technician Assessment No assessment recorded. Plan of Treatment [...] l spine , 2 or [facility] [address] [place] [address] Patisharon bowie Name: MICHELL SCANLON Jon bowie : [birth year] 54 Jon bowie Orderi ng Provid er: PELON THURMAN EXAM DATE: 2024 EXAM: XR LUMBAR AP/LAT CLINIC AL INFORM ATION: Back pain. Surger y follow -up IMAGES PROVID ED: AP, latera l and coned down views of the lumbar spine. COMPAR JULIANN: 2024 FINDIN GS: Grade 1 anteri or listhe sis of L4 relati ve to L5. Previo us L3-L5 database reporting consultant ior fixati on and interb neal fusion . No hardwa re compli cation . No hardwa re loosen ing or fractu re. No radiog raphic eviden ce of injury is noted. IMPRES CONCHIS: Uncomp licate d appear ing L3-L5 fusion Interp reted By: Vicente Truong MD Electr onical ly Signed By: Vicente Truong MD on 07/11/19 11:42 AM [facility] [address] [place], [address], 07/13/2024 12:21:40 08/01/19 25 07/28/2024 elect aline natalya am No observ ation record ed. BARCODE Not Available 2024 07:39:04 08/02/19 25 08/01/2024 MRI, lumba r spine , w/o contr ast [facility] [address] [place] [address] Patien t Name: MICHELL bowie : [birth year] 54 Patisharon t Orderi ng Provid er: PELON THURMAN EXAM DATE: 2024 EXAM: MR LUMBAR W/O CONTRA ST HISTOR Y: 68-yea r-old male with chroni c low back pain and prior lumbar surger y. COMPAR JULIANN: Radiog raph dated 07/11/19 and MRI dated 023 FINDIN GS: There is prior discec gaby, interb neal graft, database reporting consultant ior fusion and brendan ctomie s from L3 throug h L5. There is parama gnetic artifa ct from the interb neal spacer s, pedicl e screws and database reporting consultant ior fusion hardwa re. There is a fluid collec tion the brendan ctomy defect . There is mild database reporting consultant ior listhe sis of L2 on L3 [...] Keeley silverman MD on 025 11:36 AM [email or web address] [facility] [address] [place], [address], 08/04/2024 13:32:52 Result Notes None recorded. 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 matory drug 6623149518659 03 Active 2017 SAMSON ARMSTRONG MD [address] [place] [address], [address], [facility] 8 13:49:22 Interverteb ral disc disorder 69122026 Active 2017 SAMSON ARMSTRONG MD [address] [place] [address], [address], [facility] 8 13:50:28 Prostate specific antigen above reference range 512787775 Active 2017 SAMSON ARMSTRONG MD [address] [place] [address], [address], [facility] 8 13:52:28 Polyp of colon 03428701 Active 2017 SAMSON ARMSTRONG MD [facility] [place], [address], [facility] 8 13:54:14 Prediabetes 742756510 Active 2017 SAMSON ARMSTRONG MD [address] [place] [address] [place], [address], [facility] 8 17:11:05 Hyperlipide jesus 75307547 Active 2017 SAMSON ARMSTRONG MD [address] [place] [address] [place], [address], [facility] 8 17:11:45 History of malignant neoplasm of skin 030983263 Active 2023 Abena Palmer [facility] 4 08:08:23 Problem Notes None recorded. Procedures Surgical History Date Name Laterality Status Provider Name and Address Organization Details Recorded Time 5 EKG completed aAmireana Farthing [facility] 07/28/2024 14:06:44 5 DAK - Cryo AK completed [facility] 05/25/2024 08:13:48 5 DAK - Biopsy, Tangential completed [facility] 05/25/2024 08:13:45 4 DAK - Cryo AK completed [facility] 12/06/2023 08:14:47 4 DAK - ED&C; trunk,arm,leg completed Abena Hahnb [facility] 09/09/2023 08:26:13 4 DAK - Cryo AK completed [facility] 06/03/2023 08:12:46 4 DAK - Destruction BN Lesions completed [facility] 06/03/2023 08:13:26 4 DAK - Biopsy, Tangential completed [facility] 06/03/2023 08:13:35 4 [facility] 14:15:56 3 DAK - Cryo AK completed Abena Palmer [facility] 01/14/2023 09:38:39 3 DAK - Destruction BN Lesions [facility] 01/14/2023 09:38:51 3 DAK - ED&C; trunk,arm,leg completed Abena Palmer [facility] 01/14/2023 09:41:02 3 Stress Test - Nuclear Lexiscan completed ERICK CERVANTES MD [address] [place], [address], [facility] 12/09/2022 11:10:43 3 EKG completed Chris Day [facility] 09/09/2022 08:56:57 7 Biopsy Prostate, Needle w/Transrectal US completed FARRAH PRIDE MD [address] [place], [address], [facility] 11/27/2016 10:50:20 7 Biopsy Prostate, Needle w/Transrectal US completed FARRAH PRIDE MD [address] [place], [address], [facility] 05/15/2016 10:22:59 7 Prostate biopsy, any mthd completed Hattie Rodriguez [facility] 11/04/2016 16:11:41 Imaging Results None recorded. [...] 50 mcg/actua tion nasal spray,maria r pension [place] 2 sprays every day by intranas al [...] Status Current Every Day Smoker Hattie lee, [facility] 04/08/2016 13:08:41 Do You Have An Advance Directive? No Information not available 01/19/2018 What Is Your Level Of Caffeine Consumption? Heavy [email or web address] Information not available 01/19/2018 How Much Tobacco Do You Chew? None Information not available 01/19/2018 Which Illicit Or Recreational Drugs Have You Used? No [email or web address] Information not available 01/19/2018 Education 2 Year College [email or web address] Information not available 01/19/2018 Are There Any Guns Present In Your Home? Yes [email or web address] Information not available 01/19/2018 Hard Of Hearing Or Deaf In One Or Both Ears? Yes [email or web address] Information not available 01/19/2018 Legally Blind In One Or Both Eyes? No Information no t available 01/19/2018 Live Alone Or With Others? With Others [email or web address] Information not available 01/19/2018 Marital Status alisson Rollinsatio n not available 04/08/2016 What Was The Date Of Your Most Recent Tobacco Screening? 09/09/2023 [email or web address] Information not available 09/09/2023 How Many Children Do You Have? 4 [email or web address] Information not available 01/19/2018 Performs Monthly Self-breast Exam? No [email or web address] Information no t available 01/19/2018 What Is Your Relationship Status? [email or web address] Information not available 09/09/2022 Seat Belts Used Routinely Yes [email or web address] Information not available 01/19/2018 Are You Sexually Active? Yes [email or web address] Information not available 01/19/2018 Smoke Alarm In Home Yes [email or web address] Information not available 01/19/2018 At What Age Did You Start Smoking Tobacco? 13 [email or web address] Information not available 01/19/2018 How Much Tobacco Do You Smoke? 0.5 PPD [email or web address] Information not available 01/19/2018 General Stress Level Medium [email or web address] Information not available 01/19/2018 Do You Use Sunscreen Routinely? Yes [email or web address] Information not available 01/19/2018 Has Tobacco Cessation Counseling Been Provided? Yes [email or web address] Information not available 02/07/2018 On What Date Was Tobacco Cessation Counseling Provided? 09/09/2022 Information not available 09/09/2022 How Many Years Have You Smoked Tobacco? 50 [email or web address] Information not available 01/19/2018 Have You Recently Traveled Abroad? No [email or web address] Information not available 09/09/2022 Sex: Male Functional Status Question Answer Note LastModified by Organizat ion Details LastModified Time What is your level of alcohol consumption? None Information not available 04/08/2016 Are you currently employed? Yes [email or web address] Information not available 01/19/2018 Are you able to care for yourself? 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 Occasional [email or web address] Information not available 01/19/2018 Mental Status None recorded. Family History Relationship Description Onset Age of this Age Resolved Age Notes LastModified by Organization Details LastModified Time Mother Diabetes mellitus Not available 2016 13:08:33 Mother Heart disease Not available 01/2018 13:34:31 Father Hypertensive disorder Not available 01/2018 13:34:50 Paternal Uncle Heart disease [email or web address] Not available 01/2018 13:35:13 Medical History Condition Response Coronary Artery Disease N Massage Therapy for current problem N Gout N Other N Atrial Fibrillation N Kidney Stones N Hyperthyroidism N Heart Arrhythmia N Emphysema Y Depression N COPD Y Injections for current problem Y Peripheral Arterial Disease Y Edema N Nervous Illness N Anxiety Disorder N Obesity N Hiatal [...] Pain Medication for current pro blem N Lung Disease N Hypothyroidism N Pacemaker N Vascular Disease Y Difficulty [...] Anemia N Chest Pain N Heart Attack ([place]) N Mental Illness N Diabetes N Cardiomyopathy N Heart Murmur N Congestive Heart Failure (CHF) N Kidney Failure N Hyperlipidemia N Diverticulitis N Epilepsy/Seizures N Basal Cell Carcinoma Y Reflux/GERD N Sleep Apnea N Warfarin Management N Physical Therapy Treatments for current problem N Heart Disease N Hypertension Y Osteoporosis N Immunizations Vaccine Type Date Status Note Provider Nam e and Address Organization Details Recorded Time influenza, unspecified formulation 12/09/2017 [facility] 01/19/2018 13:36:12 Past Encounters Encounter ID Performer Location Encounter Start Date Encounter Closed Date Diagnosis/Indication Diagnosis SNOMED-CT Code Diagnosis ICD10 Code Diagnosis Note [id number] VIKY CHI MD [facility] [address] [place] [address] 05/25/2024 07:40:39 05/25/2024 08:21:59 History of malignant neoplasm of skin 370431857 Z85.828 - No evidence of recurrence today- Call with any worrisome lesions or if treated lesions return- Return at regular intervals for skin exam as recommende d Most recent, 05/2023 Multiple b enign melanocytic nevi 345974229 D22.5 - Benign moles seen on exam [...] changing or worrisome lesions Seborrheic keratosis 394 194446 L82.1 - Benign overgrowth s of skin - Hereditary Senile angioma 1838635 I 78.1 - Benign blood vessel growths - Hereditary Solar lentigo 49875535 L 81.4 - Benign brown spots - Sun-induce d Neoplasm o f uncertain behavior of skin 93244300 D48.5 Right medial alevism - ill-define d 1.5cm pink patch with vessels - R/o BCC (Mohs if +) Actinic keratosis 475232 007 L57.0 Actinic keratoses are precancero us lesions that may progress to squamous cell carcinoma if untreated. UV light and genetics may increase risk. Treated lesions should blister, scab over, and heal within a few weeks. If treated lesion(s) does not resolve within 1-2 months, patient agrees to follow up for re-evaluat ion. [id number] SHERRI BALL JR, MD [facility] [address] [place] [address] 06/13/2024 11:20:30 06/13/2024 15:17:24 Health Concerns Section Related Observation LastModified by Organization Detai ls LastModified Time None Recorded Concern Status LastModified by Organization Details LastModified Time None Recorded Payers Encounter Date Sequence Insurance Name Policy Number Policy Miller Covered Member ID Miller Member ID Guarantor Name 06/13/2024 1 [employer] [id number] Michell Scanlon [id number] Michell Scanlon
--- OUTSIDE RECORDS SUMMARY | 2024-08-09 11:14 | XMS_ITS | Continuity of Care Document ---
Author Organization [facility], NEUROSURGERY [address] [place] [address] Care Team Providers Care Lobster Catcher Name Role Phone MELVI PEREZ Primary Care Provider [phone] VIKY VILLALOBOS Associate Professor Of Communication Assessment Encounter Date Assessment Date Assessment LastModified by Organization Details LastModified Time 07/10/2024 07/10/2024 Mr. Scanlon is a 68-year-old [...] issue, and the L3-L5 levels are fine. [email or web address] Not available 07/10/2024 11:57:35 Plan of Treatment [...] view [facility] [address] [facility] [place] [address] [phone] Jon bowie Name: MICHELL bowie : [birth year] [...] relati ve to L5. Previo us L3-L5 ground mixer ior fixati on and interb neal fusion . No hardwa re compli cation . No hardwa re loosen ing or fractu re. No radiog raphic eviden ce of injury is noted. IMPRES CONCHIS: Uncomp licate d appear ing L3-L5 fusion Interp reted By: Vicente Truong MD Electr onical ly Signed By: Vicente Truong MD on 07/11/19 11:42 AM [facility] Radiology [address] [place], [address], 07/13/2024 12:21:40 08/01/19 25 07/28/2024 elect aline hoang am No observ ation record ed. BARCODE Not Available 2024 07:39:04 08/02/19 25 08/01/2024 MRI, lumba r spine , w/o contr ast [facility] [address] [facility] [place] [address] [phone] Jon t Name: MICHELL bowie : [birth year] Jon bowie Orderi ng Provid er: PELON THURMAN EXAM DATE: 2024 EXAM: MR LUMBAR W/O CONTRA ST HISTOR Y: 68-yea r-old male with chroni c low back pain and prior lumbar surger y. COMPAR JULIANN: Radiog raph dated 07/11/19 25 and MRI dated 023 FINDIN GS: There is prior discec gaby, interb neal graft, ground mixer ior fusion and brendan ctomie s from L3 throug h L5. There is parama gnetic artifa ct from the interb neal spacer s, pedicl e screws and ground mixer ior fusion hardwa re. There is a fluid collec tion the brendan ctomy defect . There is mild ground mixer ior listhe sis of L2 on L3 [...] silverman MD on 025 11:36 AM [email or web address] [facility] Radiology [address], [address], 08/04/2024 13:32:52 Result Notes Documentation Provider Name and Address Organization Details Recorded Time Xr, Lumbosacral Spine, 2 Or 3 View : [facility] [address] [place] [id number] Patient Name: MICHELL SCANLON Patient : [id number] Patient Ordering Provider: ANNE THURMAN EXAM DATE: 07/10/2024 EXAM: XR LUMBAR AP/LAT CLINICAL INFORMATION: Back pain. Surgery follow-up IMAGES PROVIDED: AP, lateral and coned down views of the lumbar spine. COMPARISON: 02/17/2024 FINDINGS: Grade 1 anterior listhesis of L4 relative to L5. Previous L3-L5 posterior fixation and interbody fusion. No hardware complication. No hardware loosening or fracture. No radiographic evidence of injury is noted. IMPRESSION: Uncomplicated appearing L3-L5 fusion Interpreted By: Vicente Truong MD THURMAN MD [address] [place] [address], [address], [facility] 07/10/2024 12:51:48 Problems Name Problem SNOMED Code Status Onset Date Resolution Date Notes Provider Name and Address Organization Details Recorded Time Hypertensiv e disorder 05754817 Active 2017 SAMSON ARMSTRONG MD [address] [place], [address], [facility] 8 13:48:35 Seasonal allergy 172527126 Active 2017 SAMSON ARMSTRONG MD [facility] [place], [address], [facility] 8 13:48:53 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-steroid al anti-inflam matory drug 5726053747054 03 Active 2017 SAMSON ARMSTRONG MD [facility] [place], [address], [facility] 8 13:49:22 Interverteb ral disc disorder 06602499 Active 2017 SAMSON ARMSTRONG MD [facility] [place], [address], [facility] 8 13:50:28 Prostate specific antigen above reference range 810581706 Active 2017 SAMSON ARMSTRONG MD [facility] [place], [address], [facility] 8 13:52:28 Polyp of colon 72063008 Active 2017 SAMSON ARMSTRONG MD [facility] [place], [address], [facility] 8 13:54:14 Prediabetes 727780082 Active 2017 SAMSON ARMSTRONG MD [facility] [place], [address], [facility] 8 17:11:05 Hyperlipide jesus 67711266 Active 2017 SAMSON ARMSTRONG MD [facility] [place], [address], [facility] 8 17:11:45 History of malignant neoplasm of skin 361729426 Active 2023 Abena Palmer [facility] 4 08:08:23 Problem Notes None recorded. Procedures Surgical History Date Name Laterality Status Provider Name and Address Organization Details Recorded Time 5 EKG completed Daveana Farthing [facility] 07/28/2024 14:06:44 5 DAK - Cryo AK completed [facility] 05/25/2024 08:13:48 5 DAK - Biopsy, Tangential completed [facility] 05/25/2024 08:13:45 4 DAK - Cryo AK completed [facility] 12/06/2023 08:14:47 4 DAK - ED&C; trunk,arm,leg completed [facility] 09/09/2023 08:26:13 4 DAK - Cryo AK completed [facility] 06/03/2023 08:12:46 4 DAK - Destruction BN Lesions completed [facility] 06/03/2023 08:13:26 4 DAK - Biopsy, Tangential completed [facility] 06/03/2023 08:13:35 4 Back Surgery completed Daveana Farthing [facility] 07/28/2024 14:15:56 3 DAK - Cryo AK completed [facility] 01/14/2023 09:38:39 3 DAK - Destruction BN Lesions completed [facility] 01/14/2023 09:38:51 3 DAK - ED&C; trunk,arm,leg completed [facility] 01/14/2023 09:41:02 3 Stress Test - Nuclear Lexiscan completed ERICK CERVANTES MD [address] [place], [address], [facility] 12/09/2022 11:10:43 3 EKG completed Chris Day [facility] 09/09/2022 08:56:57 7 Biopsy Prostate, Needle w/Transrectal US completed FARRAH PRIDE MD [address] [place], [address], [facility] 11/27/2016 10:50:20 7 Biopsy Prostate, Needle w/Transrectal US completed FARRAH PRIDE MD [address] [place] [address], [address], [facility] 05/15/2016 10:22:59 7 Prostate biopsy, any mthd completed Hattie Juliann [facility] 11/04/2016 16:11:41 Imaging Results None recorded. [...] 50 mcg/actua tion nasal spray,maria r pension [place] 2 sprays every day by intranas al [...] Last Updated DateTime 07/10/2024 177.8 cm Tabatha Coates [facility] 07/10/2024 11:50:14 Social History Question Answer Notes LastModified by Organizat ion Details LastModified Time Tobacco Smoking Status Current Every Day Smoker Hattie lee, [facility] 04/08/2016 13:08:41 Do You Have An Advance Directive? No [email or web address] Information not available 01/19/2018 What Is Your Level Of Caffeine Consumption? Heavy Information not available 01/19/2018 How Much Tobacco Do You Chew? None [email or web address] Information not available 01/19/2018 Which Illicit Or Recreational Drugs Have You Used? No [email or web address] Information not available 01/19/2018 Education 2 Year College [email or web address] Information not available 01/19/2018 Are There Any Guns Present In Your Home? Yes [email or web address] Information not available 01/19/2018 Hard Of Hearing Or Deaf In One Or Both Ears? Yes [email or web address] Information not available 01/19/2018 Legally Blind In One Or Both Eyes? No [email or web address] Information no t available 01/19/2018 Live Alone Or With Others? With Others [email or web address] Information not available 01/19/2018 Marital Status alisson Informatio n not available 04/08/2016 What Was The Date Of Your Most Recent Tobacco Screening? 09/09/2023 [email or web address] Information not available 09/09/2023 How Many Children Do You Have? 4 [email or web address] Information not available 01/19/2018 Performs Monthly Self-breast Exam? No [email or web address] Information no t available 01/19/2018 What Is Your Relationship Status? [email or web address] Information not available 09/09/2022 Seat Belts Used Routinely Yes [email or web address] Information not available 01/19/2018 Are You Sexually Active? Yes [email or web address] Information not available 01/19/2018 Smoke Alarm In Home Yes [email or web address] Information not available 01/19/2018 At What Age Did You Start Smoking Tobacco? 13 [email or web address] Information not available 01/19/2018 How Much Tobacco Do You Smoke? 0.5 PPD [email or web address] Information not available 01/19/2018 General Stress Level Medium [email or web address] Information not available 01/19/2018 Do You Use Sunscreen Routinely? Yes [email or web address] Information not available 01/19/2018 Has Tobacco Cessation Counseling Been Provided? Yes [email or web address] Information not available 02/07/2018 On What Date Was Tobacco Cessation Counseling Provided? 09/09/2022 [email or web address] Information not available 09/09/2022 How Many Years Have You Smoked Tobacco? 50 [email or web address] Information not available 01/19/2018 Have You Recently Traveled Abroad? No [email or web address] Information not available 09/09/2022 Sex: Male Functional Status Question Answer Note LastModified by Organizat ion Details LastModified Time What is your level of alcohol consumption? None Information not available 04/08/2016 Are you currently employed? Yes Information not available 01/19/2018 Are you able to care for yourself? 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 Occasional [email or web address] Information not available 01/19/2018 Mental Status None recorded. Family History Relationship Description Onset Age of this Age Resolved Age Notes LastModified by Organization Details LastModified Time Mother Diabetes mellitus Not available 2016 13:08:33 Mother Heart disease [email or web address] Not available 01/2018 13:34:31 Father Hypertensive disorder Not available 01/2018 13:34:50 Paternal Uncle Heart disease [email or web address] Not available 01/2018 13:35:13 Medical History Condition [...] Anemia N Chest Pain N Heart Attack ([place]) N Mental Illness N Diabetes N Cardiomyopathy [...] influenza, unspecified formulation 12/09/2017 completed Suze Philippe [facility] 01/19/2018 13:36:12 Past Encounters Encounter ID Performer Location Encounter Start Date Encounter Closed Date Diagnosis/Indication Diagnosis SNOMED-CT Code Diagnosis ICD10 Code Diagnosis Note [id number] SHERRI BALL JR, MD [facility] [address] [facility] [place] [address] 06/13/2024 11:20:30 06/13/2024 15:17:24 [id number] ANNE THURMAN MD [facility] [address] [place] [address] 07/10/2024 11:03:24 07/11/2024 04:32:12 Postoperative visit 097734158 Z48.89 Health Concerns Section Related Observation LastModified by Organization Detai ls LastModified Time None Recorded Concern Status LastModified by Organization Details LastModified Time None Recorded Payers Encounter Date Sequence Insurance Name Policy Number Policy Miller Covered Member ID Miller Member ID Guarantor Name 07/10/2024 1 [place] [id number] Michell Scanlon [id number] Michell Scanlon Notes Date Note Type Note Provider Name and Address Organization Details Recorded Time 07/10/2024 text/html Mr. Scanlon is a 68-year-old gentleman status post L3-L5 fusion on December 29, 2023. He has complete relief of his left-sided pain, but continues to have some right leg pain, which seems to follow an L4 distribution. He presents today for second postoperative visit with x-rays. ANNE THURMAN MD [address] [place], [address], [facility] 07/10/2024 11:57:54
--- OUTSIDE RECORDS SUMMARY | 2024-08-09 11:14 | XMS_ITS | Data Portability ---
Author Organization [facility] ADMIN Address [address] [place] [address] Assessment No assessment recorded. Plan of Treatment [...] 2 Punch Biopsy completed Mary Gibbs MD [facility], [place], [address], [facility] & [place] 12/24/2021 14:38:14 Imaging Results None recorded. Procedure [...] Updated DateTime 2 177.8 cm 24.4 kg/m2 79199.7 g 97.3 [degF] 86 /min 121 mm[Hg] 71 mm[Hg] Arminda BRUNER [facility] & [place] 10:22:32 Social History Question Answer Notes LastModified by Organizat ion Details LastModified Time Tobacco Smoking Status Current Every Day Smoker Arminda [facility], [facility] [place] 12/24/2021 10:08:07 Do You Have An Advance [...] anxious, or unable to sleep at night)? [id number] Information not available 12/24/2021 Family History Nothing Reported. Medical History Condition Response Acid Reflux (GERD) Y Hyperlipidemia Y Back Problems Y Reflux/GERD Y High Cholesterol Y Hypertension Y Past Encounters Encounter ID Performer Location Encounter Start Date Encounter Closed Date Diagnosis/Indication Diagnosis SNOMED-CT Code Diagnosis ICD10 Code Diagnosis Note [id number] Mary Gibbs MD [facility] [place] [address] 12/24/2021 10:00:18 12/24/2021 11:12:55 Lesion of skin of left ear 8910771440 6479327 H93.8X2 Biopsy taken in office today. Suspicious for skin cancer. I will be in touch with the patient as soon as we get the pathology results. Sooner if needed. Otalgia of left ear 1010 461022 H92.02 Health Concerns Section Related Observation LastModified by Organization Detai ls LastModified Time None Recorded Concern Status LastModified by Organization Details LastModified Time None Recorded Advance Directives Directive N: Payers Insurance Date Sequence Insurance Name Policy Number Policy Miller Covered Member ID Miller Member ID Guarantor Name 12/31/2021 1 [place] [id number] Ousmane Damian [id number] Ousmane Damian
--- OUTSIDE RECORDS SUMMARY | 2024-08-09 11:16 | XMS_ITS | Encounter Summary ---
Author Organization [email or web address] ([place], [place], [place], [place]) Address [address] [place] [address] Care Team Providers Care Geoscience Specialist Name Role Phone Rip Aguilar MD Primary Care Provider [phone] Encounter Details Date Type Department Care Team (Late st Contact Info) Description 07/14/2024 Outside Orders [facility] Admitting [address] [place] [address] Elena López PA-C [address] [place] [address] [place] [address] Acute deep vein thrombosis (DVT) of popliteal vein of left lower extremity (HCC) (Primary Dx); Atherosclerosis of artery of both lower extremities (HCC); Cigarette nicotine dependence with nicotine-induced disorder Social History Tobacco Use Types Packs/Day Years Used Date Smoking Tobacco: Every Day Cigarettes Smokeless Tobacco: Current Comments:Smokes ppd or more. Occasional chewing tobacco Alcohol Use Standard Drinks/Week Comments Never 0 (1 standard drink = 0.6 oz pur e alcohol) [facility] - Mental Health Answer Date Recorde d [...] Date Edgardo rded Speak language other than [place] at home Not on file 02/25/2023 Want [...] Description 09/20/2024 10:45 AM EDT Office Visit [facility] Pulm & Critical Care Medicine [address] [place], [place] [phone] Jocelynn Cowan MD [address] [place] [address] documented as of this encounter Results * (ABNORMAL) CBC with automated diff (07/14/2024 11:44 AM EDT) WBC 10.3 4.8 - 10.8 K/ L 07/14/2024 12:05 PM EDT [facility] RBC 4.63 3.80 - 5.20 M/ L 07/14/2024 12:05 PM EDT [facility] Hemoglobin 13.8 12.8 - 17.4 GM/DL 07/14/2024 12:05 PM EDT [facility] Hematocrit 41.5 39.0 - 51.0 % 07/14/2024 12:05 PM EDT [facility] MCV 90 81 - 101 fL 07/14/2024 12:05 PM EDT [facility] MCH 29.8 27.0 - 34.0 pg 07/14/2024 12:05 PM EDT [facility] MCHC 33.3 32.0 - 36.0 GM/DL 07/14/2024 12:05 PM EDT [facility] RDW 15.0(H) 11.5 - 14.5 % 07/14/2024 12:05 PM EDT [facility] Platelets 157 150 - 400 K/CU MM 07/14/2024 12:05 PM EDT [facility] MPV 11.2 9.4 - 12.4 fL 07/14/2024 12:05 PM EDT [facility] Nucleated Red Blood Cell 0.0 0 - 0.2 % 07/14/2024 12:05 PM EDT [facility] NRBC Absolute <0.01 0 - 0.012 K/ul 07/14/2024 12:05 PM EDT [facility] Blood Venipuncture / Unknown 07/14/2024 11:44 AM EDT 07/14/2024 11:46 AM EDT Narrative [facility] - 07/14/2024 12:05 PM EDT When CBC w/ Auto Diff is ordered the lab will add a Manual Differential as a quality check at no additional charge if: Lymphocytes greater than seventy five percent with normal or increased WBC Monocytes greater than Fifteen percent Basophil greater than four percent Bands >10% or several immature myeloids are seen on scan Blast? Flag noted Atypical Lymph flag noted us Elena López PA-C LAB BLOOD ORDERABLES Final R esult [facility] [address] [address] [phone] * (ABNORMAL) Basic Metabolic Panel (07/14/2024 11:44 AM EDT) Sodium 139 136 - 145 meq/L 07/14/2024 12:02 PM EDT [facility] Potassium 3.9 3.5 - 5.1 meq/L 07/14/2024 12:02 PM EDT [facility] Chloride 105 98 - 107 meq/L 07/14/2024 12:02 PM EDT [facility] CO2 29 21 - 32 meq/L 07/14/2024 12:02 PM EDT [facility] Anion Gap 9(L) 11 - 22 07/14/2024 12:02 PM EDT [facility] BUN 11 7 - 18 mg/dL 07/14/2024 12:02 PM EDT [facility] Creatinine 1.15 0.70 - 1.20 mg/dL 07/14/2024 12:02 PM EDT [facility] BUN/Creatinine 10 07/14/2024 12:02 PM EDT [facility] Glucose 89 70 - 99 mg/dL 07/14/2024 12:02 PM EDT [facility] Calcium 9.0 8.5 - 10.1 mg/dL 07/14/2024 12:02 PM EDT [facility] Osmolality Calc 276.4 mOsm/kg 12:02 PM EDT [facility] eGFR (mL/min/1.73m2) >60 >=60 mL/min/1.7 3m2 07/14/2024 12:02 PM EDT [facility] Comment:eGFR of <60 suggests chronic kidney disease if found over a 3 month period of time. eGFR <15 indicates renal failure. Blood Venipuncture / Unknown 07/14/2024 11:44 AM EDT 07/14/2024 11:46 AM EDT us Elena López PA-C LAB BLOOD ORDERABLES Final R esult [facility] [address] [place] [address] documented in this encounter Visit Diagnoses Diagnosis Acute deep vein thrombosis (DVT) of popliteal vein of left lower extremity (HCC)- Primary Atherosclerosis of artery of both lower extremities (HCC) Cigarette nicotine dependence with nicotine-induced disorder documented in this encounter Care Teams Geoscience Specialist Relationship Specialty Start Date End Date Rip Aguilar MD [facility] [place] [address] PCP - General General Internal Medicine 11/11/22 documented as of this encounter
--- OUTSIDE RECORDS SUMMARY | 2024-08-09 11:16 | XMS_ITS | Encounter Summary ---
Author Organization [employer] ([place], [place], [place], [place]) Address [address] [place] [address] Care Team Providers Care Creative Manager Name Role Phone Rip Aguilar MD Primary Care Provider [phone] Reason for Visit * Reason Onset Date Comments Medication Management 07/05/2024 Encounter Details Date Type Department Care Team (Late st Contact Info) Description 07/05/2024 Telephone [facility] Cardiology [address] [phone] Jocelynn Cowan MD [address] [place] [address] [address] [place] [address] Medication Management Social History Tobacco Use Types Packs/Day Years Used Date Smoking Tobacco: Every Day Cigarettes Smokeless Tobacco: Current Comments:Smokes ppd or more. Occasional chewing tobacco Alcohol Use Standard Drinks/Week Comments Never 0 (1 standard drink = 0.6 oz pur e alcohol) [facility] - Mental Health Answer Date Recorde d [...] Date Edgardo rded Speak language other than [place] at home Not on file 02/25/2023 Want [...] Telephone Encounter - Natalie Crowley CMA - 07/05/2024 9:54 AM EDT Called [facility] pharmacy and verified that both albuterol and anoro rx's were received. Called patient, and he stated this is already taken care of. No further questions or concerns at this time. * Telephone Encounter - Rosamaria Potter - 07/05/2024 8:06 AM EDT Patient left on Device clinic that he only received 1 RX and is still missing 1 Please contact patient documented in this encounter Plan of Treatment Upcoming Encounters Date Type Department Care Team (Late st Contact Info) Description 09/20/2024 10:45 AM EDT Office Visit [facility] Pulm & Critical Care Medicine [address] [place] [address] [address] Jocelynn Cowan MD [address] [facility] [address] [place] [address] documented as of this encounter Visit Diagnoses Not on filedocumented in this encounter Care Teams Creative Manager Relationship Specialty Start Date End Date Rip Aguilar MD [address] [place] [address] PCP - General General Internal Medicine 11/11/22 documented as of this encounter
--- OUTSIDE RECORDS SUMMARY | 2024-08-09 11:17 | XMS_ITS | Clinical Summary ---
Author Organization [employer] ([place], [place], [place], [place]) Address [address] [place] [address] Care Team Providers Care Distribution Engineering Technologist Name Role Phone Rip Aguilar MD Primary Care Provider [phone] Allergies No known active allergies Medications losartan (COZAAR) 100 MG tablet Take 1 tablet (100 mg total) by mouth daily. 4 11/17/19 25 Active amLODIPine (NORVASC) 5 MG tablet Take 1 tablet (5 mg total) by mouth nightly. 4 11/17/19 25 Active omeprazole (PriLOSEC) 20 MG capsule Take 2 capsules (40 mg total) by mouth 2 (two) times daily. 4 Active rosuvastatin (CRESTOR) 20 MG tablet Take 1 tablet (20 mg total) by mouth nightly. 4 11/17/19 25 Active traZODone (DESYREL) 50 MG tablet Take 4 tablets (200 mg total) by mouth nightly. 4 Active pregabalin (LYRICA) 150 MG capsule Take 1 capsule (150 mg total) by mouth 3 (three) times daily Can take up to 4x/day as directed . Active latanoprost (XALATAN) 0.005 % ophthalmic solution Administer 1 drop into both eyes nightly. 4 Active cetirizine (ZyrTEC) 10 MG tablet Take 1 tablet (10 mg total) by mouth daily. 4 11/17/19 25 Active chromium picolinate 1,000 mcg tab Take 1 tablet by mouth daily. Active aspirin 81 MG EC tablet Take 1 tablet (81 mg total) by mouth daily. Active cyanocobalamin (vitamin B-12) 1000 MCG tablet Take 1 tablet (1,000 mcg total) by mouth daily. Active magnesium glycinate (Mag Glycinate) 100 mg tab Take 1 tablet by mouth nightly. Active diclofenac sodium (VOLTAREN) 75 MG EC tablet Take 1 tablet (75 mg total) by mouth 2 (two) times daily. 4 Active fluticasone propionate (FLONASE) 50 mcg/actuation nasal spray Administer 2 sprays into affected nostril(s) 2 (two) times daily. 5 Active hydroCHLOROthia zide (HYDRODIURIL) 25 MG tablet Take 1 tablet (25 mg total) by mouth daily. 5 Active tamsulosin (FLOMAX) 0.4 mg cap 24 hr capsule Take 1 capsule (0.4 mg total) by mouth daily. 5 Active Eliquis 5 MG tablet Take 1 tablet (5 mg total) by mouth 2 (two) times daily. 5 Active umeclidinium-vi lanteroL (Anoro Ellipta) 62.5-25 mcg/actuation dsdv Inhale 1 puff by mouth daily for 30 days. 1 each 3 5 07/30/19 25 albuterol 90 mcg/actuation inhaler Inhale 2 puffs by mouth every 6 (six) hours as needed for wheezing for up to 30 days. 1 Inhaler 5 5 07/30/19 25 Active Problems Problem Noted Date Diagnosed Date Arthritis Bulging lumbar disc GERD (gastroesophageal reflux disease) High cholesterol Hypertension Resolved Problems Problem Noted Date Diagnosed Date Resolved Date Spondylolisthesis of lumbar region 12/29/2023 12/29/2023 Encounters Date Type Department Care Team Description 07/14/2024 12:15 PM EDT Lab Patient Walk-In [facility] Lab [address] [place] [id number] Acute deep vein thrombosis (DVT) of popliteal vein of left lower extremity (HCC); Atherosclerosis of artery of both lower extremities (HCC); Cigarette nicotine dependence with nicotine-induced disorder 07/14/2024 Travel 07/14/2024 Outside Orders [facility] Admitting [address] [place] [address] Elena López PA-C Acute deep vein thrombosis (DVT) of popliteal vein of left lower extremity (HCC) (Primary Dx); Atherosclerosis of artery of both lower extremities (HCC); Cigarette nicotine dependence with nicotine-induced disorder 07/05/2024 Telephone [facility] Cardiology [address] [place], [place] [id number] Jocelynn Cowan MD Medication Management 06/29/2024 10:45 AM EDT Office Visit [facility] Pulm & Critical Care Medicine [address] [place] [address] [address] Jocelynn Cowan MD Abnormal chest CT (Primary Dx); Abnormal pulmonary function test; Chronic obstructive pulmonary disease, unspecified COPD type (HCC); Chronic cough; Dyspnea on exertion; Multiple lung nodules on CT; Tobacco dependence due to cigarettes; Allergies; At risk for obstructive sleep apnea; Screening for lung cancer; Snoring 06/29/2024 Telephone [facility] Pulm & Critical Care Medicine [address] [place] [address] [address] Jocelynn Cowan MD Medication Management 06/29/2024 Travel 06/22/2024 8:53 AM EDT - 06/22/2024 11:59 PM EDT Hospital Encounter [facility] Pulmonary Lab [address] [place] [address] Jocelynn Cowan MD Chronic cough; Dyspnea on exertion Discharge Disposition: Home or Self Care 06/22/2024 8:52 AM EDT Hospital Encounter [facility] CT Imaging [address] [place] [address] Jocelynn Cowan MD Tobacco dependence due to cigarettes; Screening for lung cancer Discharge Disposition: Home or Self Care 06/22/2024 Travel 05/29/2024 11:00 AM EDT Office Visit [facility] Pulm & Critical Care Medicine [address] [place] [address] [id number] Jocelynn Cowan MD Dyspnea on exertion (Primary Dx); Tobacco dependence due to cigarettes; Allergies; At risk for obstructive sleep apnea; Chronic cough; Chronic respiratory failure with hypoxia (HCC); Overweight; Screening for lung cancer; Snoring 05/29/2024 Travel from Last 3 Months Social History Tobacco Use Types Packs/Day Years Used Date Smoking Tobacco: Every Day Cigarettes Smokeless Tobacco: Current Tobacco Cessation:Ready to Q uit: No; Counseling Given: Yes Comments:Smokes ppd or more. Occasional chewing tobacco Alcohol Use Standard Drinks/Week Comments Never 0 (1 standard drink = 0.6 oz pur e alcohol) [facility] - Mental Health Answer Date Recorde d [...] Date Edgardo rded Speak language other than [place] at home Not on file 02/25/2023 Want [...] Orientation Straight 11/16/2022 1: 34 PM CDT Last Filed Vital Signs Vital Sign Reading Time Taken Comments Blood Pressure 120/69 06/29/2024 10:46 AM EDT Pulse 87 06/29/2024 10:46 AM EDT Temperature 36.7 C (98 F) 01/01/2024 1:00 PM EST Respiratory Rate 16 06/29/2024 10:46 AM EDT Oxygen Saturation 90% 06/29/2024 10:46 AM EDT ra Inhaled Oxygen Concentration - - Weight 93.4 kg (206 lb) 06/29/2024 10:46 AM EDT Height 177.8 cm (5' 10 ) 06/29/2024 10:46 AM EDT Body Mass Index 29.56 06/29/2024 10:46 AM EDT Plan of Treatment Upcoming Encounters Date Type Department Care Team (Late st Contact Info) Description 09/20/2024 10:45 AM EDT Office Visit [facility] Pulm & Critical Care Medicine [address] [place] [address] [address] [place] [phone] Jocelynn Cowan MD [address] [place] [address] [address] Health Maintenance Due Date Last Done Comments CT Colonography 1954 Colonoscopy 1954 Colorectal Cancer Screening 1954 FOBT/FIT 1954 Fit-DNA (Cologuard) 1954 Sigmoidoscopy 1954 Hepatitis C Screening 1972 DTAP/TDAP/TD VACCINES (1 - Tdap) 1973 Respiratory Syncytial Virus (RSV) Adult or (1 - Risk 60-74 years 1-dose series) 2014 Abdominal Aortic Aneurysm (A AA) Screen 08/09/2019 Pneumococcal 50+ years (2 of 2 - PPSV23) 02/03/2020 12/09/2019 COVID-19 VACCINE (6 - 2023-2 5 season) 2023 12/06/2021, 06/07/2021, 01/05/2021, Additional history exists Falls Risk Screening 02/09/2024 Depression Screening (12+) 12/21/2024 12/22/2023 Tobacco Cessation Counseling and Screening (12+) 05/29/2025 05/29/2024 Lung cancer screening 06/22/2025 06/22/2024, 023 Shingles Vaccine (Zoster) Completed 2020, 01/12/2020, 10/10/2014 Influenza Vaccine Completed 11/17/2023, , 12/10/2020, Additional history exists Medical Devices Implanted Type Area Experimental Rocket Sled Mechanic Device Identifier Shelf Expiration Date Model / Serial / Lot Bone Vivigen Formable Cell 5cc Bl-1600-002 - [id number] Implanted:Qty : 1 on 12/29/2023 by Lon Dixon MD at [facility] IMPLANTS N/A: Spine Lumbar LIFENET:LIFENET TRANSPLANT SRV 12/02/2024 BL-1600-0 02 / [id number] / Cage Eit Plif H 8mm 8d 03/11 [id number] - [id number] Implanted:Qty : 1 on 12/29/2023 by Lon Dixon MD at [facility] IMPLANTS N/A: Spine Lumbar J &J:DEPUY:DEPUY SPINE 09/07/2033 [id number] / / [id number] Cage T/Plif 10mm [id number] - [id number] Implanted:Qty : 1 on 12/29/2023 by Lon Dixon MD at [facility] IMPLANTS N/A: Spine Lumbar J &J:DEPUY:DEPUY SPINE 10/08/2033 [id number] / / [id number] Bone Putty Stimulan 5cc 620-005 - [id number] Implanted:Qty : 1 on 12/29/2023 by Lon Dixon MD at [facility] IMPLANTS N/A: Spine Lumbar BIOCOMPOSITES 08/07/2026 [id number] / / [id number] Scr Spne Alexandr Fix 6x55mm [id number] - [id number] Implanted:Qty : 5 on 12/29/2023 by Lon Dixon MD at [facility] IMPLANTS N/A: Spine Lumbar J &J:DEPUY:DEPUY SPINE 6 55 / 6 55 / Scr Spne Alexandr Fix 6x50mm - [id number] Implanted:Qty : 1 on 12/29/2023 by Lon Dixon MD at [facility] IMPLANTS N/A: Spine Lumbar J &J:DEPUY:DEPUY SPINE 6 50 / 50 / Mis Sergio Ply Scrw Set Ti - [id number] Implanted:Qty : 6 on 12/29/2023 by Lon Dixon MD at [facility] IMPLANTS N/A: Spine Lumbar J &J:DEPUY:DEPUY SPINE -0 00 / 0 00 / Marcello Pre Load 75mm [id number] - [id number] Implanted:Qty : 2 on 12/29/2023 by Lon Dixon MD at [facility] IMPLANTS N/A: Spine Lumbar J &J:DEPUY:DEPUY SPINE -0 75 / -0 75 / Procedures Procedure Name Priority Date/Time Associated Diagnosis Comments MANUAL DIFFERENTIAL Routine 07/14/2024 1 1:44 AM EDT Acute deep vein thrombosis (DVT) of popliteal vein of left lower extremity (HCC) Atherosclerosis of artery of both lower extremities (HCC) Cigarette nicotine dependence with nicotine-induced disorder CBC W/ AUTO DIFF Routine 07/14/2024 11:4 4 AM EDT Acute deep vein thrombosis (DVT) of popliteal vein of left lower extremity (HCC) Atherosclerosis of artery of both lower extremities (HCC) Cigarette nicotine dependence with nicotine-induced disorder BASIC METABOLIC PANEL Routine 07/14/2024 11:44 AM EDT Acute deep vein thrombosis (DVT) of popliteal vein of left lower extremity (HCC) Atherosclerosis of artery of both lower extremities (HCC) Cigarette nicotine dependence with nicotine-induced disorder CT LUNG SCREENING ANNUAL FOLLOWUP Routine 06/22/2024 10:04 AM EDT Tobacco dependence due to cigarettes Screening for lung cancer FS_MODEL_IP PFT Routine 06/22/2024 10:04 AM EDT Chronic cough Dyspnea on exertion from Last 3 Months Results * (ABNORMAL) CBC with automated diff (07/14/2024 11:44 AM EDT) WBC 10.3 4.8 - 10.8 K/ L 07/14/2024 12:05 PM EDT [facility] RBC 4.63 3.80 - 5.20 M/ L 07/14/2024 12:05 PM EDT [facility] Hemoglobin 13.8 12.8 - 17.4 GM/DL 07/14/2024 12:05 PM EDT [facility] Hematocrit 41.5 39.0 - 51.0 % 07/14/2024 12:05 PM EDT [facility] MCV 90 81 - 101 fL 07/14/2024 12:05 PM EDT [facility] MCH 29.8 27.0 - 34.0 pg 07/14/2024 12:05 PM EDT [facility] MCHC 33.3 32.0 - 36.0 GM/DL 07/14/2024 12:05 PM EDT [facility] RDW 15.0(H) 11.5 - 14.5 % 07/14/2024 12:05 PM EDT [facility] Platelets 157 150 - 400 K/CU MM 07/14/2024 12:05 PM EDT [facility] MPV 11.2 9.4 - 12.4 fL 07/14/2024 12:05 PM EDT [facility] Nucleated Red Blood Cell 0.0 0 - 0.2 % 07/14/2024 12:05 PM EDT [facility] NRBC Absolute <0.01 0 - 0.012 K/ul 07/14/2024 12:05 PM EDT [facility] Blood Venipuncture / Unknown 07/14/2024 11:44 AM EDT 07/14/2024 11:46 AM EDT Narrative [facility] - 07/14/2024 12:05 PM EDT When [...] PA-C LAB BLOOD ORDERABLES Final R esult [facility] [address] [place] [address], [facility] [phone] * (ABNORMAL) Manual Differential (07/14/2024 11:44 AM EDT) Total Counted 100 07/14/2024 12:06 PM EDT [facility] % Neutros (manual) 62 15 - 67 % 07/14/2024 12:06 PM EDT [facility] % Bands (manual) 1(L) 2 - 21 % 07/14/2024 12:06 PM EDT [facility] % Lymphs (manual) 28 10 - 50 % 07/14/2024 12:06 PM EDT [facility] % Monos (manual) 8 2 - 10 % 07/14/2024 12:06 PM EDT [facility] % Eos (manual) 1 0 - 7 % 07/14/2024 12:06 PM EDT [facility] RBC Morphology Normal Normal 07/14/2024 12:06 PM EDT [facility] Platelet Estimate Adequate Adequate 07/14/2024 12:06 PM EDT [facility] ANC# 6.49 K/ L 07/14/2024 12:06 PM EDT [facility] Blood Venipuncture / Unknown 07/14/2024 11:44 AM EDT 07/14/2024 11:46 AM EDT Elena López PA-C LAB BLOOD ORDERABLES Final R esult [facility] [address] [phone] * (ABNORMAL) Basic Metabolic Panel (07/14/2024 11:44 AM EDT) Sodium 139 136 - 145 meq/L 07/14/2024 12:02 PM EDT [facility] Potassium 3.9 3.5 - 5.1 meq/L 07/14/2024 12:02 PM EDT [facility] Chloride 105 98 - 107 meq/L 07/14/2024 12:02 PM EDT [facility] CO2 29 21 - 32 meq/L 07/14/2024 12:02 PM EDT [facility] Anion Gap 9(L) 11 - 22 07/14/2024 12:02 PM EDT [facility] BUN 11 7 - 18 mg/dL 07/14/2024 12:02 PM EDT [facility] Creatinine 1.15 0.70 - 1.20 mg/dL 07/14/2024 12:02 PM EDT [facility] BUN/Creatinine 10 07/14/2024 12:02 PM EDT [facility] Glucose 89 70 - 99 mg/dL 07/14/2024 12:02 PM EDT [facility] Calcium 9.0 8.5 - 10.1 mg/dL 07/14/2024 12:02 PM EDT [facility] Osmolality Calc 276.4 mOsm/kg 12:02 PM EDT [facility] eGFR (mL/min/1.73m2) >60 >=60 mL/min/1.7 3m2 07/14/2024 12:02 PM EDT [facility] Comment:eGFR of <60 suggests chronic kidney disease if found over a 3 month period of time. eGFR <15 indicates renal failure. Blood Venipuncture / Unknown 07/14/2024 11:44 AM EDT 07/14/2024 11:46 AM EDT Elena López PA-C LAB BLOOD ORDERABLES Final R esult [facility] [address] [place] [address], [facility] [phone] * CT LUNG SCREENING ANNUAL FOLLOWUP (06/22/2024 [...] dictated by Dr. Camron Hwang. Transcribed by Gwne Youngblood PA-C. Narrative 06/22/2024 12:21 PM EDT [...] that is unchanged. us Jocelynn Cowan MD IMG CT ORDERABLES Final Result * Pulmonary Function Testing (06/22/2024 10:04 AM EDT) Anatomical Region Laterality Modality Other Narrative 06/22/2024 1:28 PM EDT Images from the original result were not included. Mild COPD/asthma Mod small airways disease us Jocelynn Cowan MD PFT ORDERABLES Final Result from Last 3 Months Insurance BLUE CROSS/BLUE SHIELD Advance Directives For more information, please contact: [phone] * Full Code (Latest Code Status on File) Date Activated Date Inactivated Comments 12/29/2023 11:16 AM 01/01/2024 4:28 PM Healthcare Agents on File Name Relationship Healthcare Agent Relationshi p Communication Padmini Spouse Healthcare Decision-Maker Care Teams Distribution Engineering Technologist Relationship Specialty Start Date End Date Rip Aguilar MD [address] [phone] PCP - General General Internal Medicine 11/11/22
--- OUTSIDE RECORDS SUMMARY | 2024-08-09 11:17 | XMS_ITS | Encounter Summary ---
Author Organization [employer] ([place], [place], [place], [place]) Address [address] [place] [address] Care Team Providers Care Keyseater Operator Name Role Phone Rip Aguilar MD Primary Care Provider [phone] Encounter Details Date Type Department Care Team (Latest Contact Info) Description 07/14/2024 Travel Social History Tobacco Use Types Packs/Day Years Used Date Smoking Tobacco: Every Day Cigarettes Smokeless Tobacco: Current Comments:Smokes ppd or more. Occasional chewing tobacco Alcohol Use Standard Drinks/Week Comments Never 0 (1 standard drink = 0.6 oz pur e alcohol) [facility] - Mental Health Answer Date [...] Date Edgardo rded Speak language other than [place] at home Not on file 02/25/2023 Want [...] Description 09/20/2024 10:45 AM EDT Office Visit [facility] Pulm & Critical Care Medicine [address] [place] [address] Jocelynn Cowan MD [address] [place] [address] documented as of this encounter Visit Diagnoses Not on filedocumented in this encounter Care Teams Keyseater Operator Relationship Specialty Start Date End Date Rip Aguilar MD [address] [place] [address] PCP - General General Internal Medicine 11/11/22 documented as of this encounter
--- OUTSIDE RECORDS SUMMARY | 2024-08-09 11:17 | XMS_ITS | Referral Summary ---
Author Organization [employer] ([place], [place], [place], [place]) Address [address] [place] [address] Care Team Providers Care Spine Specialist Name Role Phone Rip Aguilar MD Primary Care Provider [phone] Encounters Date Type Department Care Team Description 07/14/2024 Travel 07/14/2024 12:15 PM EDT Lab Patient Walk-In [facility] Lab [address] [place] [phone] Acute deep vein thrombosis (DVT) of popliteal vein of left lower extremity (HCC); Atherosclerosis of artery of both lower extremities (HCC); Cigarette nicotine dependence with nicotine-induced disorder 07/14/2024 Outside Orders [facility] Admitting [address] [place] [phone] Elena López PA-C Acute deep vein thrombosis (DVT) of popliteal vein of left lower extremity (HCC) (Primary Dx); Atherosclerosis of artery of both lower extremities (HCC); Cigarette nicotine dependence with nicotine-induced disorder 07/05/2024 Telephone [facility] Cardiology [address] [place] [address] Jocelynn Cowan MD Medication Management 06/29/2024 Telephone [facility] Pulm & Critical Care Medicine [address] [facility] [address] [address] Jocelynn Cowan MD Medication Management 06/29/2024 Travel 06/29/2024 10:45 AM EDT Office Visit [facility] Pulm & Critical Care Medicine [address] [phone] Jocelynn Cowan MD Abnormal chest CT (Primary Dx); Abnormal pulmonary function test; Chronic obstructive pulmonary disease, unspecified COPD type (HCC); Chronic cough; Dyspnea on exertion; Multiple lung nodules on CT; Tobacco dependence due to cigarettes; Allergies; At risk for obstructive sleep apnea; Screening for lung cancer; Snoring 06/22/2024 Travel 06/22/2024 8:53 AM EDT - 06/22/2024 11:59 PM EDT Hospital Encounter [facility] Pulmonary Lab [address] [place] [address] Jocelynn Cowan MD Chronic cough; Dyspnea on exertion Discharge Disposition: Home or Self Care 06/22/2024 8:52 AM EDT Hospital Encounter [facility] CT Imaging [address] [place] [address] Jocelynn Cowan MD Tobacco dependence due to cigarettes; Screening for lung cancer Discharge Disposition: Home or Self Care 05/29/2024 Travel 05/29/2024 11:00 AM EDT Office Visit [facility] Pulm & Critical Care Medicine [address] [place] [address] [phone] Jocelynn Cowan MD Dyspnea on exertion (Primary Dx); Tobacco dependence due to cigarettes; Allergies; At risk for obstructive sleep apnea; Chronic cough; Chronic respiratory failure with hypoxia (HCC); Overweight; Screening for lung cancer; Snoring from Last 3 Months Allergies No known active allergies Medications losartan [...] Date Spondylolisthesis of lumbar region 12/29/2023 12/29/2023 Social History Tobacco Use Types Packs/Day Years Used Date Smoking Tobacco: Every Day Cigarettes Smokeless Tobacco: Current Tobacco Cessation:Ready to Q uit: No; Counseling Given: Yes Comments:Smokes ppd or more. Occasional chewing tobacco Alcohol Use Standard Drinks/Week Comments Never 0 (1 standard drink = 0.6 oz pur e alcohol) [facility] - Mental Health Answer Date [...] Date Edgardo rded Speak language other than Maori at home Not on file 02/25/2023 Want [...] Description 09/20/2024 10:45 AM EDT Office Visit [facility] Pulm & Critical Care Medicine [address] [place] [address] Jocelynn Cowan MD [address] [place] [phone] Medical Devices Implanted Type Area Retail Sales Specialist Device Identifier Shelf Expiration Date Model / Serial / Lot Bone Vivigen Formable Cell 5cc Bl-1600-002 - [id number] Implanted:Qty : 1 on 12/29/2023 by Lon Dixon MD at [facility] IMPLANTS N/A: Spine Lumbar LIFENET:LIFENET TRANSPLANT SRV 12/02/2024 BL-1600-0 02 / [id number] / Cage Eit Plif H 8mm 8d 03/11 [id number] - [id number] Implanted:Qty : 1 on 12/29/2023 by Lon Dixon MD at [facility] IMPLANTS N/A: Spine Lumbar J &J:DEPUY:DEPUY SPINE 09/07/2033 [id number] / / [id number] Cage T/Plif 10mm [id number] - [id number] Implanted:Qty : 1 on 12/29/2023 by Lon Dixon MD at [facility] IMPLANTS N/A: Spine Lumbar J &J:DEPUY:DEPUY SPINE 10/08/2033 [id number] / / [id number] Bone Putty Stimulan c 620-005 - [id number] Implanted:Qty : 1 on 12/29/2023 by Lon Dixon MD at [facility] IMPLANTS N/A: Spine Lumbar BIOCOMPOS[employer]ES 08/07/2026 [id number] / / [id number] Scr Spne Alexandr Fix 6x55mm 655 - [id number] Implanted:Qty : 5 on 12/29/2023 by Lon Dixon MD at [facility] IMPLANTS N/A: Spine Lumbar J &J:DEPUY:DEPUY SPINE 6 55 / 6 55 / Scr Spne Alexandr Fix 6x50mm 650 - [id number] Implanted:Qty : 1 on 12/29/2023 by Lon Dixon MD at [facility] IMPLANTS N/A: Spine Lumbar J &J:DEPUY:DEPUY SPINE -6 50 / 6 50 / Mis Sergio Ply Scrw Set Ti - [id number] Implanted:Qty : 6 on 12/29/2023 by Lon Dixon MD at [facility] IMPLANTS N/A: Spine Lumbar J &J:DEPUY:DEPUY SPINE -0 00 / 0 00 / Marcello Pre Load 75mm [id number] - [id number] Implanted:Qty : 2 on 12/29/2023 by Lon Dixon MD at [facility] IMPLANTS N/A: Spine Lumbar J &J:DEPUY:DEPUY SPINE -0 75 / 0 75 / Procedures Procedure Name Priority Date/Time [...] 10.8 K/ L 07/14/2024 12:05 PM EDT [facility] RBC 4.63 3.80 - 5.20 M/ L 07/14/2024 12:05 PM EDT [facility] Hemoglobin 13.8 12.8 - 17.4 GM/DL 07/14/2024 12:05 PM EDT [facility] Hematocrit 41.5 39.0 - 51.0 % 07/14/2024 12:05 PM EDT [facility] MCV 90 81 - 101 fL 07/14/2024 12:05 PM EDT [facility] MCH 29.8 27.0 - 34.0 pg 07/14/2024 12:05 PM EDT [facility] MCHC 33.3 32.0 - 36.0 GM/DL 07/14/2024 12:05 PM EDT [facility] RDW 15.0(H) 11.5 - 14.5 % 07/14/2024 12:05 PM EDT [facility] Platelets 157 150 - 400 K/CU MM 07/14/2024 12:05 PM EDT [facility] MPV 11.2 9.4 - 12.4 fL 07/14/2024 12:05 PM EDT [facility] Nucleated Red Blood Cell 0.0 0 - 0.2 % 07/14/2024 12:05 PM EDT [facility] NRBC Absolute <0.01 0 - 0.012 K/ul 07/14/2024 12:05 PM EDT [facility] Blood Venipuncture / Unknown 07/14/2024 11:44 AM EDT 07/14/2024 11:46 AM EDT Narrative [facility] - 07/14/2024 12:05 PM EDT [...] PA-C LAB BLOOD ORDERABLES Final R esult [facility] [address] [place] [address] * (ABNORMAL) Manual Differential (07/14/2024 11:44 AM EDT) Total Counted 100 07/14/2024 12:06 PM EDT [facility] % Neutros (manual) 62 15 - 67 % 07/14/2024 12:06 PM EDT [facility] % Bands (manual) 1(L) 2 - 21 % 07/14/2024 12:06 PM EDT [facility] % Lymphs (manual) 28 10 - 50 % 07/14/2024 12:06 PM EDT [facility] % Monos (manual) 8 2 - 10 % 07/14/2024 12:06 PM EDT [facility] % Eos (manual) 1 0 - 7 % 07/14/2024 12:06 PM EDT [facility] RBC Morphology Normal Normal 07/14/2024 12:06 PM EDT [facility] Platelet Estimate Adequate Adequate 07/14/2024 12:06 PM EDT [facility] ANC# 6.49 K/ L 07/14/2024 12:06 PM EDT [facility] Blood Venipuncture / Unknown 07/14/2024 11:44 AM EDT 07/14/2024 11:46 AM EDT us Elena López PA-C LAB BLOOD ORDERABLES Final R esult [facility] [address] [place] [address] * (ABNORMAL) Basic Metabolic Panel (07/14/2024 11:44 AM EDT) Sodium 139 136 - 145 meq/L 07/14/2024 12:02 PM EDT [facility] Potassium 3.9 3.5 - 5.1 meq/L 07/14/2024 12:02 PM EDT [facility] Chloride 105 98 - 107 meq/L 07/14/2024 12:02 PM EDT [facility] CO2 29 21 - 32 meq/L 07/14/2024 12:02 PM EDT [facility] Anion Gap 9(L) 11 - 22 07/14/2024 12:02 PM EDT [facility] BUN 11 7 - 18 mg/dL 07/14/2024 12:02 PM EDT [facility] Creatinine 1.15 0.70 - 1.20 mg/dL 07/14/2024 12:02 PM EDT [facility] BUN/Creatinine 10 07/14/2024 12:02 PM EDT [facility] Glucose 89 70 - 99 mg/dL 07/14/2024 12:02 PM EDT [facility] Calcium 9.0 8.5 - 10.1 mg/dL 07/14/2024 12:02 PM EDT [facility] Osmolality Calc 276.4 mOsm/kg 12:02 PM EDT [facility] eGFR (mL/min/1.73m2) >60 >=60 mL/min/1.7 3m2 07/14/2024 12:02 PM EDT [facility] Comment:eGFR of <60 suggests chronic kidney disease if found over a 3 month period of time. eGFR <15 indicates renal failure. Blood Venipuncture / Unknown 07/14/2024 11:44 AM EDT 07/14/2024 11:46 AM EDT us Elena López PA-C LAB BLOOD ORDERABLES Final R esult [facility] [address] [place] [address] * CT LUNG SCREENING ANNUAL FOLLOWUP (06/22/2024 [...] Advance Directives For more information, please contact: [phone] * Full Code (Latest Code Status on File) Date Activated Date Inactivated Comments 12/29/2023 11:16 AM 01/01/2024 4:28 PM Healthcare Agents on File Name Relationship Healthcare Agent Relationshi p Communication Padmini Vice Spouse Healthcare Decision-Maker Care Teams Spine Specialist Relationship Specialty Start Date End Date Rip Aguilar MD [address] [place] [address] PCP - General General Internal Medicine 11/11/22
--- NOTE | 2024-08-09 12:20 | EXP.PAIN.SOA ---
[facility] Disclaimer: The information contained in this section may have been updated after the patient was seen, as this information can be updated by other users. Medical History Prediabetes Seasonal allergies HTN (hypertension) HLD (hyperlipidemia) Surgical History H/O prostate biopsy Family History Other Diabetes Heart disease Hypertension Social History Smoking Status: Current every day smoker alcohol intake: never substance use type: denies use current occupational status: other Travel in the last 8 weeks?: None PM Subjective & Objective Subjective Subjective:: Patient is a pleasant 69-year-old male who presents today for follow-up of trigger point injections on 07/28/2024. Today he states he had 80% relief with these and feels like those are doing so much better in and around his neck and shoulder area. Patient does state that he still has a lot of popping and cracking but no pain. Patient does rate his pain a 4 out of 10 on his low back however rates with increased activity or certain positions he goes to a 7 out of 10. Patient would like to see about additional injections for his low back as it is interfering with his ability to perform activities of daily living such as cooking and cleaning. Patient is stating it is still that same pain that is worse with prolonged positioning or laying down. He states it goes into both his hips. He denies any symptoms into his legs. Patient is prescribed pregabalin 150 mg 4 times a day from our office and methocarbamol 500 mg 3 times a day along with compounded cream. He is asking whether or not if we could possibly go back to the gabapentin as he has noticed more weight gain with the pregabalin. He has been tried on this medication in the past with no side effects. His Ganesh has been reviewed and is appropriate. Review of Systems: General: No recent weight changes, no fever, no sleep disturbances Respiratory: No cough, no shortness of air, no recurring pulmonary infections Cardiovascular/peripheral vascular: No chest pain, no palpitations, no edema, no shortness of breath Gastrointestinal: No new onset incontinence, normal bowel movements reported Genitourinary: No new onset incontinence Musculoskeletal: Low back pain, bilateral hip pain Psychiatric: [Normal mood/affect] Neurological: [Denies weakness in extremities], [denies balance issues] Pain at rest (0-10 scale): 7 Objective Objective:: Physical Exam: General: Alert and oriented x3, no acute distress, pleasant and cooperative Lungs: Respirations even and unlabored, symmetrical chest expansion Eyes: PERRL Musculoskeletal: Flexion and extension of lumbar [spine] somewhat guarded secondary to pain, [antalgic gait noted] point tenderness along bilateral SIs with positive bilateral Cristiano's, Ken's, Gaenslen's, compression and distraction exam Neurological: Speech clear, no gross sensory deficit Has patient had previous pain injection?: Yes Percent improvement in pain since last injection: 80% Conservative treatment options previously tried: Home exercise plan Length of treatment: Longer than 12 weeks Meds Home Medications and Allergies Home Medications ?Medication ?Instructions ?Recorded ?Confirmed ?Type cetirizine 10 mg tablet 10 mg PO DAILY ALLERGIES 07/01/22 07/28/24 History hydrochlorothiazide 25 mg tablet 25 mg PO DAILY Fluid 07/01/22 07/28/24 History losartan 100 mg tablet 100 mg PO DAILY BLOOD PRESSURE 07/01/22 07/28/24 History omeprazole 20 mg capsule,delayed 20 mg PO DAILY GERD 07/01/22 07/28/24 History release gabapentin 300 mg capsule 300 mg PO QID #120 caps 02/12/23 07/28/24 Rx gabapentin 300 mg capsule 300 mg PO QID #120 caps 03/08/23 07/28/24 Rx diclofenac sodium 75 mg 75 mg PO BID #60 tabs 04/19/24 07/28/24 Rx tablet,delayed release apixaban 5 mg tablet (Eliquis) 5 mg PO BID Blood Thinner 07/12/24 07/28/24 History methocarbamol 500 mg tablet 500 mg PO TID #42 tabs 07/12/24 07/28/24 Rx pregabalin 150 mg capsule (Lyrica) 150 mg PO QID #120 caps 07/12/24 07/28/24 Rx New Prescriptions to Start Prescriptions: Allergies Allergy/AdvReac Type Severity Reaction Status Date / Time No Known Allergies Allergy Verified 05/16/24 08:33 Assessment and Plan *Assessment and plan (1) Bilateral sacroiliitis: Status: Acute Category: Medical Code(s): M46.1 - Sacroiliitis, not elsewhere classified Plan Patient is experiencing worsening pain along the low back and bilateral hips. They did have limited range of motion of the lumbar spine along with point tenderness along bilateral SI joints and a positive bilateral Cristiano's, Ken's, Gaenslen's, compression and distraction exam. I did discuss with the patient that I do believe they would benefit from bilateral SI injections. Risk and benefits were discussed with the patient and they would like to proceed forward with this option. Patient has tried and failed conservative therapy. Patient has been actively doing conservative treatment including oral medication, heat and ice, topicals, at home exercising and stretching for longer than 12 weeks. Patient is having to adjust their activity based off the increased pain resulting in activity modification. I do believe the patient would benefit from SI injection. Patient did have his last SI injections back in May that did provide 80% improvement and have been doing well up until now. Patient has had chronic low back pain for longer than a year. Patient will be scheduled for therapeutic injections with less than 1.5 mL of solution to be injected. I will also change his pregabalin to gabapentin 300 mg 3 times a day and refill his muscle relaxer. Patient will be scheduled for bilateral SI injections under fluoroscopy. Patient has been instructed to contact the clinic with any concerns before the next appointment. Dr. Campos has reviewed this note and agrees with this plan of care. This note was dictated using voice recognition software and make contain errors or omissions. All injections are used with Lidocaine or Bupivacaine and dexamethasone unless diagnostic in which no steroids were injected.
[2024-08-09 13:44] VITALS: BP 118/69; PULSE 78; RESP 12; O2SAT 96; BMI 28.7
== END 2024-08-09 23:59 | disposition home or self-care (01) ==
PROVIDERS: Visit Provider Nurse Practitioner Family
DX: M46.1 Sacroiliitis, not elsewhere classified (principal); Z79.899 Other long term (current) drug therapy
CPT/HCPCS: 99212; G0463

== ENCOUNTER 2024-09-19 08:26 | Day surgery (SDC) | payer BC, SELFPAY ==
[2024-09-19 08:35] VITALS: BP 143/70; PULSE 69; RESP 18; O2SAT 96; BMI 28.7
[2024-09-19] MEDS: BUPIVACAINE 0.25% 10ML INJ 25 MG IJ (08:56)
[2024-09-19 08:57] VITALS: BP 123/71; PULSE 75; RESP 18; O2SAT 95
[2024-09-19] MEDS: LIDOCAINE 1% 5ML PF VIAL 5 ML (08:57)
[2024-09-19] MEDS: DEXAMETHASONE 10MG/ML 1ML VIAL 10 MG (08:57)
[2024-09-19 08:58] VITALS: BP 123/71; PULSE 73; RESP 18; O2SAT 95
[2024-09-19 09:03] VITALS: BP 130/73; PULSE 89; RESP 18; O2SAT 100
--- NOTE | 2024-09-19 09:14 | P.PCN_ITS ---
Procedure Date: 09/19/24 Time: 08:50 Anesthesiologist:: Albert Gibbs CRNA Complications:: None Pre-procedure Diagnosis:: Bilateral sacroiliitis Post-procedure Diagnosis:: Same Indications for Procedure:: Patient is a very pleasant 69-year-old male who comes our clinic today for bilateral sacroiliac joint injections cortisone local anesthetic. Patient describes low lumbar back pain off the midline bilaterally. Bilateral posterior hip pain. Difficulty transitioning from sitting to standing. He rates his pain 7/10. Procedure Details:: Procedure: Bilateral sacroiliac joint injections under fluoroscopy Informed consent was obtained and the risks and benefits of the procedure were explained to the patient.~ The patient was taken to the procedure room and noninvasive monitors were placed including a noninvasive blood pressure cuff and pulse oximeter.~ The patient was placed prone on the procedure table. Both hips were cleansed using Betadine as a cleansing solution. C-arm fluoroscopy was used to view the right sacroiliac joint.~ The skin and subcutaneous tissues were anesthetized using lidocaine 1.5% and a 25-gauge needle.~ After this, a 22-gauge spinal needle was inserted under fluoroscopic guidance into the inferior aspect of the right sacroiliac joint.~ Omnipaque dye was injected and good spread was seen throughout the joint.~ After this, approximately 5 mL of bupivacaine, 0.25% and dexamethasone 5 mg was incrementally injected into the right sacroiliac joint. We then moved to the left sacroiliac joint.~ The skin and subcutaneous tissues were anesthetized using lidocaine 1.5% and a 25-gauge needle.~ After this, a 22- gauge spinal needle was inserted under fluoroscopic guidance into the inferior aspect of the left sacroiliac joint.~ Omnipaque dye was injected and good spread was seen throughout the joint. After this, approximately 5 mL of bupivacaine, 0.25% and dexamethasone 5 mg was incrementally injected into the left sacroiliac joint.~ The patient tolerated the procedure well with no complications. The patient was observed in the Pain Clinic and then was discharged home neurologically intact. Plan and Disposition:: Patient was discharged without incident.
== END 2024-09-19 09:03 | disposition home or self-care (01) ==
LOC: SC.PAINP 08:27
PROVIDERS: PCP Pediatrics; Visit Provider Nurse Anesthetist, Certified Registered
DX: M46.1 Sacroiliitis, not elsewhere classified (principal); E78.5 Hyperlipidemia, unspecified; I10 Essential (primary) hypertension; R73.03 Prediabetes; F17.200 Nicotine dependence, unspecified, uncomplicated; Z79.01 Long term (current) use of anticoagulants; Z79.899 Other long term (current) drug therapy
CPT/HCPCS: G0260; J0665; J1100; J2003

== ENCOUNTER 2024-12-19 09:20 | Day surgery (SDC) | payer BC, SELFPAY ==
[2024-12-19 09:23] VITALS: BP 137/60; PULSE 71; RESP 16; O2SAT 95; BMI 29.4
[2024-12-19] MEDS: DEXAMETHASONE 10MG/ML 1ML VIAL 10 MG (09:39)
[2024-12-19 09:40] VITALS: BP 131/76; PULSE 90; RESP 18; O2SAT 95
[2024-12-19 09:42] VITALS: BP 131/76; PULSE 90; RESP 18; O2SAT 95
[2024-12-19] MEDS: IOPAMIDOL-200 (41%);10ML VIAL 2 ML IV (09:43)
--- NOTE | 2024-12-19 09:47 | P.PCN_ITS ---
Procedure Date: 12/19/24 Time: 09:25 Anesthesiologist:: Ousmane Gibbs CRNA Complications:: None Pre-procedure Diagnosis:: Degenerative disc cervical spine multilevels. Cervical radiculopathy. Multilevel cervical disc bulge. Cervical spondylosis. Post-procedure Diagnosis:: Same. Indications for Procedure:: Patient is a very pleasant 69-year-old male who comes our clinic today for cervical epidural steroid injection. Patient describes posterior cervical neck pain as well as right arm radicular symptoms to the fingers. He rates his pain 7/10. Procedure Details:: Procedure:Cervical epidural steroid injection Informed consent was obtained and the risks and benefits of the procedure were explained to the patient. The patient was taken to the procedure room and noninvasive monitors placed, including noninvasive blood pressure cuff and pulse oximeter. The neck was prepped using Chloraprep as a cleansing solution. The C7- T1 interspace was viewed using fluroscopy. The skin and subcutaneous tissues were anesthetized using lidocaine 1.5% and a 25-gauge needle. After this an 18- gauge Touhy epidural needle was placed into the C7 and T1 interspace under fluroscopy guidance and advanced using loss of resistance to air until the epidural space was encountered. After confirmation of needle placement in the epidural space using contrast dye, dexamethasone 10 mg ( 1 ML) was incrementally injected into the cervical epidural space.~ The patient tolerated the procedure well with no complications. The patient was observed in the Pain Clinic and then discharged home neurologically intact. Plan and Disposition:: Patient was discharged without incident.
[2024-12-19 09:51] VITALS: BP 146/63; PULSE 84; RESP 16; O2SAT 97
== END 2024-12-19 09:51 | disposition home or self-care (01) ==
PROVIDERS: PCP Pediatrics; Visit Provider Nurse Anesthetist, Certified Registered
DX: M50.13 Cervical disc disorder with radiculopathy, cervicothoracic region (principal); M47.22 Other spondylosis with radiculopathy, cervical region; E78.5 Hyperlipidemia, unspecified; I10 Essential (primary) hypertension; F17.200 Nicotine dependence, unspecified, uncomplicated; Z79.1 Long term (current) use of non-steroidal anti-inflammatories (NSAID); Z79.899 Other long term (current) drug therapy
CPT/HCPCS: 62321; J1100; Q9966